=== PATIENT | female | born 1950 | race Caucasian/White ===

== ENCOUNTER → 2018-10-10 08:33 | Outpatient (CLI) | payer MEDICARE, BC, SELFPAY ==
--- NOTE | 2018-10-10 08:44 | XR_ITS ---
XR DEXA axial skeleton HISTORY: ITS.REASON: POST MENOPAUSAL ORDERING PHYSICIAN: Samia Cai APRN PATIENT AGE: 68 years COMPARISON: 05/27/2011 FINDINGS: The BMD measured at the left femoral neck is 0.657 g/cm squared with a T score of -2.7. This is considered osteoporosis according to the World Health Organization criteria. Fracture risk is high. Treatment is advised. L1 L4 density has a T score of -1.3 and has increased by 5.4% The mean hip density has increased by 1.8% IMPRESSION: Osteoporosis with high fracture risk. Treatment is advised. Suggest follow-up exam October 2019
== END ==
PROVIDERS: PCP Family Medicine; Visit Provider Nurse Practitioner Family
DX: M81.0 Age-related osteoporosis without current pathological fracture (principal)
CPT/HCPCS: 77080

== ENCOUNTER 2018-11-05 09:52 | Outpatient (CLI) | payer MEDICARE, BC, SELFPAY ==
[2018-11-05 10:08] VITALS: BP 124/70; PULSE 76; RESP 18; TEMP 36.4; O2SAT 94
[2018-11-05 10:38] VITALS: BP 128/82; PULSE 79; RESP 18; TEMP 36.6; O2SAT 95
== END 2018-11-05 10:38 | disposition home or self-care (01) ==
LOC: INF 09:55
PROVIDERS: PCP Family Medicine; Visit Provider Nurse Practitioner Family
DX: M81.0 Age-related osteoporosis without current pathological fracture (principal)
CPT/HCPCS: 96372; J0897

== ENCOUNTER → 2019-03-12 14:38 | Outpatient (CLI) | payer MEDICARE, BC, SELFPAY ==
--- NOTE | 2019-03-12 14:48 | XR_ITS ---
PROCEDURE: XR RIBS RT MIN 3V W CXR1V CLINICAL INDICATION: RIB PAIN, HX BREAST CANCER Posttraumatic pain, history of breast cancer COMPARISON: [id number] VIEWS from 09/01/2015 FINDINGS: Frontal view of the chest shows slight increased markings in the right lung base probably due to overlying vasculature. No lobar consolidation or collapse. Multiple views of the right ribs show no evidence of acute fracture, lytic change, or blastic change. There is mild lumbar scoliosis convex right. IMPRESSION: No acute findings. The if symptoms persist, consider follow-up exam in 7-[address] with multiplanar reformats Dictated by: Jose Carlos Dempsey MD 03/12/2019 15:12 Electronically signed by Jose Carlos Dempsey MD in [facility] 03/12/2019 15:13
== END ==
PROVIDERS: PCP Family Medicine; Visit Provider Family Medicine
DX: R07.81 Pleurodynia (principal); Z85.3 Personal history of malignant neoplasm of breast
CPT/HCPCS: 71101

== ENCOUNTER → 2019-04-01 11:21 | Outpatient (CLI) | payer MEDICARE, BC, SELFPAY ==
--- NOTE | 2019-04-01 11:28 | XR_ITS ---
PROCEDURE: XR THORACIC SPINE 3V CLINICAL INDICATION: THORACIC PAIN COMPARISON: No exams were available for comparison FINDINGS: Bone density, vertebral body heights and alignment are normal. There is moderate narrowing of the anterior aspect of the disc spaces at several upper and midthoracic levels. Posterior elements appear to be intact and there are no paraspinal soft tissue densities. IMPRESSION: Upper and mid thoracic degenerative disc disease. No acute process. Dictated by: Sonny Ritter 04/01/2019 15:03 Electronically signed by Sonny Ritter in [facility] 04/01/2019 15:03
== END ==
PROVIDERS: PCP Nurse Practitioner Family; Visit Provider Nurse Practitioner Family
DX: M54.6 Pain in thoracic spine (principal)
CPT/HCPCS: 72072

== ENCOUNTER 2019-05-09 09:59 | Outpatient (CLI) | payer MEDICARE, BC, SELFPAY ==
[2019-05-09 10:05] VITALS: BP 110/57; PULSE 83; RESP 20; TEMP 36.9; O2SAT 95
== END 2019-05-09 10:40 | disposition home or self-care (01) ==
LOC: INF 09:59
PROVIDERS: Visit Provider Nurse Practitioner Family
DX: M81.0 Age-related osteoporosis without current pathological fracture (principal)
CPT/HCPCS: 96372; J0897

== ENCOUNTER → 2019-07-26 16:09 | Outpatient (CLI) | payer MEDICARE, BC, SELFPAY ==
--- NOTE | 2019-07-26 | CA_ITS ---
APPROVED REPORT Left Lower Extremity Venous Study for DVT. Production Staff Worker: MARIANA Indications Lower Extremity Pain: Lower Extremity Edema: Left Hyperlipidemia. Risk Factors History of Smoking Patient states her left lower extremity began swelling and hurting 07/22/19. She denies any trauma. She states the pain is so great she is unable to sleep at night. She notes some red streaking on the mid medial calf area of the left LE. Vein Imaging CFV (L): compressive, spontaneous, phasic, augmentation FEM (L): compressive, spontaneous, phasic, augmentation POP (L): compressive, spontaneous, phasic, augmentation PTV (L): Compressible GSV (L): Thrombus SSV (L): Thrombus Peroneals (L):Compressible GAS (L): Compressible Findings No evidence of DVT in LLE. SVT seen in the GSV beginning in the mid thigh and extending to mid calf in the LLE. SVT seen in the SSV in popliteal fossa of the LLE. Conclusion No evidence of DVT in LLE. SVT seen in the GSV beginning in the mid thigh and extending to mid calf in the LLE. SVT seen in the SSV in popliteal fossa of the LLE. Critical Notification Physician Notified Date: 07/26/2019 Time: 16:50 Physician Name: Samia Cai Report Read Back Electronically signed by : Jose Carlos Dempsey MD 07/29/2019 16:23:40
== END ==
PROVIDERS: PCP Family Medicine; Visit Provider Nurse Practitioner Family
DX: M79.89 Other specified soft tissue disorders; M79.605 Pain in left leg
CPT/HCPCS: 93971

== ENCOUNTER → 2019-09-18 10:14 | Outpatient (CLI) | payer MEDICARE, BC, SELFPAY ==
--- NOTE | 2019-09-18 | CA_ITS ---
APPROVED REPORT Left Lower Extremity Venous Study for DVT. Poultry Helper: MARIANA Indications Lower Extremity Pain: Past History SVT : Date : 07/26/19 SVT in distal GSV and SSV 07/26/19 Medications Lovenox Patient states she was placed on blood thinners for 45 days. Vein Imaging CFV (L): compressive, spontaneous, phasic, augmentation FEM (L): compressive, spontaneous, phasic, augmentation POP (L): compressive, spontaneous, phasic, augmentation PTV (L): Compressible GSV (L): Partially Compressible SSV (L): Compressible Peroneals (L):Compressible GAS (L): Compressible Conclusion No evidence of DVT in the veins scanned of the left lower extremity. Resolved SVT of the GSV and SSV seen in LLE. Electronically signed by : Jose Carlos Dempsey MD 09/18/2019 16:17:24
== END ==
PROVIDERS: PCP Family Medicine; Visit Provider Nurse Practitioner Family
DX: I82.812 Embolism and thrombosis of superficial veins of left lower extremity (principal)
CPT/HCPCS: 93971

== ENCOUNTER 2019-11-13 09:55 | Outpatient (CLI) | payer MEDICARE, BC, SELFPAY ==
[2019-11-13 10:10] VITALS: BP 113/75; PULSE 76; RESP 20; TEMP 36.3; O2SAT 96
== END 2019-11-13 10:27 | disposition home or self-care (01) ==
LOC: INF 09:55
PROVIDERS: Visit Provider Nurse Practitioner Family
DX: M81.0 Age-related osteoporosis without current pathological fracture (principal)
CPT/HCPCS: 96372; J0897

== ENCOUNTER → 2020-02-15 11:23 | Outpatient (CLI) | payer MEDICARE, BC, SELFPAY ==
[2020-02-15 12:55] LABS: Coronavirus 19 IgG Antibody Negative (Negative); Coronavirus 19 IgM Antibody Negative (Negative)
== END ==
PROVIDERS: Visit Provider Internal Medicine Gastroenterology
DX: Z01.818 Encounter for other preprocedural examination (principal); Z12.11 Encounter for screening for malignant neoplasm of colon; Z86.010 Personal history of colon polyps
CPT/HCPCS: 36415; 86328

== ENCOUNTER 2020-02-17 11:48 | Day surgery (SDC) | payer MEDICARE, BC, SELFPAY ==
[2020-02-11 14:02] VITALS: BMI 32.0
[2020-02-17 12:17] VITALS: BP 123/72; PULSE 95; RESP 18; TEMP 36.3; O2SAT 95
--- NOTE | 2020-02-17 12:43 | P.PN_ITS ---
[facility] Anesthesia Checklist - Patient Identification Patient Identification: Arm Band - Structural Data Admitted From: Home Planned Operative Procedure/s: colonoscopy Consent for Planned Operative Procedure(s) Verified: Yes Verified Documents: Surgical Consent, History and Physical - NPO Status Verified Time NPO: 00:00 - Additional verifications Anesthesia Reactions: No - Airway Assessment C-Spine Mobility Assessed: Yes (mp2) TMJ Mobility Assessed: Yes Dentition: Good Dentition - Neurological Assessment Level of Consciousness: Awake, Alert - Anesthesia Plan Anesthesia Risk discussed: Yes Anesthesia Plan: Verified ASA Class: III Anesthesia Type: MAC [facility] History I have reviewed the patient's past medical history: Yes Medical History: Reports:: Cancer (breast l), Deep Vein Thrombosis, Hyperlipidemia Denies:: Diabetes Mellitus Type 1, Diabetes Mellitus Type 2, Internal Pacemaker, MRSA, Seizures *Have you ever received a pneumonia vaccine?: No *Have you received a flu vaccine this season?: Yes Other Medical History: Reports: Arthritis, Hormone Therapy Anesthesia experience/problems:: nac Laterality Cases: Left: Lumpectomy, Bilateral: Tonsillectomy Other Surgeries: Yes: Cholecystectomy, Tubal Ligation, Other. No: Pacemaker Amputation: No Fractures: No - *Social History Last grade of school completed: Advanced degree Smoking Status: Current some day smoker Tobacco Type: cigarettes # Packs/Day (cigarettes): 1 Alcohol Intake: never Substance Use Type: denies use *Occupational Status:: retired Housing: house Household Members: none *Travel in the last 8 weeks: None Family Hx:: Cancer, Diabetes, Stroke
[2020-02-17 12:55] VITALS: O2SAT 97
--- NOTE | 2020-02-17 13:23 | P.PCN_ITS ---
[facility] Procedure Note Procedure Note:: Colonoscopy Procedure Report: Colonoscopy with cold snare polypectomy Endoscopist: Kerwin Basilio II, MD Referring physician: Carlton Mcdaniel MD Date of Procedure: February 17, 2020 Equipment: Olympus 180 variable stiffness pediatric colonoscope Sedation: MAC sedation Indication: Mrs. Zamarripa is a 70-year-old female who is here for follow-up screening/surveillance colonoscopy secondary to a personal history of colon polyps. The patient did have a colonoscopy 5 years ago at which time a couple of colon polyps were removed (Dr. Greg Lezama). The patient reports no abdominal pain, weight loss, change in her bowel habits or rectal bleeding. She reports no family history of colon cancer. Procedure: Prior to the procedure, a history and physical exam was performed, and patient's medications and allergies were reviewed. The risks, benefits and alternatives of the sedation and procedure were discussed with the patient. All questions were answered and informed consent was obtained. The patient was brought to the procedure room. Patient identification and proposed procedure were verified by the physician and the nurse. The patient was placed in a left lateral decubitus position and the scope was passed under direct vision. Throughout the procedure, the patient's blood pressure, pulse, and oxygen saturations were monitored continuously. The colonoscopy was accomplished without difficulty. The patient tolerated the procedure well. Findings: On digital rectal examination there was normal rectal tone. There were no external hemorrhoids. The colonoscope was introduced through the anal canal to the rectum and advanced to the cecum. The ileocecal valve and appendiceal orifice were identified. The scope was advanced a short distance into the ileum which appeared grossly normal. The scope was then withdrawn into the colon. There were a total of 8 colon polyps (cecum x2 (3 and 5 mm), ascending x3 (3, 6 and 8 mm), transverse x2 (4 and 5 mm) and descending x1 (3 mm)) which were all removed via cold snare polypectomy. The remaining cecum, ascending and transverse colon and mucosa were grossly normal. There were scattered diverticuli throughout the descending and sigmoid colon (LEFT colon). The rectum itself was normal. Upon retroflexion within the rectum there were grade 1-2 internal hemorrhoids. The preparation was excellent throughout with [place] Preparation Score of 9. The cecal time was 17 minutes. Impression: 1. Colonic polyps x8 2. Left-sided diverticulosis 3. Grade 1-2 internal hemorrhoids Plan: I will follow up the polyp pathology and recommend repeat colonoscopy again in 3 years based upon the polyp histology. I would encourage bulk fiber supplementation on a long-term daily maintenance basis.
[2020-02-17 13:25] VITALS: BP 111/54; PULSE 87; RESP 18; TEMP 36.1; O2SAT 90
[2020-02-17 13:35] VITALS: BP 126/67; PULSE 81; RESP 18; O2SAT 97
[2020-02-17 13:45] VITALS: BP 130/76; PULSE 74; RESP 18; O2SAT 98
[2020-02-17 14:12] VITALS: BP 134/73; PULSE 73; RESP 18; O2SAT 98
== END 2020-02-17 14:25 | disposition home or self-care (01) ==
LOC: OUTP 11:50
PROVIDERS: PCP Family Medicine; Visit Provider Internal Medicine Gastroenterology
PROC: 0DJD8ZZ Inspection of Lower Intestinal Tract, Via Natural or Artificial Opening Endoscopic (ICD-10-PCS; CPT 45378; principal; 2020-02-17 13:00)
DX: Z12.11 Encounter for screening for malignant neoplasm of colon (principal); Z86.010 Personal history of colon polyps; K63.5 Polyp of colon; K57.30 Diverticulosis of large intestine without perforation or abscess without bleeding; K64.0 First degree hemorrhoids; Z85.3 Personal history of malignant neoplasm of breast; E78.5 Hyperlipidemia, unspecified; I82.409 Acute embolism and thrombosis of unspecified deep veins of unspecified lower extremity; Z72.0 Tobacco use; Z88.2 Allergy status to sulfonamides; Z79.899 Other long term (current) drug therapy
CPT/HCPCS: 45385; 88305

== ENCOUNTER → 2020-05-12 12:12 | Outpatient (CLI) | payer MEDICARE, BC, SELFPAY ==
--- NOTE | 2020-05-12 12:32 | XR_ITS ---
PROCEDURE: XR LUMBAR SPINE MIN 4V CLINICAL INDICATION: ACUTE RT SIDED LBP COMPARISON: No exams were available for comparison FINDINGS: Mild lumbar scoliosis convex right. Multilevel degenerative disc disease. No acute fracture or dislocation. Small anterior osteophytes are present. Facet arthritic changes are present at L4-L5 and S1. no lytic or blastic change. There is generalized vascular calcification. IMPRESSION: Degenerative changes, no acute finding Dictated by: Jose Carlos Dempsey MD 05/12/2020 13:22 Jose Carlos Dempsey MD in [facility] 05/12/2020 13:22
== END ==
PROVIDERS: PCP Nurse Practitioner Family; Visit Provider Nurse Practitioner Family
DX: M54.42 Lumbago with sciatica, left side (principal)
CPT/HCPCS: 72110

== ENCOUNTER 2020-06-02 09:53 | Outpatient (CLI) | payer MEDICARE, BC, SELFPAY ==
[2020-06-02 10:18] VITALS: BP 116/69; PULSE 93; RESP 18; TEMP 36.3; O2SAT 95
== END 2020-06-02 10:40 | disposition home or self-care (01) ==
LOC: INF 09:53
PROVIDERS: Visit Provider Nurse Practitioner Family
DX: M81.0 Age-related osteoporosis without current pathological fracture (principal)
CPT/HCPCS: 96372; J0897

== ENCOUNTER → 2020-11-25 08:14 | Outpatient (CLI) | payer MEDICARE, BC, SELFPAY ==
--- NOTE | 2020-11-25 | CA_ITS ---
APPROVED REPORT Loss Prevention Auditor: Kala Ma RVT Laterality: Bilateral Study Quality: Good Indications: DIZZINESS Risk Factors Hypertension: Hyperlipidemia Smoking Doppler Spectral Velocity Analysis ECA (R) 88.30/12.90 cm/s ECA (L) 54.80/13.70 cm/s dICA (R) 88.30/24.00 cm/s dICA (L) 96.80/38.60 cm/s Tayla (R) 53.10/15.40 cm/s Tayla (L) 60.80/20.60 cm/s pICA (R) 52.30/12.90 cm/s pICA (L) 45.40/14.60 cm/s dCCA (R) 40.60/15.00 cm/s dCCA (L) 71.10/24.80 cm/s pCCA (R) 55.60/15.00 cm/s pCCA (L) 59.10/17.10 cm/s Vert (R) 44.60/15.40 cm/s Vert (L) 49.70/13.70 cm/s ICA/CCA 2.17 ICA/CCA 1.36 Findings Study suggests less than 20% stenosis of the right internal cartoid artery. Study suggests less than 20% stenosis of the left internal cartoid artery. Antegrade flow seen bilateral vertebral arteries. Bilateral thyroid nodules seen. Conclusion Study suggests less than 20% stenosis of the right internal cartoid artery. Study suggests less than 20% stenosis of the left internal cartoid artery. Antegrade flow seen bilateral vertebral arteries. Bilateral thyroid nodules seen. Electronically signed by : Jose Carlos Dempsey MD 11/25/2020 17:54:49
--- NOTE | 2020-11-25 08:22 | CT_ITS ---
PROCEDURE: CT HEAD/BRAIN WO CON CLINICAL INDICATION: DIZZINESS COMPARISON: No exams were available for comparison TECHNIQUE: Axial images obtained. All CT scans at the facility use one or more dose reduction, viz: automated exposure control, ma/kV adjustment per patient size (including targeted exams where dose is matched to indication, i.e. head), or iterative reconstruction technique. FINDINGS: No midline shift, mass effect, intracranial hemorrhage, hydrocephalus, or extra-axial fluid collection is evident. The calvarium has an unremarkable appearance. No mastoid effusion. No sinus air-fluid level. IMPRESSION: No acute intracranial finding Dictated by: Jose Carlos Dempsey MD 11/25/2020 17:40 Jose Carlos Dempsey MD in [facility] 11/25/2020 17:40
--- NOTE | 2020-11-25 08:22 | US_ITS ---
PROCEDURE: US ABDOMEN LIMITED CLINICAL INDICATION: ABD PAIN,H/O PANCREATIC CA COMPARISON: No exams were available for comparison FINDINGS: PANCREAS: Pancreatic tail is not well delineated due to overlying bowel gas. CT or MRI without and with contrast with pancreatic protocol may provide further evaluation if clinically desired. The remaining pancreas has an unremarkable appearance. If there is indeed history pancreatic cancer then would suggest CT or MRI of the pancreas for further evaluation. LIVER: No focal liver lesions demonstrated. Homogeneous echogenicity. No intrahepatic biliary ductal dilatation evident. There is appropriate direction of blood flow within a non dilated portal vein RIGHT KIDNEY: Unremarkable. Normal size and echogenicity. No hydronephrosis GALLBLADDER: Prior cholecystectomy. Common bile duct is normal at 3 mm. IMPRESSION: Prior cholecystectomy. Body and head of the pancreas appear unremarkable. The tail is not well visualized. If there is indeed a history of pancreatic cancer then further evaluation with CT or MRI would be suggested. Dictated by: Jose Carlos Dempsey MD 11/25/2020 16:33 Jose Carlos Dempsey MD in [facility] 11/25/2020 16:33
== END ==
PROVIDERS: PCP Family Medicine; Visit Provider Nurse Practitioner Family
DX: R42 Dizziness and giddiness (principal); Z80.0 Family history of malignant neoplasm of digestive organs
CPT/HCPCS: 70450; 76705; 93880

== ENCOUNTER 2020-12-01 09:50 | Outpatient (CLI) | payer MEDICARE, BC, SELFPAY ==
[2020-12-01 10:00] VITALS: BP 101/46; PULSE 89; RESP 20; TEMP 36.9; O2SAT 95
== END 2020-12-01 10:10 | disposition home or self-care (01) ==
LOC: INF 09:52
PROVIDERS: PCP Nurse Practitioner Family; Visit Provider Nurse Practitioner Family
DX: M81.0 Age-related osteoporosis without current pathological fracture (principal)
CPT/HCPCS: 96372; J0897

== ENCOUNTER → 2021-03-12 12:16 | Outpatient (CLI) | payer MEDICARE, BC, SELFPAY ==
--- NOTE | 2021-03-12 12:20 | XR_ITS ---
PROCEDURE: XR KUB CLINICAL INDICATION: FLANK PAIN COMPARISON: No exams were available for comparison FINDINGS: Prior cholecystectomy. There is a moderate amount of retained colonic feces. Numerous small calcific densities are present in the left mid pelvic region. These could be due to ureteral calculi. CT may confirm. IMPRESSION: Numerous calcific densities in the left mid pelvic region which could represent ureteral calculi. CT may confirm Dictated by: Jose Carlos Dempsey MD 03/12/2021 12:54 Jose Carlos Dempsey MD in [facility] 03/12/2021 12:54
== END ==
PROVIDERS: PCP Nurse Practitioner Family; Visit Provider Nurse Practitioner Family
DX: R10.9 Unspecified abdominal pain (principal)
CPT/HCPCS: 74018

== ENCOUNTER → 2021-03-17 14:25 | Outpatient (CLI) | payer MEDICARE, BC, SELFPAY ==
--- NOTE | 2021-03-17 14:28 | CT_ITS ---
PROCEDURE: CT ABDOMEN PELVIS WO CON CLINICAL INDICATION: RENAL CALCULI COMPARISON: No exams were available for comparison TECHNIQUE: Axial images obtained with sagittal and coronal reformats. All CT scans at the facility use one or more dose reduction, viz: automated exposure control, ma/kV adjustment per patient size (including targeted exams where dose is matched to indication, i.e. head), or iterative reconstruction technique. FINDINGS: LOWER THORAX: There is scarring in the right middle lobe. ABDOMEN & PELVIS: The liver, spleen, right adrenal gland, and pancreas have an unremarkable appearance. Mild nodularity noted of the left adrenal gland measuring 1.6 cm consistent with an adenoma. No renal or ureteral calculi. No hydronephrosis. Prior cholecystectomy No intestinal obstruction or free air. No evidence of appendicitis. There is colonic diverticulosis but no evidence of diverticulitis. Coarse calcification noted in the posterior and left aspect of the uterus suggesting fibroid involvement. There is a subcortical area of sclerosis involving the left femoral head and also in the right femoral head consistent with bilateral avascular necrosis which is more extensive on the left. No subchondral collapse or cortical regularity apparent. There is mild lumbar curvature convex right. IMPRESSION: 1. No renal or ureteral calculi. 2. Small left adrenal adenoma. 3. Colonic diverticulosis. No diverticulitis. 4. Bilateral femoral head avascular necrosis Dictated by: Jose Carlos Dempsey MD 03/18/2021 13:48 Jose Carlos Dempsey MD in [facility] 03/18/2021 13:48
== END ==
PROVIDERS: PCP Nurse Practitioner Family; Visit Provider Family Medicine
DX: N20.0 Calculus of kidney (principal)
CPT/HCPCS: 74176

== ENCOUNTER 2021-06-08 10:03 | Outpatient (CLI) | payer MEDICARE, BC, SELFPAY ==
[2021-06-08 10:17] VITALS: BP 109/56; PULSE 91; RESP 18; TEMP 36.2; O2SAT 96
== END 2021-06-08 10:30 | disposition home or self-care (01) ==
LOC: INF 10:05
PROVIDERS: PCP Nurse Practitioner Family; Visit Provider Nurse Practitioner Family
DX: M81.0 Age-related osteoporosis without current pathological fracture (principal)
CPT/HCPCS: 96372; J0897

== ENCOUNTER → 2021-10-05 10:33 | Outpatient (CLI) | payer MEDICARE, BC, SELFPAY ==
--- NOTE | 2021-10-05 10:37 | XR_ITS ---
FINAL REPORT CLINICAL HISTORY: RIGHT KNEE PAIN and swelling..fell 1 month ago FINDINGS: RIGHT KNEE: Three views of the right knee were obtained. There is no acute fracture or dislocation. There are mild degenerative changes. There is no joint effusion. There are several soft tissue calcifications. IMPRESSION: No acute bony abnormality. Reviewed, Interpreted and Dictated by Ezio Carvajal III, MD Transcribed by Carmenza Cardoza Authenticated and [facility]
== END ==
PROVIDERS: PCP Nurse Practitioner Family; Visit Provider Nurse Practitioner Family
DX: M25.561 Pain in right knee (principal)
CPT/HCPCS: 73562

== ENCOUNTER 2021-12-10 12:58 | Outpatient (CLI) | payer MEDICARE, BC, SELFPAY ==
[2021-12-10 13:10] VITALS: BP 130/74; PULSE 117; RESP 18; TEMP 36.2; O2SAT 93
== END 2021-12-10 13:32 | disposition home or self-care (01) ==
LOC: INF 12:59
PROVIDERS: PCP Nurse Practitioner Family; Visit Provider Nurse Practitioner Family
DX: M81.0 Age-related osteoporosis without current pathological fracture (principal)
CPT/HCPCS: 96372; J0897

== ENCOUNTER → 2022-03-07 14:29 | Outpatient (CLI) | payer MEDICARE, BC, SELFPAY ==
--- NOTE | 2022-03-07 | CA_ITS ---
FINAL REPORT TECHNIQUE: Ultrasound images of the deep venous system were obtained from the left groin to the calf veins. CLINICAL HISTORY: HX OF SVT IN LLE 07/26/19, ASA 81 MG FINDINGS: The deep venous system is normally compressible. Normal flow is identified. There is superficial thrombosis of the lesser saphenous and gastrocnemius calf vein. IMPRESSION: No evidence of left lower extremity DVT. Superficial venous thrombosis of the lesser saphenous and gastrocnemius veins. Reviewed, Interpreted and Dictated by August Jimenez MD Transcribed by Leida Moreno Authenticated and [facility]
== END ==
PROVIDERS: PCP Nurse Practitioner Family; Visit Provider Nurse Practitioner Family
DX: M79.662 Pain in left lower leg (principal); Z86.718 Personal history of other venous thrombosis and embolism
CPT/HCPCS: 93971

== ENCOUNTER 2022-06-10 12:33 | Outpatient (CLI) | payer MEDICARE, BC, SELFPAY ==
[2022-06-10 12:42] VITALS: BP 126/76; PULSE 96; RESP 18; TEMP 36.4; O2SAT 98
== END 2022-06-10 12:53 | disposition home or self-care (01) ==
LOC: INF 12:34
PROVIDERS: PCP Nurse Practitioner Family; Visit Provider Nurse Practitioner Family
DX: D75.1 Secondary polycythemia (principal)
CPT/HCPCS: 96372; J0897

== ENCOUNTER 2022-12-14 14:02 | Outpatient (CLI) | payer MEDICARE, BC, SELFPAY ==
[2022-12-14 14:18] VITALS: BP 125/68; PULSE 108; RESP 19; TEMP 36.4; O2SAT 92
== END 2022-12-14 14:18 | disposition home or self-care (01) ==
LOC: INF 14:03
PROVIDERS: PCP Internal Medicine; Visit Provider Nurse Practitioner Family
DX: M81.0 Age-related osteoporosis without current pathological fracture (principal)
CPT/HCPCS: 96372; J0897

== ENCOUNTER 2023-06-13 13:40 | Outpatient (CLI) | payer MEDICARE, BC, SELFPAY ==
[2023-06-13 13:50] VITALS: BP 134/85; PULSE 83; RESP 18; TEMP 36.4; O2SAT 91
[2023-06-13] MEDS: DENOSUMAB 60 MG/ML SYRINGE SQ (13:50)
== END 2023-06-13 14:10 | disposition home or self-care (01) ==
LOC: INF 13:41
PROVIDERS: PCP Family Medicine; Visit Provider Nurse Practitioner
DX: M81.0 Age-related osteoporosis without current pathological fracture (principal)
CPT/HCPCS: 96372; J0897

== ENCOUNTER 2023-08-27 21:54 | Emergency (ER) | payer MEDICARE, BC, SELFPAY ==
--- NOTE | 2023-08-27 22:28 | HMH.EDGENADL ---
Discharge Plan Disposition Patient Disposition: Home, Self-Care Condition: Good Prescriptions Prescriptions: New prednisone 50 mg tablet 50 mg PO DAILY 5 Days Qty: 5 0RF No Action levothyroxine 88 mcg tablet 88 mcg PO DAILY alprazolam 0.5 mg tablet 0.5 mg PO NEEDED PRN (Reason: Anxiety) Dulera 100-5 mcg/actuation HFA aerosol inhaler 1 inh inhalation DAILY nicotine (polacrilex) [Nicorette] 2 mg gum 2 mg buccal Q2H icosapent ethyl 1 gram capsule See Rx Instructions .ROUTE .COMPLEX Qty: 60 0RF Dose Instruction: TAKE ONE CAPSULE BY MOUTH 2 TIMES A DAY Rx Instructions: TAKE ONE CAPSULE BY MOUTH 2 TIMES A DAY atorvastatin 40 MG tablet 40 mg PO HS anastrozole 1 tablet 1 tab PO DAILY aspirin 81 MG tablet,delayed release (DR/EC) 81 mg PO DAILY divalproex 500 MG tablet extended release 24 hr 500 mg PO DAILY olanzapine 15 tablet 15 mg PO DAILY calcium carbonate-vitamin D3 1 EACH tablet 1 each PO DAILY denosumab 60 MG/ML syringe 60 mg SQ MONTHLY Rx Instructions: every 6 months [id number]-igcf-tqw-mvfl-boron 1 EACH tablet,chewable 1 each PO DAILY Referrals Follow up/Referrals: Mane Hutchison MD [Primary Care Provider] - See instructions Roc Liriano DO [Staff Physician] - See instructions (Right shoulder arthralgia) Activity Restrictions/Add. Instructions Additional Instructions/Restrictions: Please call tomorrow make an appointment with either Dr. Liriano or follow-up with your family doctor for referral to physical therapy. Sent a prescription to your pharmacy for a short burst of steroids that should help with inflammation in your shoulder. Please return to emergency department any worsening signs or symptoms including numbness tingling loss of muscle strength etc. Clinical Impressions Clinical Impression: Arthralgia of right shoulder region Discharge ED Provider: Jovan Shore General Adult HPI <BRENDEN Briggs - Last Filed: 08/27/23 23:04> General Chief complaint: PAIN Stated complaint: AO08/08 RT shoulder pain Time Seen by Provider: 08/27/23 22:00 History of Present Illness HPI narrative: Patient presents 1 week after suffering a slip in her shower and nearly falling. She was able to catch herself with her bilateral upper arms and lower herself to the tub basin. However she immediately had right shoulder joint discomfort and has continued despite home remedies including pain medicine and muscle relaxers. Nothing makes it better or worse but there is no position of comfort. Patient denies loss of consciousness headache chest pain shortness of breath fever chills hemoptysis hematochezia melena nausea vomiting diarrhea numbness tingling or paresthesias muscle weakness or flaccidity Related Data Home Medications Medication Instructions Recorded Confirmed anastrozole 1 mg tablet 1 tab PO DAILY CANCER 01/15/19 06/13/23 aspirin 81 mg tablet,delayed 81 mg PO DAILY HEART 01/15/19 06/13/23 release atorvastatin 40 mg tablet 40 mg PO HS Cholesterol 01/15/19 06/13/23 calcium carbonate 600 mg-vitamin 1 each PO DAILY Supplement 01/15/19 06/13/23 D3 20 mcg (800 unit) tablet divalproex 500 mg tablet,extended 500 mg PO DAILY Depression 01/15/19 06/13/23 release 24 hr olanzapine 15 mg tablet 15 mg PO DAILY MOOD 01/15/19 06/13/23 Ca 600 mg-D3 800 unit-magnes 40 1 each PO DAILY Supplement 02/11/20 06/13/23 zg-eimt-pov-ijeoma-boron chewable tablet denosumab 60 mg/mL subcutaneous 60 mg SQ MONTHLY osteoporosis\ 02/11/20 06/13/23 syringe alprazolam 0.5 mg tablet 0.5 mg PO NEEDED PRN Anxiety 09/23/22 06/13/23 levothyroxine 88 mcg tablet 88 mcg PO DAILY thyroid 09/23/22 06/13/23 mometasone-formoterol HFA 100 1 inh inhalation DAILY Breathing 09/23/22 06/13/23 mcg-5 mcg/actuation aerosol Problems inhaler (Dulera) nicotine (polacrilex) 2 mg gum 2 mg buccal Q2H 09/23/22 06/13/23 (Nicorette) Previous Rx's Medication Instructions Recorded icosapent ethyl 1 gram capsule See Rx Instructions .Route 02/14/23 .COMPLEX #60 caps prednisone 50 mg tablet 50 mg PO DAILY 5 days #5 tabs 08/27/23 Allergies Allergy/AdvReac Type Severity Reaction Status Date / Time Sulfa (Sulfonamide Allergy Severe burning Verified 06/13/23 14:46 Antibiotics) shrimp Allergy Unknown Vomiting Verified 06/13/23 14:46 PFSH <BRENDEN Briggs - Last Filed: 08/27/23 23:04> [facility] Disclaimer: The information contained in this section may have been updated after the patient was seen, as this information can be updated by other users. Medical History (Updated 08/27/23 @ 22:58 by BRENDEN Briggs) HLD (hyperlipidemia) Osteoporosis Anxiety and depression Breast cancer Surgical History History of tubal ligation History of lumpectomy of left breast History of cholecystectomy History of colonoscopy Family History Sister Cancer Father Cancer Social History (Updated 06/13/23 @ 14:24 by Leonid Treviño, ALEXANDRA) Smoking Status: Unknown if ever smoked second hand exposure: No (using nicorete) alcohol intake: never substance use type: denies use current occupational status: employed Travel in the last 8 weeks: None household members: none housing: house lives independently: Yes marital status: education level: high school current occupational exposures/hazards: No caffeine: Yes <BRENDEN Briggs - Last Filed: 08/27/23 23:04> ROS Obtained: Yes Systems reviewed as appropriate & no additional complaints except as documented Physical Exam <BRENDEN Briggs - Last Filed: 08/27/23 23:04> General General appearance: alert and in no apparent distress ENT ENT exam: Present normal oropharynx Respiratory Respiratory exam: Present normal lung sounds bilaterally Cardiovascular Cardiovascular exam: Present regular rate and normal rhythm Extremities Exam Extremities exam: Present normal inspection and other (Patient has tenderness to palpation at the posterior aspect of the humeral head but no deformity can be palpated. Patient has preserved motor and sensory and is neurovascularly intact); Absent full ROM (3 unaffected extremities have full range of motion) or tenderness (3 unaffected extremities are nontender to palpation) Back Exam Back exam: Present normal inspection and full ROM; Absent tenderness Neurological Exam Neurological exam: Present alert, oriented X3 and CN II-XII intact Medical Decision Making <BRENDEN Briggs - Last Filed: 08/27/23 23:04> Medical Records Medical records reviewed: Yes I reviewed the patient's medical records. Mike Inquiry Pt receiving controlled substance: No Vital Signs: 08/27/23 22:39 Temperature 98.3 F Temperature Source Oral Pulse Rate [Right Brachial] 88 Respiratory Rate 19 Blood Pressure [Right Arm] 137/65 Blood Pressure Mean [Right Arm] 89 Blood Pressure Source [Right Arm] Automatic Cuff Blood Pressure Position [Right Arm] Sitting 02 Sat by Pulse Oximetry 96 Oxygen Delivery Method Room Air Lab Data Lab results reviewed: Yes I reviewed the patient's lab results. Orders (Tests/Meds): ED MEDICATIONS Discontinued Medications Generic Name Dose Route Start Last Admin Trade Name Remy PRN Reason Stop Dose Admin Dexamethasone 10 mg 08/27/23 22:54 08/27/23 23:14 Dexamethasone 4mg Tablet PO 08/27/23 22:55 10 mg ONCE ONE Administration Ketorolac Tromethamine 60 mg 08/27/23 22:54 08/27/23 23:14 Ketorolac 60mg/2ml Vial IM 08/27/23 22:55 60 mg ONCE ONE Administration ORDERS Category Date Time Status Shoulder XR right miminum 2 views [XR shoulder RT min Exams 08/27/23 22:45 Taken 2V] Stat Medical Decision Narrative: In summary patient is a 73-year-old female who presents to the emergency department for evaluation of right shoulder pain. Patient is hemodynamically stable upon arrival, febrile. Physical exam is remarkable for tenderness to palpation at the posterior aspect of the humeral head however joint appears to be intact with no laxity. Patient has full but discomfort with range of motion testing but is neurovascular intact distally.. Differential diagnosis includes fracture versus soft tissue injury versus ligamentous injury versus labrum injury versus arthritis. Initial workup will be conducted with plain film x-rays. Initial interventions include Toradol Decadron. Initial workup reviewed by myself and her plain film x-ray shows no acute bony abnormality. Given this patient is appropriate for discharge with follow-up with orthopedics after interactive discussion with the patient and patient directed decision making. She also be given a prescription for steroids given that she has been utilizing nonsteroidal pain relief with minimal effect, including Tylenol Flexeril Motrin. <Jovan Shore MD - Last Filed: 08/27/23 23:57> Vital Signs: 08/27/23 22:39 Temperature 98.3 F Temperature Source Oral Pulse Rate [Right Brachial] 88 Respiratory Rate 19 Blood Pressure [Right Arm] 137/65 Blood Pressure Mean [Right Arm] 89 Blood Pressure Source [Right Arm] Automatic Cuff Blood Pressure Position [Right Arm] Sitting 02 Sat by Pulse Oximetry 96 Oxygen Delivery Method Room Air Orders (Tests/Meds): ED MEDICATIONS Discontinued Medications Generic Name Dose Route Start Last Admin Trade Name Remy PRN Reason Stop Dose Admin Dexamethasone 10 mg 08/27/23 22:54 08/27/23 23:14 Dexamethasone 4mg Tablet PO 08/27/23 22:55 10 mg ONCE ONE Administration Ketorolac Tromethamine 60 mg 08/27/23 22:54 08/27/23 23:14 Ketorolac 60mg/2ml Vial IM 08/27/23 22:55 60 mg ONCE ONE Administration ORDERS Category Date Time Status Shoulder XR right miminum 2 views [XR shoulder RT min Exams 08/27/23 22:45 Taken 2V] Stat Medical Decision Narrative: In summary patient is a 73-year-old female who presents to the emergency department for evaluation of right shoulder pain. Patient is hemodynamically stable upon arrival, febrile. Physical exam is remarkable for tenderness to palpation at the posterior aspect of the humeral head however joint appears to be intact with no laxity. Patient has full but discomfort with range of motion testing but is neurovascular intact distally.. Differential diagnosis includes fracture versus soft tissue injury versus ligamentous injury versus labrum injury versus arthritis. Initial workup will be conducted with plain film x-rays. Initial interventions include Toradol Decadron. Initial workup reviewed by myself and her plain film x-ray shows no acute bony abnormality. Given this patient is appropriate for discharge with follow-up with orthopedics or physical therapy after interactive discussion with the patient and patient directed decision making. She also be given a prescription for steroids given that she has been utilizing nonsteroidal pain relief with minimal effect, including Tylenol Flexeril Motrin. Critical Care <BRENDEN Briggs - Last Filed: 08/27/23 23:04> Critical Care Time Critical Care Time: No
[2023-08-27 22:39] VITALS: BP 137/65; PULSE 88; RESP 19; TEMP 36.8; O2SAT 96; BMI 31.3
--- NOTE | 2023-08-27 22:45 | XR_ITS ---
PROCEDURE INFORMATION: Exam: XR Right Shoulder Exam date and time: 08/27/2023 11:22 PM Age: 73 years old Clinical indication: Pain; Shoulder; Right; Additional info: Pain with movement TECHNIQUE: Imaging protocol: Radiologic exam of the right shoulder. Views: 2 or more views. COMPARISON: CR XR RIBS RT MIN 3V W [id number] 03/12/2019 2:49 PM FINDINGS: Bones/joints: The osseous structures are intact, with no signs of acute fracture, dislocation, or malalignment. Age-related degenerative changes are observed. There is no evidence of abnormal bone density or destructive lesions. Soft tissues: The soft tissues appear within normal limits. IMPRESSION: At the time of imaging, the study shows no acute osseous abnormalities but does reveal signs of age-related degenerative changes.
[2023-08-27] MEDS: DEXAMETHASONE 4MG TABLET 10 MG PO (23:14)
[2023-08-27] MEDS: KETOROLAC 60MG/2ML VIAL 60 MG IM (23:14)
[2023-08-28 00:09] VITALS: BP 135/63; PULSE 89; RESP 19; TEMP 36.8; O2SAT 98
== END 2023-08-28 00:11 | disposition home or self-care (01) ==
PROVIDERS: Emergency Provider Emergency Medicine; PCP Family Medicine
DX: M25.511 Pain in right shoulder (principal); W18.2XXA Fall in (into) shower or empty bathtub, initial encounter
CPT/HCPCS: 73030; 96372; 99283

== ENCOUNTER 2023-09-22 19:13 | Emergency (ER) | payer MEDICARE, BC, SELFPAY ==
--- NOTE | 2023-09-22 19:29 | XR_ITS ---
PROCEDURE INFORMATION: Exam: XR Right Hand Exam date and time: 09/22/2023 7:28 PM Age: 73 years old Clinical indication: Injury or trauma; Fall; Blunt trauma (contusions or hematomas); Hand; Right TECHNIQUE: Imaging protocol: Radiologic exam of the right hand. Views: 3 or more views. COMPARISON: No relevant prior studies available. FINDINGS: Bones/joints: Mildly displaced transverse fracture of the proximal metaphysis of the 5th proximal phalanx. No other fracture. No significant arthropathy. Osteopenia. Soft tissues: Normal. IMPRESSION: Mildly displaced transverse fracture of the proximal metaphysis of the 5th proximal phalanx.
--- NOTE | 2023-09-22 19:29 | XR_ITS ---
PROCEDURE INFORMATION: Exam: XR Left Knee Exam date and time: 09/22/2023 7:26 PM Age: 73 years old Clinical indication: Injury or trauma; Fall; Blunt trauma; Knee; Left TECHNIQUE: Imaging protocol: Radiologic exam of the left knee. Views: 3 views. COMPARISON: CR XR FOOT LT MIN 3V 01/15/2019 5:12 PM FINDINGS: Bones/joints: No fracture or dislocation. Minimal tricompartmental degenerative joint disease. Osteopenia. Soft tissues: Normal. IMPRESSION: No acute findings.
[2023-09-22 19:30] VITALS: BP 132/57; PULSE 90; RESP 18; TEMP 36.6; O2SAT 95; BMI 32.0
--- NOTE | 2023-09-22 19:44 | EXP.UTC ---
Discharge Plan Disposition Patient Disposition: Home, Self-Care Condition: Good Prescriptions Prescriptions: No Action levothyroxine 88 mcg tablet 88 mcg PO DAILY alprazolam 0.5 mg tablet 0.5 mg PO NEEDED PRN (Reason: Anxiety) Dulera 100-5 mcg/actuation HFA aerosol inhaler 1 inh inhalation DAILY nicotine (polacrilex) [Nicorette] 2 mg gum 2 mg buccal Q2H icosapent ethyl 1 gram capsule See Rx Instructions .ROUTE .COMPLEX Qty: 60 0RF Dose Instruction: TAKE ONE CAPSULE BY MOUTH 2 TIMES A DAY Rx Instructions: TAKE ONE CAPSULE BY MOUTH 2 TIMES A DAY atorvastatin 40 MG tablet 40 mg PO HS anastrozole 1 tablet 1 tab PO DAILY aspirin 81 MG tablet,delayed release (DR/EC) 81 mg PO DAILY divalproex 500 MG tablet extended release 24 hr 500 mg PO DAILY olanzapine 15 tablet 15 mg PO DAILY calcium carbonate-vitamin D3 1 EACH tablet 1 each PO DAILY denosumab 60 MG/ML syringe 60 mg SQ MONTHLY Rx Instructions: every 6 months [id number]-kot-ahhd-boron 1 EACH tablet,chewable 1 each PO DAILY Referrals Follow up/Referrals: Mane Hutchison MD [Primary Care Provider] - See instructions Roc Liriano DO [Staff Physician] - See instructions Activity Restrictions/Add. Instructions Additional Instructions/Restrictions: Keep splint on this Call ortho Monday for appt Clinical Impressions Clinical Impression: Finger fracture, right Instructions Patient Instructions: DI for Finger Fracture Discharge ED Provider: Christel Winn [facility] HPI General Stated complaint: AO 09/22/23 1715 Injury fingers and face,Left Knee Mode of Arrival: Ambulatory Source of Information: Patient Limitations: No Limitations Time Seen by Provider: 09/22/23 19:55 Description of Symptoms (Recalled from Triage Doc. by RN): Pt fall and injured right finger, left knee, and face. HEENT Symptoms (Recalled from RN notes): No Resp Symptoms (Recalled from RN notes): No Skin Symptoms (Recalled from RN notes): No MS Symptoms (Recalled from RN notes): Yes Functional Status (Recalled from RN notes): n/a History of Present Illness Provider Complaint: Patient fell a few hours [employer]. Was standing on uneven ground, lost her footing. Abrasions to nose and forehead. Pain in 4th and 5th digit of right hand. Abrasions to left knee. Daughter states her pinky was sideways and she pulled it back into place. Onset (ago): hour(s) (2) Location: face, right and upper extremity Relieving factors: none Exacerbating factors: none Associated symptoms: denies other symptoms Treatments prior to arrival: none Related Data Home Medications Medication Instructions Recorded Confirmed anastrozole 1 mg tablet 1 tab PO DAILY CANCER 01/15/19 09/22/23 aspirin 81 mg tablet,delayed 81 mg PO DAILY HEART 01/15/19 09/22/23 release atorvastatin 40 mg tablet 40 mg PO HS Cholesterol 01/15/19 09/22/23 calcium carbonate 600 mg-vitamin 1 each PO DAILY Supplement 01/15/19 09/22/23 D3 20 mcg (800 unit) tablet divalproex 500 mg tablet,extended 500 mg PO DAILY Depression 01/15/19 09/22/23 release 24 hr olanzapine 15 mg tablet 15 mg PO DAILY MOOD 01/15/19 09/22/23 Ca 600 mg-D3 800 unit-magnes 40 1 each PO DAILY Supplement 02/11/20 09/22/23 lg-vrfl-vxe-ijeoma-boron chewable tablet denosumab 60 mg/mL subcutaneous 60 mg SQ MONTHLY osteoporosis\ 02/11/20 09/22/23 syringe alprazolam 0.5 mg tablet 0.5 mg PO NEEDED PRN Anxiety 09/23/22 09/22/23 levothyroxine 88 mcg tablet 88 mcg PO DAILY thyroid 09/23/22 09/22/23 mometasone-formoterol HFA 100 1 inh inhalation DAILY Breathing 09/23/22 09/22/23 mcg-5 mcg/actuation aerosol Problems inhaler (Dulera) nicotine (polacrilex) 2 mg gum 2 mg buccal Q2H 09/23/22 09/22/23 (Nicorette) Previous Rx's Medication Instructions Recorded icosapent ethyl 1 gram capsule See Rx Instructions .Route 02/14/23 .COMPLEX #60 caps Allergies Allergy/AdvReac Type Severity Reaction Status Date / Time Sulfa (Sulfonamide Allergy Severe burning Verified 09/22/23 19:40 Antibiotics) shrimp Allergy Unknown Vomiting Verified 09/22/23 19:40 Worker's Comp Is this a Worker's Comp case?: No [facility] Disclaimer: The information contained in this section may have been updated after the patient was seen, as this information can be updated by other users. Medical History (Updated 09/22/23 @ 20:00 by BRENDEN Calle) HLD (hyperlipidemia) Osteoporosis Anxiety and depression Breast cancer Surgical History History of tubal ligation History of lumpectomy of left breast History of cholecystectomy History of colonoscopy Family History Cancer Sister Father Social History Smoking Status: Unknown if ever smoked second hand exposure: No (using nicorete) alcohol intake: never substance use type: denies use current occupational status: employed Travel in the last 8 weeks: None household members: none housing: house lives independently: Yes marital status: education level: high school current occupational exposures/hazards: No caffeine: Yes ROS Obtained: Yes All systems reviewed & no additional complaints except as documented Musculoskeletal Musculoskeletal: Reports as per HPI Physical Exam General General appearance: alert and in no apparent distress Head Head exam: normocephalic and normal inspection Expanded Head Exam Head exam physical: Present abrasion Head image: 1. abrasion from glasses Eye Eye exam: Present normal appearance, PERRL and EOMI ENT ENT exam: Present normal exam, normal oropharynx, mucous membranes moist, TM's normal bilaterally and normal external ear exam Neck Neck exam: Present normal inspection, full ROM and trachea midline; Absent meningismus or lymphadenopathy Chest Chest inspection: Present normal inspection and symmetric chest wall rise; Absent tenderness Respiratory Respiratory exam: Present normal lung sounds bilaterally; Absent respiratory distress Cardiovascular Cardiovascular exam: Present regular rate and normal rhythm; Absent JVD Abdominal Exam Abdominal exam: Present soft and normal bowel sounds; Absent distention, tenderness or guarding Extremities Exam Extremities exam: Present normal capillary refill; Absent calf tenderness Expanded Upper Extremity Exam Right: Hand exam: Present tenderness, swelling and ecchymosis Hand L/R front image: 1. other (swelling/bruising) Back Exam Back exam: Present normal inspection; Absent tenderness Neurological Exam Neurological exam: Present alert and oriented X3 Psychiatric Psychiatric exam: Present normal affect and normal mood Skin Skin exam: Present warm, dry, intact and normal color Lymphatic Lymphatic Findings: no adenopathy Medical Decision Making Mike Inquiry Pt receiving controlled substance: No Vital Signs: 09/22/23 19:30 Temperature 97.9 F Temperature Source Oral Pulse Rate [Right Radial] 90 Respiratory Rate 18 Blood Pressure [Right Arm] 132/57 L Blood Pressure Mean [Right Arm] 82 Blood Pressure Source [Right Arm] Automatic Cuff Blood Pressure Position [Right Arm] Sitting 02 Sat by Pulse Oximetry 95 Oxygen Delivery Method Room Air Orders (Tests/Meds): ORDERS Category Date Time Status Knee XR left 3 views [XR knee LT 3V] Stat Exams 09/22/23 19:29 Ordered XR hand RT min 3V Stat Exams 09/22/23 19:29 Ordered Radiology Data #1: Image(s): Hand Image Reviewed: Yes I reviewed the patient's radiology results Preliminary Findings: Abnormal fracture 5th digit #2: Image(s): Knee Image Reviewed: Yes I reviewed the patient's radiology results Preliminary Findings: Abnormal pierson's cyst
[2023-09-22 20:11] LABS: Apearance,Urine Clear (Clear); Bilirubin,Urine 1+ (Negative); Blood, Urine Negative (Negative); Color,Urine Dark Yellow (Yellow); Glucose,Urine (UA) Negative (Negative); Ketones,Urine 1+ (Negative); PH,Urine 5.5 (5.0-8.5); Protein,Urine Negative (Negative); UTC Leukocyte Esterase,Urine Negative (Negative); UTC Nitrate,Urine Negative (Negative); Urobilinogen,Urine 0.2 EU/dl (0.2)
[2023-09-22 20:22] VITALS: BP 132/57; PULSE 90; RESP 18; TEMP 36.6; O2SAT 95
== END 2023-09-22 20:22 | disposition home or self-care (01) ==
PROVIDERS: Emergency Provider Physician Assistant; PCP Family Medicine
DX: S62.616A Displaced fracture of proximal phalanx of right little finger, initial encounter for closed fracture (principal); S00.81XA Abrasion of other part of head, initial encounter; S80.212A Abrasion, left knee, initial encounter; B96.89 Other specified bacterial agents as the cause of diseases classified elsewhere; W18.30XA Fall on same level, unspecified, initial encounter
CPT/HCPCS: 73130; 73562; 81003; 87086; 99203; 99212; G0463

== ENCOUNTER 2023-10-02 11:00 | Outpatient (RCR) | payer MEDICARE, BC, SELFPAY | END 2023-10-02 11:55 | disposition home or self-care (01) | LOC: OT 11:00 | PROVIDERS: Visit Provider Orthopaedic Surgery | DX: M25.511 Pain in right shoulder (principal) | CPT/HCPCS: 97010; 97014; 97110; 97140; G0283 ==

== ENCOUNTER 2023-10-11 10:25 | Outpatient (CLI) | payer MEDICARE, BC, SELFPAY ==
--- NOTE | 2023-10-11 10:29 | XR_ITS ---
FINAL REPORT CLINICAL HISTORY: right hand fx COMPARISON: None FINDINGS: RIGHT HAND: 3 views of the right hand were obtained. A splint partially obscures bony detail. There is a fracture of the proximal aspect of the fifth proximal phalanx, with dorsal angulation of the fracture fragments. Visualized joint spaces are normally aligned. Soft tissues are unremarkable. IMPRESSION: Fracture of the proximal aspect of the fifth proximal phalanx, with dorsal angulation of the fracture fragments. Reviewed, Interpreted and Dictated by Ezio Carvajal III, MD Transcribed by Ruby Haines Authenticated and . [facility]
== END 2023-10-11 23:59 | disposition home or self-care (01) ==
LOC: RAD 10:26
PROVIDERS: PCP Family Medicine; Visit Provider Physician Assistant
DX: M79.641 Pain in right hand (principal); S62.616A Displaced fracture of proximal phalanx of right little finger, initial encounter for closed fracture
CPT/HCPCS: 73130

== ENCOUNTER 2023-10-25 10:03 | Outpatient (CLI) | payer MEDICARE, BC, SELFPAY ==
--- NOTE | 2023-10-25 10:08 | XR_ITS ---
FINAL REPORT CLINICAL HISTORY: Rt Hand Pain FINDINGS: AP, lateral and oblique views of the right hand were obtained. There is no prior exam for comparison. There is no acute fracture or dislocation. There is mild multi joint degenerative disease. The soft tissues are normal. IMPRESSION: Mild degenerative changes without acute osseous abnormality of the right hand. Reviewed, Interpreted and Dictated by Maritza Villela MD Transcribed by Tonie Cox Authenticated and [facility]
== END 2023-10-25 23:59 | disposition home or self-care (01) ==
LOC: RAD 10:05
PROVIDERS: PCP Family Medicine; Visit Provider Orthopaedic Surgery
DX: M79.641 Pain in right hand (principal)
CPT/HCPCS: 73130

== ENCOUNTER 2023-11-06 10:19 | Outpatient (CLI) | payer MEDICARE, BC, SELFPAY ==
--- NOTE | 2023-11-06 10:26 | XR_ITS ---
FINAL REPORT CLINICAL HISTORY: right pinky fc COMPARISON: 10/25/2023 FINDINGS: AP, lateral and oblique views of the right hand were obtained. There has been interval healing of a fracture of the base of the fifth proximal phalanx. Mild multijoint degenerative change is present. The soft tissues are normal. IMPRESSION: Interval healing of a fracture involving the base of the fifth proximal phalanx. Mild multijoint degenerative changes present. Reviewed, Interpreted and Dictated by Maritza Villela MD Transcribed by Ruby Haines Authenticated and [facility]
== END 2023-11-06 23:59 | disposition home or self-care (01) ==
LOC: RAD 10:20
PROVIDERS: PCP Family Medicine; Visit Provider Physician Assistant
DX: M79.644 Pain in right finger(s) (principal); S62.616A Displaced fracture of proximal phalanx of right little finger, initial encounter for closed fracture
CPT/HCPCS: 73130

== ENCOUNTER 2023-12-05 14:08 | Outpatient (CLI) | payer MEDICARE, BC, SELFPAY ==
--- NOTE | 2023-12-05 14:14 | XR_ITS ---
FINAL REPORT CLINICAL HISTORY: Rt hand pain COMPARISON: 11/06/2023 FINDINGS: RIGHT HAND Three views demonstrate healing fracture deformity of the base of the 5th proximal phalanx. Callus formation is noted. There is no evidence of intra-articular extension. The visualized joint spaces are normally aligned. The soft tissues are unremarkable. IMPRESSION: Healing fracture deformity 5th proximal phalanx. Reviewed, Interpreted and Dictated by Dwain Spence MD Transcribed by Tonie Cox Authenticated and [facility]
== END 2023-12-05 23:59 | disposition home or self-care (01) ==
LOC: RAD 14:10
PROVIDERS: PCP Family Medicine; Visit Provider Orthopaedic Surgery
DX: M79.641 Pain in right hand (principal); S62.609A Fracture of unspecified phalanx of unspecified finger, initial encounter for closed fracture
CPT/HCPCS: 73130

== ENCOUNTER 2023-12-13 15:00 | Outpatient (RCR) | payer MEDICARE, BC, SELFPAY | END 2023-12-13 15:05 | disposition home or self-care (01) | LOC: OT 15:00 | PROVIDERS: Visit Provider Physician Assistant Surgical | DX: M79.644 Pain in right finger(s) (principal); S62.616A Displaced fracture of proximal phalanx of right little finger, initial encounter for closed fracture | CPT/HCPCS: 97035; 97110; 97140; 97165; 97763 ==

== ENCOUNTER 2023-12-14 12:56 | Outpatient (CLI) | payer MEDICARE, BC, SELFPAY ==
[2023-12-14 13:26] VITALS: BP 117/65; PULSE 82; RESP 18; TEMP 36.2; O2SAT 91
[2023-12-14] MEDS: DENOSUMAB 60 MG/ML SYRINGE SQ (13:26)
== END 2023-12-14 13:36 | disposition home or self-care (01) ==
LOC: INF 12:57
PROVIDERS: PCP Family Medicine; Visit Provider Nurse Practitioner
DX: M81.0 Age-related osteoporosis without current pathological fracture (principal)
CPT/HCPCS: 96372; J0897

== ENCOUNTER 2024-06-12 13:01 | Outpatient (CLI) | payer MEDICARE, BC, SELFPAY ==
[2024-06-12 13:10] VITALS: BP 136/80; PULSE 103; RESP 18; TEMP 36.8; O2SAT 91
[2024-06-12] MEDS: DENOSUMAB 60 MG/ML SYRINGE SUBCUT (13:10)
== END 2024-06-12 13:23 | disposition home or self-care (01) ==
LOC: INF 13:02
PROVIDERS: PCP Nurse Practitioner Family; Visit Provider Nurse Practitioner
DX: M81.0 Age-related osteoporosis without current pathological fracture (principal)
CPT/HCPCS: 96372; J0897

== ENCOUNTER 2024-09-28 19:21 | Outpatient (CLI) | payer MEDICARE, BC, SELFPAY ==
--- OUTSIDE RECORDS SUMMARY | 2024-09-30 12:47 | XMS_ITS | Data Portability ---
Author Organization [facility] Address [address] [facility] [address] [place] [address] Care Team Providers Care Gas Distribution And Emergency Clerk Name Role ARLENE Concepcion Medical Oncologist MABEL HOFFMAN Primary Care Provider [phone] LIZZ BILLINGSLEY Referring Provider [phone] Assessment Encounter Date Assessment Date Assessment LastModified by Organization Details LastModified Time 11/22/2017 11/22/2017 This is a 67-year-old female, three years out from the above cancer. At this point, this area within the suture line, I think, is probably development of just some fatty necrosis along this line, but however, given the fact that the patient feels that things are more swollen, I think we would recommend to go ahead and get mammogram and ultrasound today. If all this is good, then we will just see her in February when she is due for her complete mammogram and just kind of reevaluate this area with physical exam. She is agreeable to the plan. 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 We will see her back in just about three months and redo mammogram on both sides screening and move forward from there. [email or web address] Not available 11/24/2017 02:58:58 03/09/2018 03/09/2018 This is a 68-year-old female with above history of ER positive, HER-2/maria luz positive breast cancer. At this point now on hormonal therapy, no evidence of recurrence of disease. We will simply see her back now in a year with repeat labs, exam and mammogram. [email or web address] Not available 03/14/2018 08:26:49 09/06/2023 09/06/2023 Assessment: Right shoulder impingement secondary to improper scapular mechanics after an acute fall Plan: We discussed the anatomy of the shoulder and physiology of the scapula and upper trapezius. I assured her the problem is not anatomical, rather functional. We discussed the importance of proper scapular mechanics to minimize fatigue and compensation. I advised against long lever arm movements to minimize sx. I recommended PT for scapular motion and stability. F/U as needed. [email or web address] Not available 09/06/2023 11:09:49 Plan of Treatment Reminders Order Date Submit Date Provider Last Modified By Organization Details Last Modified Time Details Appointments None recorded. Lab culture, urine 2022 023 [facility], [address] [place] [address], [id number], 3 11:32:50 urinalysis panel, auto [address] [facility], [address], [address], [address], 3 12:39:15 urinalysis panel, auto [address] [facility], [address], [address], [place], [address], 3 21:03:21 Referral None recorded. Procedures None recorded. Surgeries None recorded. Imaging None recorded. Medication Orders None recorded. Patient TargetsNo targets recorded. Patient InstructionsNo instructions recorded. Reason for Referral None Reported. Results Created Date Observation Date Name Description Value Unit Range Abnormal Flag Note LastModifiedBy Organization Detail LastModifiedTime 11/23/19 18 11/22/2017 CBC w/ auto diff white blood cells 5.9 K/uL 3.8-10 .8 normal Not Available [facility] [address] [place] [address] [place], [address], 11/22/2017 10:45:57 11/23/19 18 11/22/2017 CBC w/ auto diff red blood cells 4.71 M/uL 3.80-5 .20 normal Not Available [facility] [address] [place] [address], [address], 11/22/2017 10:45:57 11/23/19 18 11/22/2017 CBC w/ auto diff hemoglobin 14.8 g/dL 12.0-1 6.0 normal Not Available [facility] [address] [place] [address], [address], 11/22/2017 10:45:57 11/23/19 18 11/22/2017 CBC w/ auto diff hematocrit 43.3 % 35.0-4 7.0 normal Not Available [facility] [address] [place] [address], [address], 11/22/2017 10:45:57 11/23/19 18 11/22/2017 CBC w/ auto diff MCV 92 fL 80-100 normal Not Available [facility] [address] [place] [address], [address], 11/22/2017 10:45:57 11/23/19 18 11/22/2017 CBC w/ auto diff MCH 32 pg 26-35 normal Not Available [facility] [address] [place] [address], [address], 11/22/2017 10:45:57 11/23/19 18 11/22/2017 CBC w/ auto diff MCHC 34 g/dL 32-36 normal Not Available [facility] [address] [place] [address], [address], 11/22/2017 10:45:57 11/23/19 18 11/22/2017 CBC w/ auto diff RDW 13.4 % 11.0-1 5.0 normal Not Available [facility] [address] [place] [address], [address], 11/22/2017 10:45:57 11/23/19 18 11/22/2017 CBC w/ auto diff MPV 7.2 fL 6.2-10 .5 normal Not Available [facility] [address] [place] [address], [address], 11/22/2017 10:45:57 11/23/19 18 11/22/2017 CBC w/ auto diff platelet count 283 K/uL 130-40 0 normal Not Available [facility] [address] [place] [address], [address], 11/22/2017 10:45:57 11/23/19 18 11/22/2017 CBC w/ auto diff neutrophil,a bsolute 3.3 K/uL 1.6-8. 4 normal Not Available [facility] [address] [place] [address], [address], 11/22/2017 10:45:57 11/23/19 18 11/22/2017 CBC w/ auto diff lymphocyte,a bsolute 1.7 K/uL 0.4-5. 1 normal Not Available [facility] [address] [place] [address], [address], 11/22/2017 10:45:57 11/23/19 18 11/22/2017 CBC w/ auto diff monocyte,abs olute 0.8 K/uL 0.0-1. 2 normal Not Available [facility] [address] [place] [address], [address], 11/22/2017 10:45:57 11/23/19 18 11/22/2017 CBC w/ auto diff eosinophil,a bsolute 0.1 K/uL 0.0-0. 8 normal Not Available [facility] [address] [place] [address], [address], 11/22/2017 10:45:57 11/23/19 18 11/22/2017 CBC w/ auto diff basophil,abs olute 0.0 K/uL 0.0-0. 3 normal Not Available [facility] [address] [place] [address], [address], 11/22/2017 10:45:57 11/23/19 18 11/22/2017 CBC w/ auto diff % neutrophils 56.2 % 42.0-7 8.0 normal Not Available [facility] [address] [place] [address], [address], 11/22/2017 10:45:57 11/23/19 18 11/22/2017 CBC w/ auto diff % lymphocytes 28.3 % 11.0-4 7.0 normal Not Available [facility] [address] [place] [address], [address], 11/22/2017 10:45:57 11/23/19 18 11/22/2017 CBC w/ auto diff % monocytes 13.0 % 0.0-11 .0 high Not Available [facility] [address] [place] [address], [address], 11/22/2017 10:45:57 11/23/19 18 11/22/2017 CBC w/ auto diff % eosinophils 1.9 % 0.0-7. 0 normal Not Available [facility] [address] [place] [address], [address], 11/22/2017 10:45:57 11/23/19 18 11/22/2017 CBC w/ auto diff % basophils 0.6 % 0.0-3. 0 normal Not Available [facility] [address] [place] [address], [address], 11/22/2017 10:45:57 11/23/19 18 11/22/2017 CBC w/ auto diff nucleated red cells 0.1 % 0.0-0. 9 normal Not Available [facility] [address] [place] [address], [address], 11/22/2017 10:45:57 11/23/19 18 11/22/2017 CBC w/ auto diff nucleated RBCs, absolute 0.00 K/uL not estab. normal Not Available [facility] [address] [place] [address], [address], 11/22/2017 10:45:57 11/23/19 18 11/22/2017 CMP, serum or plasm a glucose 101 mg/dL 74-100 high Not Available [facility] [address] [place] [address], [address], 11/22/2017 11:21:16 11/23/19 18 11/22/2017 CMP, serum or plasm a blood urea nitrogen 14 mg/dL 6-20 normal Not Available [facility] [address] [place] [address], [address], 11/22/2017 11:21:16 11/23/19 18 11/22/2017 CMP, serum or plasm a creatinine 0.84 mg/dL 0.50-0 .95 normal Not Available [facility] [address] [place] [address], [address], 11/22/2017 11:21:16 11/23/19 18 11/22/2017 CMP, serum or plasm a BUN/creatini ne ratio 17 (calc ) 10-20 normal Not Available [facility] [address] [place] [address], [address], 11/22/2017 11:21:16 11/23/19 18 11/22/2017 CMP, serum or plasm a sodium 144 mmol/ L 136-14 5 normal Not Available [facility] [address] [place] [address], [address], 11/22/2017 11:21:16 11/23/19 18 11/22/2017 CMP, serum or plasm a potassium 4.1 mmol/ L 3.4-5. 0 normal Not Available [facility] [address] [place] [address], [address], 11/22/2017 11:21:16 11/23/19 18 11/22/2017 CMP, serum or plasm a chloride 104 mmol/ L 98-107 normal Not Available [facility] [address] [place] [address], [address], 11/22/2017 11:21:16 11/23/19 18 11/22/2017 CMP, serum or plasm a carbon dioxide 27 mmol/ L 20-32 normal Not Available [facility] [address] [place] [address], [address], 11/22/2017 11:21:16 11/23/19 18 11/22/2017 CMP, serum or plasm a anion gap 13 (calc ) 7-25 normal Not Available [facility] [address] [place] [address], [address], 11/22/2017 11:21:16 11/23/19 18 11/22/2017 CMP, serum or plasm a calcium 9.6 mg/dL 8.6-10 .2 normal Not Available [facility] [address] [place] [address], [address], 11/22/2017 11:21:16 11/23/19 18 11/22/2017 CMP, serum or plasm a total protein 6.6 g/dL 6.4-8. 3 normal Not Available [facility] [address] [place] [address], [address], 11/22/2017 11:21:16 11/23/19 18 11/22/2017 CMP, serum or plasm a albumin 4.2 g/dL 3.5-5. 2 normal Not Available [facility] [address] [place] [address], [address], 11/22/2017 11:21:16 11/23/19 18 11/22/2017 CMP, serum or plasm a globulin 2.4 g/dL_ (calc ) 1.5-4. 5 normal Not Available [facility] [address] [place] [address], [address], 11/22/2017 11:21:16 11/23/19 18 11/22/2017 CMP, serum or plasm a albumin/glob ulin ratio 1.8 (calc ) 1.1-2. 5 normal Not Available [facility] [address] [place] [address], [address], 11/22/2017 11:21:16 11/23/19 18 11/22/2017 CMP, serum or plasm a bilirubin, total 0.2 mg/dL 0.1-1. 2 normal Not Available [facility] [address] [place] [address], [address], 11/22/2017 11:21:16 11/23/19 18 11/22/2017 CMP, serum or plasm a alkaline phosphatase 73 U/L 35-105 normal Not Available [facility] [address] [place] [address], [address], 11/22/2017 11:21:16 11/23/19 18 11/22/2017 CMP, serum or plasm a AST 15 U/L 0-32 normal Not Available [facility] [address] [place] [address], [address], 11/22/2017 11:21:16 11/23/19 18 11/22/2017 CMP, serum or plasm a ALT 15 U/L 0-33 normal Not Available [facility] [address] [place] [address], [address], 11/22/2017 11:21:16 11/23/19 18 11/22/2017 CMP, serum or plasm a GFR 84 >= 60 normal Not Available [facility] [address] [place], [address], 11/22/2017 11:21:16 11/23/19 18 11/22/2017 CMP, serum or plasm a GFR non- 73 >= 60 normal NOT E Calcu latio n for GFR is based on the Natio nal Kidne y Found ation CKD-E PI equat ion and allow s for repor ting GFR value s great er than 60 mL/mi n/1.7 3 m2. This calcu latio n has not been valid ated for patie nts less than 18 yrs., pregn ant women and Hispa nics. Chron ic kidne y disea se is defin ed as kidne y damag e or GFR less than 60 mL/mi n/1.7 3 m2 for 3 month s or longe r. . Not Available [facility] [address] [place], [address], 11/22/2017 11:21:16 03/09/20 18 03/09/2018 CBC w/ auto diff white blood cells 5.4 K/uL 3.8-10 .8 normal Not Available [facility] [address] [place] [address], [address], 03/09/2018 10:55:19 03/09/20 18 03/09/2018 CBC w/ auto diff red blood cells 4.64 M/uL 3.80-5 .20 normal Not Available [facility] [address] [place] [address], [address], 03/09/2018 10:55:19 03/09/20 18 03/09/2018 CBC w/ auto diff hemoglobin 14.2 g/dL 12.0-1 6.0 normal Not Available [facility] [address] [place], [address], 03/09/2018 10:55:19 03/09/20 18 03/09/2018 CBC w/ auto diff hematocrit 42.7 % 35.0-4 7.0 normal Not Available [facility] [address] [place] [address], [address], 03/09/2018 10:55:19 03/09/20 18 03/09/2018 CBC w/ auto diff MCV 92 fL 80-100 normal Not Available [facility] [address] [place], [address], 03/09/2018 10:55:19 03/09/20 18 03/09/2018 CBC w/ auto diff MCH 31 pg 26-35 normal Not Available [facility] [address] [place] [address], [address], 03/09/2018 10:55:19 03/09/20 18 03/09/2018 CBC w/ auto diff MCHC 33 g/dL 32-36 normal Not Available [facility] [address] [place] [address], [address], 03/09/2018 10:55:19 03/09/20 18 03/09/2018 CBC w/ auto diff RDW 13.1 % 11.0-1 5.0 normal Not Available [facility] [address] [place] [address], [address], 03/09/2018 10:55:19 03/09/20 18 03/09/2018 CBC w/ auto diff MPV 7.1 fL 6.2-10 .5 normal Not Available [facility] [address] [place] [address], [address], 03/09/2018 10:55:19 03/09/20 18 03/09/2018 CBC w/ auto diff platelet count 270 K/uL 130-40 0 normal Not Available [facility] [address] [place] [address], [address], 03/09/2018 10:55:19 03/09/20 18 03/09/2018 CBC w/ auto diff neutrophil,a bsolute 3.3 K/uL 1.6-8. 4 normal Not Available [facility] [address] [place] [address], [address], 03/09/2018 10:55:19 03/09/20 18 03/09/2018 CBC w/ auto diff lymphocyte,a bsolute 1.4 K/uL 0.4-5. 1 normal Not Available [facility] [address] [place] [address], [address], 03/09/2018 10:55:19 03/09/20 18 03/09/2018 CBC w/ auto diff monocyte,abs olute 0.6 K/uL 0.0-1. 2 normal Not Available [facility] [address] [place] [address], [address], 03/09/2018 10:55:19 03/09/20 18 03/09/2018 CBC w/ auto diff eosinophil,a bsolute 0.1 K/uL 0.0-0. 8 normal Not Available [facility] [address] [place] [address], [address], 03/09/2018 10:55:19 03/09/20 18 03/09/2018 CBC w/ auto diff basophil,abs olute 0.0 K/uL 0.0-0. 3 normal Not Available [facility] [address] [place] [address], [address], 03/09/2018 10:55:19 03/09/20 18 03/09/2018 CBC w/ auto diff % neutrophils 60.6 % 42.0-7 8.0 normal Not Available [facility] [address] [place] [address], [address], 03/09/2018 10:55:19 03/09/20 18 03/09/2018 CBC w/ auto diff % lymphocytes 26.7 % 11.0-4 7.0 normal Not Available [facility] [address] [place] [address], [address], 03/09/2018 10:55:19 03/09/20 18 03/09/2018 CBC w/ auto diff % monocytes 10.2 % 0.0-11 .0 normal Not Available [facility] [address] [place] [address], [address], 03/09/2018 10:55:19 03/09/20 18 03/09/2018 CBC w/ auto diff % eosinophils 1.9 % 0.0-7. 0 normal Not Available [facility] [address] [place] [address], [address], 03/09/2018 10:55:19 03/09/20 18 03/09/2018 CBC w/ auto diff % basophils 0.6 % 0.0-3. 0 normal Not Available [facility] [address] [place] [address], [address], 03/09/2018 10:55:19 03/09/20 18 03/09/2018 CBC w/ auto diff nucleated red cells 0.0 % 0.0-0. 9 normal Not Available [facility] [address] [place] [address], [address], 03/09/2018 10:55:19 03/09/20 18 03/09/2018 CBC w/ auto diff nucleated RBCs, absolute 0.00 K/uL not estab. normal Not Available [facility] [address] [place] [address], [address], 03/09/2018 10:55:19 03/09/20 18 03/09/2018 CMP, serum or plasm a glucose 108 mg/dL 74-100 high Not Available [facility] [address] [place] [address], [address], 03/09/2018 11:13:53 03/09/20 18 03/09/2018 CMP, serum or plasm a blood urea nitrogen 13 mg/dL 6-20 normal Not Available [facility] [address] [place] [address], [address], 03/09/2018 11:13:53 03/09/20 18 03/09/2018 CMP, serum or plasm a creatinine 0.72 mg/dL 0.50-0 .95 normal Not Available [facility] [address] [place] [address], [address], 03/09/2018 11:13:53 03/09/20 18 03/09/2018 CMP, serum or plasm a BUN/creatini ne ratio 18 (calc ) 10-20 normal Not Available [facility] [address] [place] [address], [address], 03/09/2018 11:13:53 03/09/20 18 03/09/2018 CMP, serum or plasm a sodium 143 mmol/ L 136-14 5 normal Not Available [facility] [address] [place] [address], [address], 03/09/2018 11:13:53 03/09/20 18 03/09/2018 CMP, serum or plasm a potassium 4.4 mmol/ L 3.4-5. 0 normal Not Available [facility] [address] [place] [address], [address], 03/09/2018 11:13:53 03/09/20 18 03/09/2018 CMP, serum or plasm a chloride 105 mmol/ L 98-107 normal Not Available [facility] [address] [place] [address], [address], 03/09/2018 11:13:53 03/09/20 18 03/09/2018 CMP, serum or plasm a carbon dioxide 28 mmol/ L 20-32 normal Not Available [facility] [address] [place] [address], [address], 03/09/2018 11:13:53 03/09/20 18 03/09/2018 CMP, serum or plasm a anion gap 10 (calc ) 7-25 normal Not Available [facility] [address] [place] [address], [address], 03/09/2018 11:13:53 03/09/20 18 03/09/2018 CMP, serum or plasm a calcium 9.6 mg/dL 8.6-10 .2 normal Not Available [facility] [address] [place] [address], [address], 03/09/2018 11:13:53 03/09/20 18 03/09/2018 CMP, serum or plasm a total protein 6.7 g/dL 6.4-8. 3 normal Not Available [facility] [address] [place] [address], [address], 03/09/2018 11:13:53 03/09/20 18 03/09/2018 CMP, serum or plasm a albumin 4.5 g/dL 3.5-5. 2 normal Not Available [facility] [address] [place] [address], [address], 03/09/2018 11:13:53 03/09/20 18 03/09/2018 CMP, serum or plasm a globulin 2.2 g/dL_ (calc ) 1.5-4. 5 normal Not Available [facility] [address] [place] [address], [address], 03/09/2018 11:13:53 03/09/20 18 03/09/2018 CMP, serum or plasm a albumin/glob ulin ratio 2.0 (calc ) 1.1-2. 5 normal Not Available [facility] [address] [place] [address], [address], 03/09/2018 11:13:53 03/09/20 18 03/09/2018 CMP, serum or plasm a bilirubin, total 0.3 mg/dL 0.1-1. 2 normal Not Available [facility] [address] [place] [address], [address], 03/09/2018 11:13:53 03/09/20 18 03/09/2018 CMP, serum or plasm a alkaline phosphatase 70 U/L 35-105 normal Not Available [facility] [address] [place] [address], [address], 03/09/2018 11:13:53 03/09/20 18 03/09/2018 CMP, serum or plasm a AST 20 U/L 0-32 normal Not Available [facility] [address] [place] [address], [address], 03/09/2018 11:13:53 03/09/20 18 03/09/2018 CMP, serum or plasm a ALT 29 U/L 0-33 normal Not Available [facility] [address] [place] [address], [address], 03/09/2018 11:13:53 03/09/20 18 03/09/2018 CMP, serum or plasm a GFR 101 >= 60 normal Not Available [facility] [address] [place] [address], [address], 03/09/2018 11:13:53 03/09/20 18 03/09/2018 CMP, serum or plasm a GFR non- 87 >= 60 normal NOT E NEW calcu latio n for GFR is based on the Natio nal Kidne y Found ation CKD-E PI equat ion and allow s for repor ting GFR value s great er than 60 mL/mi n/1.7 3 m2. This calcu latio n has not been valid ated for patie nts less than 18 yrs., pregn ant women and Hispa nics. Chron ic kidne y disea se is defin ed as kidne y damag e or GFR less than 60 mL/mi n/1.7 3 m2 for 3 month s or longe r. Not Available [facility] [address] [place] [address], [address], 03/09/2018 11:13:53 03/15/20 19 03/15/2019 CMP, serum or plasm a glucose 121 mg/dL 74-100 high Not Available [facility] [address] [place] [address], [address], 03/15/2019 11:09:34 03/15/20 19 03/15/2019 CMP, serum or plasm a blood urea nitrogen 10 mg/dL 6-20 normal Not Available [facility] [address] [place] [address], [address], 03/15/2019 11:09:34 03/15/20 19 03/15/2019 CMP, serum or plasm a creatinine 0.67 mg/dL 0.50-0 .95 normal Not Available [facility] [address] [place] [address], [address], 03/15/2019 11:09:34 03/15/20 19 03/15/2019 CMP, serum or plasm a BUN/creatini ne ratio 15 (calc ) 10-20 normal Not Available [facility] [address] [place] [address], [address], 03/15/2019 11:09:34 03/15/20 19 03/15/2019 CMP, serum or plasm a sodium 143 mmol/ L 136-14 5 normal Not Available [facility] [address] [place] [address], [address], 03/15/2019 11:09:34 03/15/20 19 03/15/2019 CMP, serum or plasm a potassium 4.3 mmol/ L 3.4-5. 0 normal Not Available [facility] [address] [place] [address], [address], 03/15/2019 11:09:34 03/15/20 19 03/15/2019 CMP, serum or plasm a chloride 104 mmol/ L 98-107 normal Not Available [facility] [address] [place] [address], [address], 03/15/2019 11:09:34 03/15/20 19 03/15/2019 CMP, serum or plasm a carbon dioxide 24 mmol/ L 20-32 normal Not Available [facility] [address] [place] [address], [address], 03/15/2019 11:09:34 03/15/20 19 03/15/2019 CMP, serum or plasm a anion gap 15 (calc ) 7-25 normal Not Available [facility] [address] [place] [address], [address], 03/15/2019 11:09:34 03/15/20 19 03/15/2019 CMP, serum or plasm a calcium 9.4 mg/dL 8.6-10 .2 normal Not Available [facility] [address] [place] [address], [address], 03/15/2019 11:09:34 03/15/20 19 03/15/2019 CMP, serum or plasm a total protein 6.9 g/dL 6.4-8. 3 normal Not Available [facility] [address] [place] [address], [address], 03/15/2019 11:09:34 03/15/20 19 03/15/2019 CMP, serum or plasm a albumin 4.4 g/dL 3.5-5. 2 normal Not Available [facility] [address] [place], [address], 03/15/2019 11:09:34 03/15/20 19 03/15/2019 CMP, serum or plasm a globulin 2.5 g/dL_ (calc ) 1.5-4. 5 normal Not Available [facility] [address] [place] [address], [address], 03/15/2019 11:09:34 03/15/20 19 03/15/2019 CMP, serum or plasm a albumin/glob ulin ratio 1.8 (calc ) 1.1-2. 5 normal Not Available [facility] [address] [place] [address], [address], 03/15/2019 11:09:34 03/15/20 19 03/15/2019 CMP, serum or plasm a bilirubin, total <0.2 mg/dL 0.1-1. 2 normal Not Available [facility] [address] [place] [address], [address], 03/15/2019 11:09:34 03/15/20 19 03/15/2019 CMP, serum or plasm a alkaline phosphatase 60 U/L 35-105 normal Not Available [facility] [facility] [address] [place], [address], 03/15/2019 11:09:34 03/15/20 19 03/15/2019 CMP, serum or plasm a AST 15 U/L 0-32 normal Not Available [facility] [address] [place] [address], [address], 03/15/2019 11:09:34 03/15/20 19 03/15/2019 CMP, serum or plasm a ALT 16 U/L 0-33 normal Not Available [facility] [address] [place] [address], [address], 03/15/2019 11:09:34 03/15/20 19 03/15/2019 CMP, serum or plasm a GFR 105 >= 60 normal Not Available [facility] [address] [place], [address], 03/15/2019 11:09:34 03/15/20 19 03/15/2019 CMP, serum or plasm a GFR non- 91 >= 60 normal NOT E NEW calcu latio n for GFR is based on the Natio nal Kidne y Found ation CKD-E PI equat ion and allow s for repor ting GFR value s great er than 60 mL/mi n/1.7 3 m2. This calcu latio n has not been valid ated for patie nts less than 18 yrs., pregn ant women and Hispa nics. Chron ic kidne y disea se is defin ed as kidne y damag e or GFR less than 60 mL/mi n/1.7 3 m2 for 3 month s or longe r. Not Available [facility] [address] [place] [address], [address], 03/15/2019 11:09:34 03/15/20 19 03/15/2019 CBC w/ auto diff white blood cells 5.5 K/uL 3.8-10 .8 normal Not Available [facility] [address] [place] [address], [address], 03/15/2019 10:42:32 03/15/20 19 03/15/2019 CBC w/ auto diff red blood cells 4.51 M/uL 3.80-5 .20 normal Not Available [facility] [address] [place] [address], [address], 03/15/2019 10:42:32 03/15/20 19 03/15/2019 CBC w/ auto diff hemoglobin 13.9 g/dL 12.0-1 6.0 normal Not Available [facility] [address] [place], [address], 03/15/2019 10:42:32 03/15/20 19 03/15/2019 CBC w/ auto diff hematocrit 40.6 % 35.0-4 7.0 normal Not Available [facility] [address] [place] [address], [address], 03/15/2019 10:42:32 03/15/20 19 03/15/2019 CBC w/ auto diff MCV 90 fL 80-100 normal Not Available [facility] [address] [place] [address], [address], 03/15/2019 10:42:32 03/15/20 19 03/15/2019 CBC w/ auto diff MCH 31 pg 26-35 normal Not Available [facility] [address] [place] [address], [address], 03/15/2019 10:42:32 03/15/20 19 03/15/2019 CBC w/ auto diff MCHC 34 g/dL 32-36 normal Not Available [facility] [address] [place] [address], [address], 03/15/2019 10:42:32 03/15/20 19 03/15/2019 CBC w/ auto diff RDW 13.9 % 11.0-1 5.0 normal Not Available [facility] [address] [place] [address], [address], 03/15/2019 10:42:32 03/15/20 19 03/15/2019 CBC w/ auto diff MPV 6.8 fL 6.2-10 .5 normal Not Available [facility] [address] [place] [address], [address], 03/15/2019 10:42:32 03/15/20 19 03/15/2019 CBC w/ auto diff platelet count 268 K/uL 130-40 0 normal Not Available [facility] [address] [place] [address], [address], 03/15/2019 10:42:32 03/15/20 19 03/15/2019 CBC w/ auto diff neutrophil,a bsolute 3.5 K/uL 1.6-8. 4 normal Not Available [facility] [address] [place], [address], 03/15/2019 10:42:32 03/15/20 19 03/15/2019 CBC w/ auto diff lymphocyte,a bsolute 1.3 K/uL 0.4-5. 1 normal Not Available [facility] [address] [place] [address], [address], 03/15/2019 10:42:32 03/15/20 19 03/15/2019 CBC w/ auto diff monocyte,abs olute 0.6 K/uL 0.0-1. 2 normal Not Available [facility] [address] [place] [address], [address], 03/15/2019 10:42:32 03/15/20 19 03/15/2019 CBC w/ auto diff eosinophil,a bsolute 0.1 K/uL 0.0-0. 8 normal Not Available [facility] [address] [place] [address], [address], 03/15/2019 10:42:32 03/15/20 19 03/15/2019 CBC w/ auto diff basophil,abs olute 0.0 K/uL 0.0-0. 3 normal Not Available [facility] [address] [place] [address], [address], 03/15/2019 10:42:32 03/15/20 19 03/15/2019 CBC w/ auto diff % neutrophils 64.5 % 42.0-7 8.0 normal Not Available [facility] [address] [place] [address], [address], 03/15/2019 10:42:32 03/15/20 19 03/15/2019 CBC w/ auto diff % lymphocytes 22.8 % 11.0-4 7.0 normal Not Available [facility] [address] [place] [address], [address], 03/15/2019 10:42:32 03/15/20 19 03/15/2019 CBC w/ auto diff % monocytes 10.6 % 0.0-11 .0 normal Not Available [facility] [address] [place] [address], [address], 03/15/2019 10:42:32 03/15/20 19 03/15/2019 CBC w/ auto diff % eosinophils 1.5 % 0.0-7. 0 normal Not Available [facility] [address] [place] [address], [address], 03/15/2019 10:42:32 03/15/20 19 03/15/2019 CBC w/ auto diff % basophils 0.6 % 0.0-3. 0 normal Not Available [facility] [address] [place] [address], [address], 03/15/2019 10:42:32 03/15/20 19 03/15/2019 CBC w/ auto diff nucleated red cells 0.0 % 0.0-0. 9 normal Not Available [facility] [address] [place] [address], [address], 03/15/2019 10:42:32 03/15/20 19 03/15/2019 CBC w/ auto diff nucleated RBCs, absolute 0.00 K/uL not estab. normal Not Available [facility] [address] [place] [address], [address], 03/15/2019 10:42:32 03/20/20 20 03/20/2020 CMP, serum or plasm a glucose 121 mg/dL 74-100 high Not Available [facility] [address] [place] [address], [address], 03/20/2020 10:51:46 03/20/20 20 03/20/2020 CMP, serum or plasm a blood urea nitrogen 11 mg/dL 6-20 normal Not Available [facility] [address] [place] [address], [address], 03/20/2020 10:51:46 03/20/20 20 03/20/2020 CMP, serum or plasm a creatinine 0.80 mg/dL 0.50-0 .95 normal Not Available [facility] [address] [place] [address], [address], 03/20/2020 10:51:46 03/20/20 20 03/20/2020 CMP, serum or plasm a BUN/creatini ne ratio 14 (calc ) 10-20 normal Not Available [facility] [address] [place] [address], [address], 03/20/2020 10:51:46 03/20/20 20 03/20/2020 CMP, serum or plasm a sodium 143 mmol/ L 136-14 5 normal Not Available [facility] [address] [place] [address], [address], 03/20/2020 10:51:46 03/20/20 20 03/20/2020 CMP, serum or plasm a potassium 4.0 mmol/ L 3.4-5. 0 normal Not Available [facility] [address] [place] [address], [address], 03/20/2020 10:51:46 03/20/20 20 03/20/2020 CMP, serum or plasm a chloride 104 mmol/ L 98-107 normal Not Available [facility] [address] [place] [address], [address], 03/20/2020 10:51:46 03/20/20 20 03/20/2020 CMP, serum or plasm a carbon dioxide 29 mmol/ L 20-32 normal Not Available [facility] [address] [place] [address], [address], 03/20/2020 10:51:46 03/20/20 20 03/20/2020 CMP, serum or plasm a anion gap 10 (calc ) 7-25 normal Not Available [facility] [address] [place] [address], [address], 03/20/2020 10:51:46 03/20/20 20 03/20/2020 CMP, serum or plasm a calcium 9.3 mg/dL 8.6-10 .2 normal Not Available [facility] [address] [place], [address], 03/20/2020 10:51:46 03/20/20 20 03/20/2020 CMP, serum or plasm a total protein 6.9 g/dL 6.4-8. 3 normal Not Available [facility] [address] [place] [address], [address], 03/20/2020 10:51:46 03/20/20 20 03/20/2020 CMP, serum or plasm a albumin 4.2 g/dL 3.5-5. 2 normal Not Available [facility] [address] [place] [address], [address], 03/20/2020 10:51:46 03/20/20 20 03/20/2020 CMP, serum or plasm a globulin 2.7 g/dL_ (calc ) 1.5-4. 5 normal Not Available [facility] [address] [place] [address], [address], 03/20/2020 10:51:46 03/20/20 20 03/20/2020 CMP, serum or plasm a albumin/glob ulin ratio 1.6 (calc ) 1.1-2. 5 normal Not Available [facility] [address] [place] [address], [address], 03/20/2020 10:51:46 03/20/20 20 03/20/2020 CMP, serum or plasm a bilirubin, total 0.2 mg/dL 0.1-1. 2 normal Not Available [facility] [address] [place] [address], [address], 03/20/2020 10:51:46 03/20/20 20 03/20/2020 CMP, serum or plasm a alkaline phosphatase 83 U/L 35-105 normal Not Available [facility] [address] [place] [address], [address], 03/20/2020 10:51:46 03/20/20 20 03/20/2020 CMP, serum or plasm a AST 13 U/L 0-32 normal Not Available [facility] [address] [place] [address], [address], 03/20/2020 10:51:46 03/20/20 20 03/20/2020 CMP, serum or plasm a ALT 17 U/L 0-33 normal Not Available [facility] [address] [place] [address], [address], 03/20/2020 10:51:46 03/20/20 20 03/20/2020 CMP, serum or plasm a GFR 88 >= 60 normal Not Available [facility] [address] [place] [address], [address], 03/20/2020 10:51:46 03/20/20 20 03/20/2020 CMP, serum or plasm a GFR non- 76 >= 60 normal NOT E NEW calcu latio n for GFR is based on the Natio nal Kidne y Found ation CKD-E PI equat ion and allow s for repor ting GFR value s great er than 60 mL/mi n/1.7 3 m2. This calcu latio n has not been valid ated for patie nts less than 18 yrs., pregn ant women and Hispa nics. Chron ic kidne y disea se is defin ed as kidne y damag e or GFR less than 60 mL/mi n/1.7 3 m2 for 3 month s or longe r. Not Available [facility] [address] [place] [address], [address], 03/20/2020 10:51:46 03/20/20 20 03/20/2020 CBC w/ auto diff white blood cells 5.9 K/uL 3.8-10 .8 normal Not Available [facility] [address] [place] [address], [address], 03/20/2020 10:31:30 03/20/20 20 03/20/2020 CBC w/ auto diff red blood cells 4.90 M/uL 3.80-5 .20 normal Not Available [facility] [address] [place], [address], 03/20/2020 10:31:30 03/20/20 20 03/20/2020 CBC w/ auto diff hemoglobin 14.6 g/dL 12.0-1 6.0 normal Not Available [facility] [address] [place] [address], [address], 03/20/2020 10:31:30 03/20/20 20 03/20/2020 CBC w/ auto diff hematocrit 44.1 % 35.0-4 7.0 normal Not Available [facility] [address] [place] [address], [address], 03/20/2020 10:31:30 03/20/20 20 03/20/2020 CBC w/ auto diff MCV 90 fL 80-100 normal Not Available [facility] [address] [place] [address], [address], 03/20/2020 10:31:30 03/20/20 20 03/20/2020 CBC w/ auto diff MCH 30 pg 26-35 normal Not Available [facility] [address] [place] [address], [address], 03/20/2020 10:31:30 03/20/20 20 03/20/2020 CBC w/ auto diff MCHC 33 g/dL 32-36 normal Not Available [facility] [address] [place] [address], [address], 03/20/2020 10:31:30 03/20/20 20 03/20/2020 CBC w/ auto diff RDW 14.6 % 11.0-1 5.0 normal Not Available [facility] [address] [place] [address], [address], 03/20/2020 10:31:30 03/20/20 20 03/20/2020 CBC w/ auto diff MPV 7.5 fL 6.2-10 .5 normal Not Available [facility] [address] [place] [address], [address], 03/20/2020 10:31:30 03/20/20 20 03/20/2020 CBC w/ auto diff platelet count 320 K/uL 130-40 0 normal Not Available [facility] [address] [place] [address], [address], 03/20/2020 10:31:30 03/20/20 20 03/20/2020 CBC w/ auto diff neutrophil,a bsolute 3.3 K/uL 1.6-8. 4 normal Not Available [facility] [address] [place] [address], [address], 03/20/2020 10:31:30 03/20/20 20 03/20/2020 CBC w/ auto diff lymphocyte,a bsolute 1.7 K/uL 0.4-5. 1 normal Not Available [facility] [address] [place] [address], [address], 03/20/2020 10:31:30 03/20/20 20 03/20/2020 CBC w/ auto diff monocyte,abs olute 0.7 K/uL 0.0-1. 2 normal Not Available [facility] [address] [place] [address], [address], 03/20/2020 10:31:30 03/20/20 20 03/20/2020 CBC w/ auto diff eosinophil,a bsolute 0.1 K/uL 0.0-0. 8 normal Not Available [facility] [address] [place] [address], [address], 03/20/2020 10:31:30 03/20/20 20 03/20/2020 CBC w/ auto diff basophil,abs olute 0.0 K/uL 0.0-0. 3 normal Not Available [facility] [address] [place] [address], [address], 03/20/2020 10:31:30 03/20/20 20 03/20/2020 CBC w/ auto diff % neutrophils 56.5 % 42.0-7 8.0 normal Not Available [facility] [address] [place] [address], [address], 03/20/2020 10:31:30 03/20/20 20 03/20/2020 CBC w/ auto diff % lymphocytes 29.2 % 11.0-4 7.0 normal Not Available [facility] [address] [place] [address], [address], 03/20/2020 10:31:30 03/20/20 20 03/20/2020 CBC w/ auto diff % monocytes 11.4 % 0.0-11 .0 high Not Available [facility] [address] [place] [address], [address], 03/20/2020 10:31:30 03/20/20 20 03/20/2020 CBC w/ auto diff % eosinophils 2.4 % 0.0-7. 0 normal Not Available [facility] [address] [place] [address], [address], 03/20/2020 10:31:30 03/20/20 20 03/20/2020 CBC w/ auto diff % basophils 0.5 % 0.0-3. 0 normal Not Available [facility] [address] [place] [address], [address], 03/20/2020 10:31:30 03/20/20 20 03/20/2020 CBC w/ auto diff nucleated red cells 0.0 % 0.0-0. 9 normal Not Available [facility] [address] [place] [address], [address], 03/20/2020 10:31:30 03/20/20 20 03/20/2020 CBC w/ auto diff nucleated RBCs, absolute 0.00 K/uL not estab. normal Not Available [facility] [address] [place] [address], [address], 03/20/2020 10:31:30 05/05/19 22 05/05/2021 COMP. METAB OLIC PANEL glucose 98 mg/dL 74-100 normal Not Available [facility] [address] [place] [address], [address], 05/05/2021 11:23:14 05/05/19 22 05/05/2021 COMP. METAB OLIC PANEL blood urea nitrogen 15 mg/dL 6-20 normal Not Available [facility] [address] [place] [address], [address], 05/05/2021 11:23:14 05/05/19 22 05/05/2021 COMP. METAB OLIC PANEL creatinine 0.86 mg/dL 0.50-0 .95 normal Not Available [facility] [address] [place] [address], [address], 05/05/2021 11:23:14 05/05/19 22 05/05/2021 COMP. METAB OLIC PANEL BUN/creatini ne ratio 17 (calc ) 10-20 normal Not Available [facility] [address] [place] [address], [address], 05/05/2021 11:23:14 05/05/19 22 05/05/2021 COMP. METAB OLIC PANEL sodium 146 mmol/ L 136-14 5 high Not Available [facility] [address] [place] [address], [address], 05/05/2021 11:23:14 05/05/19 22 05/05/2021 COMP. METAB OLIC PANEL potassium 4.1 mmol/ L 3.4-5. 0 normal Not Available [facility] [address] [place] [address], [address], 05/05/2021 11:23:14 05/05/19 22 05/05/2021 COMP. METAB OLIC PANEL chloride 106 mmol/ L 98-107 normal Not Available [facility] [address] [place] [address], [address], 05/05/2021 11:23:14 05/05/19 22 05/05/2021 COMP. METAB OLIC PANEL carbon dioxide 29 mmol/ L 22-31 normal Not Available [facility] [address] [place] [address], [address], 05/05/2021 11:23:14 05/05/19 22 05/05/2021 COMP. METAB OLIC PANEL anion gap 11 (calc ) 7-25 normal Not Available [facility] [address] [place] [address], [address], 05/05/2021 11:23:14 05/05/19 22 05/05/2021 COMP. METAB OLIC PANEL calcium 9.6 mg/dL 8.6-10 .2 normal Not Available [facility] [address] [place] [address], [address], 05/05/2021 11:23:14 05/05/19 22 05/05/2021 COMP. METAB OLIC PANEL total protein 6.1 g/dL 6.4-8. 3 low Not Available [facility] [address] [place] [address], [address], 05/05/2021 11:23:14 05/05/19 22 05/05/2021 COMP. METAB OLIC PANEL albumin 4.3 g/dL 3.5-5. 2 normal Not Available [facility] [address] [place] [address], [address], 05/05/2021 11:23:14 05/05/19 22 05/05/2021 COMP. METAB OLIC PANEL globulin 1.8 g/dL_ (calc ) 1.5-4. 5 normal Not Available [facility] [address] [place] [address], [address], 05/05/2021 11:23:14 05/05/19 22 05/05/2021 COMP. METAB OLIC PANEL albumin/glob ulin ratio 2.4 (calc ) 1.1-2. 5 normal Not Available [facility] [address] [place] [address], [address], 05/05/2021 11:23:14 05/05/19 22 05/05/2021 COMP. METAB OLIC PANEL bilirubin, total 0.2 mg/dL 0.1-1. 2 normal Not Available [facility] [address] [place] [address], [address], 05/05/2021 11:23:14 05/05/19 22 05/05/2021 COMP. METAB OLIC PANEL alkaline phosphatase 80 U/L 30-121 normal Not Available [facility] [address] [place] [address], [address], 05/05/2021 11:23:14 05/05/19 22 05/05/2021 COMP. METAB OLIC PANEL AST 13 U/L 0-32 normal Not Available [facility] [address] [place] [address], [address], 05/05/2021 11:23:14 05/05/19 22 05/05/2021 COMP. METAB OLIC PANEL ALT 12 U/L 0-33 normal Not Available [facility] [address] [place] [address], [address], 05/05/2021 11:23:14 05/05/19 22 05/05/2021 COMP. METAB OLIC PANEL GFR 80 >= 60 normal Not Available [facility] [address] [place] [address], [address], 05/05/2021 11:23:14 05/05/19 22 05/05/2021 COMP. METAB OLIC PANEL GFR non- 69 >= 60 normal NOT E Chron ic kidne y disea se is defin ed as kidne y damag e for more than 3 month s or a GFR less than 60 mL/mi n/1.7 3 m2 for great er than 3 month s. This calcu latio n has not been valid ated in pregn ant women . For pedia tric patie nts refer to Pamela chino Kidne y Found ation [email or web address] :[email or web address] [email or web address] rg/pr ofess ional s/KDO QI/gf r_cal culat orPed Not Available [facility] [address] [place] [address], [address], 05/05/2021 11:23:14 05/05/19 22 05/05/2021 COMPL ETE BLOOD COUNT white blood cells 6.1 K/uL 3.8-10 .8 normal Not Available [facility] [address] [place] [address], [address], 05/05/2021 10:32:29 05/05/19 22 05/05/2021 COMPL ETE BLOOD COUNT red blood cells 4.75 M/uL 3.80-5 .20 normal Not Available [facility] [address] [place] [address], [address], 05/05/2021 10:32:29 05/05/19 22 05/05/2021 COMPL ETE BLOOD COUNT hemoglobin 13.9 g/dL 12.0-1 6.0 normal Not Available [facility] [address] [place] [address], [address], 05/05/2021 10:32:29 05/05/19 22 05/05/2021 COMPL ETE BLOOD COUNT hematocrit 42.5 % 35.0-4 7.0 normal Not Available [facility] [address] [place] [address], [address], 05/05/2021 10:32:29 05/05/19 22 05/05/2021 COMPL ETE BLOOD COUNT MCV 90 fL 80-100 normal Not Available [facility] [address] [place] [address], [address], 05/05/2021 10:32:29 05/05/19 22 05/05/2021 COMPL ETE BLOOD COUNT MCH 29 pg 26-35 normal Not Available [facility] [address] [place] [address], [address], 05/05/2021 10:32:29 05/05/19 22 05/05/2021 COMPL ETE BLOOD COUNT MCHC 33 g/dL 32-36 normal Not Available [facility] [address] [place] [address], [address], 05/05/2021 10:32:29 05/05/19 22 05/05/2021 COMPL ETE BLOOD COUNT RDW 14.5 % 11.0-1 5.0 normal Not Available [facility] [address] [place] [address], [address], 05/05/2021 10:32:29 05/05/19 22 05/05/2021 COMPL ETE BLOOD COUNT MPV 7.2 fL 6.2-10 .5 normal Not Available [facility] [address] [place] [address], [address], 05/05/2021 10:32:29 05/05/19 22 05/05/2021 COMPL ETE BLOOD COUNT platelet count 268 K/uL 130-40 0 normal Not Available [facility] [address] [place] [address], [address], 05/05/2021 10:32:29 05/05/19 22 05/05/2021 COMPL ETE BLOOD COUNT neutrophil,a bsolute 3.6 K/uL 1.6-8. 4 normal Not Available [facility] [address] [place] [address], [address], 05/05/2021 10:32:29 05/05/19 22 05/05/2021 COMPL ETE BLOOD COUNT lymphocyte,a bsolute 1.7 K/uL 0.4-5. 1 normal Not Available [facility] [address] [place] [address], [address], 05/05/2021 10:32:29 05/05/19 22 05/05/2021 COMPL ETE BLOOD COUNT monocyte,abs olute 0.7 K/uL 0.0-1. 2 normal Not Available [facility] [address] [place] [address], [address], 05/05/2021 10:32:29 05/05/19 22 05/05/2021 COMPL ETE BLOOD COUNT eosinophil,a bsolute 0.1 K/uL 0.0-0. 8 normal Not Available [facility] [address] [place] [address], [address], 05/05/2021 10:32:29 05/05/19 22 05/05/2021 COMPL ETE BLOOD COUNT basophil,abs olute 0.0 K/uL 0.0-0. 3 normal Not Available [facility] [address] [place] [address], [address], 05/05/2021 10:32:29 05/05/19 22 05/05/2021 COMPL ETE BLOOD COUNT % neutrophils 58.8 % 42.0-7 8.0 normal Not Available [facility] [address] [place] [address], [address], 05/05/2021 10:32:29 05/05/19 22 05/05/2021 COMPL ETE BLOOD COUNT % lymphocytes 27.9 % 11.0-4 7.0 normal Not Available [facility] [address] [place] [address], [address], 05/05/2021 10:32:29 05/05/19 22 05/05/2021 COMPL ETE BLOOD COUNT % monocytes 10.8 % 0.0-11 .0 normal Not Available [facility] [address] [place] [address], [address], 05/05/2021 10:32:29 05/05/19 22 05/05/2021 COMPL ETE BLOOD COUNT % eosinophils 1.9 % 0.0-7. 0 normal Not Available [facility] [address] [place] [address], [address], 05/05/2021 10:32:29 05/05/19 22 05/05/2021 COMPL ETE BLOOD COUNT % basophils 0.6 % 0.0-3. 0 normal Not Available [facility] [address] [place] [address], [address], 05/05/2021 10:32:29 05/05/19 22 05/05/2021 COMPL ETE BLOOD COUNT nucleated red cells 0.0 % 0.0-0. 9 normal Not Available [facility] [address] [place] [address], [address], 05/05/2021 10:32:29 05/05/19 22 05/05/2021 COMPL ETE BLOOD COUNT nucleated RBCs, absolute 0.00 K/uL not estab. normal Not Available [facility] [address] [place] [address], [address], 05/05/2021 10:32:29 06/09/19 23 06/08/2022 COMP. METAB OLIC PANEL glucose 127 mg/dL 74-100 high Not Available [facility] [address] [place] [address], [address], 06/08/2022 11:49:27 06/09/19 23 06/08/2022 COMP. METAB OLIC PANEL blood urea nitrogen 11 mg/dL 6-20 normal Not Available [facility] [address] [place] [address], [address], 06/08/2022 11:49:27 06/09/19 23 06/08/2022 COMP. METAB OLIC PANEL creatinine 0.80 mg/dL 0.50-0 .95 normal Not Available [facility] [address] [place] [address], [address], 06/08/2022 11:49:27 06/09/19 23 06/08/2022 COMP. METAB OLIC PANEL BUN/creatini ne ratio 14 (calc ) 10-20 normal Not Available [facility] [address] [place] [address], [address], 06/08/2022 11:49:27 06/09/19 23 06/08/2022 COMP. METAB OLIC PANEL sodium 142 mmol/ L 136-14 5 normal Not Available [facility] [address] [place] [address], [address], 06/08/2022 11:49:27 06/09/19 23 06/08/2022 COMP. METAB OLIC PANEL potassium 4.1 mmol/ L 3.4-5. 0 normal Not Available [facility] [address] [place] [address], [address], 06/08/2022 11:49:27 06/09/19 23 06/08/2022 COMP. METAB OLIC PANEL chloride 104 mmol/ L 98-107 normal Not Available [facility] [address] [place] [address], [address], 06/08/2022 11:49:27 06/09/19 23 06/08/2022 COMP. METAB OLIC PANEL carbon dioxide 27 mmol/ L 22-31 normal Not Available [facility] [address] [place] [address], [address], 06/08/2022 11:49:27 06/09/19 23 06/08/2022 COMP. METAB OLIC PANEL anion gap 11 (calc ) 7-25 normal Not Available [facility] [address] [place] [address], [address], 06/08/2022 11:49:27 06/09/19 23 06/08/2022 COMP. METAB OLIC PANEL calcium 9.8 mg/dL 8.6-10 .2 normal Not Available [facility] [address] [place] [address], [address], 06/08/2022 11:49:27 06/09/19 23 06/08/2022 COMP. METAB OLIC PANEL total protein 7.2 g/dL 6.4-8. 3 normal Not Available [facility] [address] [place] [address], [address], 06/08/2022 11:49:27 06/09/19 23 06/08/2022 COMP. METAB OLIC PANEL albumin 4.1 g/dL 3.5-5. 2 normal Not Available [facility] [address] [place] [address], [address], 06/08/2022 11:49:27 06/09/19 23 06/08/2022 COMP. METAB OLIC PANEL globulin 3.1 g/dL_ (calc ) 1.5-4. 5 normal Not Available [facility] [address] [place] [address], [address], 06/08/2022 11:49:27 06/09/19 23 06/08/2022 COMP. METAB OLIC PANEL albumin/glob ulin ratio 1.3 (calc ) 1.1-2. 5 normal Not Available [facility] [address] [place] [address], [address], 06/08/2022 11:49:27 06/09/19 23 06/08/2022 COMP. METAB OLIC PANEL bilirubin, total 0.3 mg/dL 0.1-1. 2 normal Not Available [facility] [address] [place] [address], [address], 06/08/2022 11:49:27 06/09/19 23 06/08/2022 COMP. METAB OLIC PANEL alkaline phosphatase 78 U/L 30-121 normal Not Available [facility] [address] [place] [address], [address], 06/08/2022 11:49:27 06/09/19 23 06/08/2022 COMP. METAB OLIC PANEL AST 15 U/L 0-32 normal Not Available [facility] [address] [place] [address], [address], 06/08/2022 11:49:27 06/09/19 23 06/08/2022 COMP. METAB OLIC PANEL ALT 14 U/L 0-33 normal Not Available [facility] [address] [place] [address], [address], 06/08/2022 11:49:27 06/09/19 23 06/08/2022 COMP. METAB OLIC PANEL GFR 79 >= 60 normal NOT E New calcu latio n for GFR (CKD- EPI 2020) is formu lated witho ut race adjus tment facto rs at the recom menda tion of the Pamela roche and [facility] Lisa ty of Nephr ology . This calcu latio n has not been valid ated in pregn ant women . For pedia tric patie nts refer to https ://ju carroll.o rg/pr mikkiess ional s/KDO QI/gf r_cal culat orPed Not Available [facility] [address] [place] [address], [address], 06/08/2022 11:49:27 06/09/19 23 06/08/2022 COMPL ETE BLOOD COUNT white blood cells 7.1 K/uL 3.8-10 .8 normal Not Available [facility] [address] [place] [address], [address], 06/08/2022 11:21:19 06/09/19 23 06/08/2022 COMPL ETE BLOOD COUNT red blood cells 4.49 M/uL 3.80-5 .20 normal Not Available [facility] [address] [place] [address], [address], 06/08/2022 11:21:19 06/09/19 23 06/08/2022 COMPL ETE BLOOD COUNT hemoglobin 13.5 g/dL 12.0-1 6.0 normal Not Available [facility] [address] [place] [address], [address], 06/08/2022 11:21:19 06/09/19 23 06/08/2022 COMPL ETE BLOOD COUNT hematocrit 40.2 % 35.0-4 7.0 normal Not Available [facility] [address] [place] [address], [address], 06/08/2022 11:21:19 06/09/19 23 06/08/2022 COMPL ETE BLOOD COUNT MCV 90 fL 80-100 normal Not Available [facility] [address] [place] [address], [address], 06/08/2022 11:21:19 06/09/19 23 06/08/2022 COMPL ETE BLOOD COUNT MCH 30 pg 26-35 normal Not Available [facility] [address] [place] [address], [address], 06/08/2022 11:21:19 06/09/19 23 06/08/2022 COMPL ETE BLOOD COUNT MCHC 34 g/dL 32-36 normal Not Available [facility] [address] [place] [address], [address], 06/08/2022 11:21:19 06/09/19 23 06/08/2022 COMPL ETE BLOOD COUNT RDW 14.8 % 11.0-1 5.0 normal Not Available [facility] [address] [place] [address], [address], 06/08/2022 11:21:19 06/09/19 23 06/08/2022 COMPL ETE BLOOD COUNT MPV 6.8 fL 6.2-10 .5 normal Not Available [facility] [address] [place] [address], [address], 06/08/2022 11:21:19 06/09/19 23 06/08/2022 COMPL ETE BLOOD COUNT platelet count 311 K/uL 130-40 0 normal Not Available [facility] [address] [place] [address], [address], 06/08/2022 11:21:19 06/09/19 23 06/08/2022 COMPL ETE BLOOD COUNT neutrophil,a bsolute 5.0 K/uL 1.6-8. 4 normal Not Available [facility] [address] [place] [address], [address], 06/08/2022 11:21:19 06/09/19 23 06/08/2022 COMPL ETE BLOOD COUNT lymphocyte,a bsolute 1.4 K/uL 0.4-5. 1 normal Not Available [facility] [address] [place] [address], [address], 06/08/2022 11:21:19 06/09/19 23 06/08/2022 COMPL ETE BLOOD COUNT monocyte,abs olute 0.5 K/uL 0.0-1. 2 normal Not Available [facility] [address] [place] [address], [address], 06/08/2022 11:21:19 06/09/19 23 06/08/2022 COMPL ETE BLOOD COUNT eosinophil,a bsolute 0.1 K/uL 0.0-0. 8 normal Not Available [facility] [address] [place] [address], [address], 06/08/2022 11:21:19 06/09/19 23 06/08/2022 COMPL ETE BLOOD COUNT basophil,abs olute 0.0 K/uL 0.0-0. 3 normal Not Available [facility] [address] [place] [address], [address], 06/08/2022 11:21:19 06/09/19 23 06/08/2022 COMPL ETE BLOOD COUNT % neutrophils 71.5 % 42.0-7 8.0 normal Not Available [facility] [address] [place] [address], [address], 06/08/2022 11:21:19 06/09/19 23 06/08/2022 COMPL ETE BLOOD COUNT % lymphocytes 19.3 % 11.0-4 7.0 normal Not Available [facility] [address] [place] [address], [address], 06/08/2022 11:21:19 06/09/19 23 06/08/2022 COMPL ETE BLOOD COUNT % monocytes 7.5 % 0.0-11 .0 normal Not Available [facility] [address] [place] [address], [address], 06/08/2022 11:21:19 06/09/19 23 06/08/2022 COMPL ETE BLOOD COUNT % eosinophils 1.1 % 0.0-7. 0 normal Not Available [facility] [address] [place] [address], [address], 06/08/2022 11:21:19 06/09/19 23 06/08/2022 COMPL ETE BLOOD COUNT % basophils 0.6 % 0.0-3. 0 normal Not Available [facility] [address] [place] [address], [address], 06/08/2022 11:21:19 06/09/19 23 06/08/2022 COMPL ETE BLOOD COUNT nucleated red cells 0.1 % 0.0-0. 9 normal Not Available [facility] [address] [place] [address], [address], 06/08/2022 11:21:19 06/09/19 23 06/08/2022 COMPL ETE BLOOD COUNT nucleated RBCs, absolute 0.01 K/uL not estab. normal Not Available [facility] [address] [place] [address], [address], 06/08/2022 11:21:19 07/30/19 23 07/29/2022 urina lysis panel , auto Unknown Analyte Clean Catch Not Available [facility] [address], [place], [address], 07/29/2022 14:19:00 07/30/19 23 07/29/2022 urina lysis panel , auto Unknown Analyte Yellow Not Available [facility] [address] [address], [place], [address], 07/29/2022 14:19:00 07/30/19 23 07/29/2022 urina lysis panel , auto Unknown Analyte Clear Not Available [facility] [address], [place], [address], 07/29/2022 14:19:00 07/30/19 23 07/29/2022 urina lysis panel , auto Unknown Analyte 1.020 Not Available [facility] [address] [place] [address] Rd [address], [place], [address], 07/29/2022 14:19:00 07/30/19 23 07/29/2022 urina lysis panel , auto Unknown Analyte 1.003- 1.035 Not Available [facility] [address], [place], [address], 07/29/2022 14:19:00 07/30/19 23 07/29/2022 urina lysis panel , auto Unknown Analyte 5.0 Not Available [facility] [address], [place], [address], 07/29/2022 14:19:00 07/30/19 23 07/29/2022 urina lysis panel , auto Unknown Analyte 5.0-8. 0 Not Available [facility] [address], [place], [address], 07/29/2022 14:19:00 07/30/19 23 07/29/2022 urina lysis panel , auto Unknown Analyte 25 Wayne/ul Trace Not Available [facility] [address], [place], [address], 07/29/2022 14:19:00 07/30/19 23 07/29/2022 urina lysis panel , auto Unknown Analyte Negati ve Not Available [facility] [address], [place], [address], 07/29/2022 14:19:00 07/30/19 23 07/29/2022 urina lysis panel , auto Unknown Analyte Negati ve Not Available [facility] [address], [place], [address], 07/29/2022 14:19:00 07/30/19 23 07/29/2022 urina lysis panel , auto Unknown Analyte Negati ve Not Available [facility] [address], [place], [address], 07/29/2022 14:19:00 07/30/19 23 07/29/2022 urina lysis panel , auto Unknown Analyte Trace Not Available [facility] [address], [place], [address], 07/29/2022 14:19:00 07/30/19 23 07/29/2022 urina lysis panel , auto Unknown Analyte Negati ve Not Available [facility] [address], [place], [address], 07/29/2022 14:19:00 07/30/19 23 07/29/2022 urina lysis panel , auto Unknown Analyte Normal Not Available [facility] [address], [place], [address], 07/29/2022 14:19:00 07/30/19 23 07/29/2022 urina lysis panel , auto Unknown Analyte Normal Not Available [facility] [address], [place], [address], 07/29/2022 14:19:00 07/30/19 23 07/29/2022 urina lysis panel , auto Unknown Analyte 15 mg/dl (Sm) Not Available [facility] [address], [place], [address], 07/29/2022 14:19:00 07/30/19 23 07/29/2022 urina lysis panel , auto Unknown Analyte Negati ve Not Available [facility] [address], [place], [address], 07/29/2022 14:19:00 07/30/19 23 07/29/2022 urina lysis panel , auto Unknown Analyte Normal Not Available [facility] [address], [place], [address], 07/29/2022 14:19:00 07/30/19 23 07/29/2022 urina lysis panel , auto Unknown Analyte Normal 1 mg/dl Not Available [facility] [address], [place], [address], 07/29/2022 14:19:00 07/30/19 23 07/29/2022 urina lysis panel , auto Unknown Analyte Negati ve Not Available [facility] [address], [place], [address], 07/29/2022 14:19:00 07/30/19 23 07/29/2022 urina lysis panel , auto Unknown Analyte Negati ve Not Available [facility] [address], [place], [address], 07/29/2022 14:19:00 07/30/19 23 07/29/2022 urina lysis panel , auto Unknown Analyte Negati ve Not Available [facility] [address] [facility] [address], [place], [address], 07/29/2022 14:19:00 07/30/19 23 07/29/2022 urina lysis panel , auto Unknown Analyte Negati ve Not Available [facility] [address] [facility] [address], [place], [address], 07/29/2022 14:19:00 11/08/19 23 11/10/2022 URINE CULTU RE urine culture abnormal COLON Y COUNT : 10,00 0 - 100,0 00 CFU/M L Three or more isola abigail; mixed skin kyle . ISOLA TE #1 COLON Y COUNT : 1,000 CFU/M L Proba ble Gram Negat maria elena Bacil rj; In Progr ess. See Amity te Resul t(s) Below Esche allyssa a coli Not Available [facility] [address] [place] [address], [address], 11/10/2022 11:33:00 11/08/19 23 11/07/2022 BACTE RIAL SUSCE PTIBI LITY PANEL BY ED results Organ ism: Esche allyssa a coli Not Available [facility] [address] [place] [address], [address], 11/10/2022 11:33:00 11/08/19 23 11/10/2022 BACTE RIAL SUSCE PTIBI LITY PANEL BY ED amox/K clav'ate(C) <=8/4 ug/mL susceptib le Not Available [facility] [address] [place] [address], [address], 11/10/2022 11:33:00 11/08/19 23 11/10/2022 BACTE RIAL SUSCE PTIBI LITY PANEL BY ED ampicillin <=8 ug/mL susceptib le Not Available [facility] [address] [place] [address], [address], 11/10/2022 11:33:00 11/08/19 23 11/10/2022 BACTE RIAL SUSCE PTIBI LITY PANEL BY ED cefazolin <=2 ug/mL susceptib le Not Available [facility] [address] [place] [address], [address], 11/10/2022 11:33:00 11/08/19 23 11/10/2022 BACTE RIAL SUSCE PTIBI LITY PANEL BY ED ceftazidime <=1 ug/mL susceptib le Not Available [facility] [address] [place] [address], [address], 11/10/2022 11:33:00 11/08/19 23 11/10/2022 BACTE RIAL SUSCE PTIBI LITY PANEL BY ED ceftriaxone <=1 ug/mL susceptib le Not Available [facility] [address] [place] [address], [address], 11/10/2022 11:33:00 11/08/19 23 11/10/2022 BACTE RIAL SUSCE PTIBI LITY PANEL BY ED cefuroxime 8 ug/mL susceptib le Not Available [facility] [address] [place] [address], [address], 11/10/2022 11:33:00 11/08/19 23 11/10/2022 BACTE RIAL SUSCE PTIBI LITY PANEL BY ED ciprofloxaci n <=0.25 ug/mL susceptib le Not Available [facility] [address] [place] [address], [address], 11/10/2022 11:33:00 11/08/19 23 11/10/2022 BACTE RIAL SUSCE PTIBI LITY PANEL BY ED gentamicin <=4 ug/mL susceptib le Not Available [facility] [address] [place] [address], [address], 11/10/2022 11:33:00 11/08/19 23 11/10/2022 BACTE RIAL SUSCE PTIBI LITY PANEL BY ED imipenem <=1 ug/mL susceptib le Not Available [facility] [address] [place] [address], [address], 11/10/2022 11:33:00 11/08/19 23 11/10/2022 BACTE RIAL SUSCE PTIBI LITY PANEL BY ED levofloxacin <=0.5 ug/mL susceptib le Not Available [address], [address], 11/10/2022 11:33:00 11/08/19 23 11/10/2022 BACTE RIAL SUSCE PTIBI LITY PANEL BY ED nitrofuranto in <=32 ug/mL susceptib le Not Available [facility] [address] [place] [address], [address], 11/10/2022 11:33:00 11/08/19 23 11/10/2022 BACTE RIAL SUSCE PTIBI LITY PANEL BY ED piperacillin /bindu <=16 ug/mL susceptib le Not Available [facility] [address] [place] [address], [address], 11/10/2022 11:33:00 11/08/19 23 11/10/2022 BACTE RIAL SUSCE PTIBI LITY PANEL BY ED tetracycline >8 ug/mL resistant Not Available [address], [address], 11/10/2022 11:33:00 11/08/19 23 11/10/2022 BACTE RIAL SUSCE PTIBI LITY PANEL BY ED tobramycin <=2 ug/mL susceptib le Not Available [address], [address], 11/10/2022 11:33:00 11/08/19 23 11/10/2022 BACTE RIAL SUSCE PTIBI LITY PANEL BY ED trimeth/sulf a <=2/38 ug/mL susceptib le Not Available [facility] [address] [facility], [place], [address], 11/10/2022 11:33:00 11/08/19 23 11/07/2022 urina lysis panel , auto Unknown Analyte Clean Catch Not Available [facility] [address], [place], [address], 11/07/2022 12:04:00 11/08/19 23 11/07/2022 urina lysis panel , auto Unknown Analyte Yellow Not Available [facility] [address], [place], [address], 11/07/2022 12:04:00 11/08/19 23 11/07/2022 urina lysis panel , auto Unknown Analyte Slight ly Hazy Not Available [facility] [address], [place], [address], 11/07/2022 12:04:00 11/08/19 23 11/07/2022 urina lysis panel , auto Unknown Analyte 1.010 Not Available [facility] [address], [place], [address], 11/07/2022 12:04:00 11/08/19 23 11/07/2022 urina lysis panel , auto Unknown Analyte 1.003- 1.035 Not Available [facility] [address], [place], [address], 11/07/2022 12:04:00 11/08/19 23 11/07/2022 urina lysis panel , auto Unknown Analyte 6.0 Not Available [facility] [address], [place], [address], 11/07/2022 12:04:00 11/08/19 23 11/07/2022 urina lysis panel , auto Unknown Analyte 5.0-8. 0 Not Available [facility] [address], [place], [address], 11/07/2022 12:04:00 11/08/19 23 11/07/2022 urina lysis panel , auto Unknown Analyte 75 Wayne/ul (+) Not Available [facility] [address], [place], [address], 11/07/2022 12:04:00 11/08/19 23 11/07/2022 urina lysis panel , auto Unknown Analyte Negati ve Not Available [facility] [address], [place], [address], 11/07/2022 12:04:00 11/08/19 23 11/07/2022 urina lysis panel , auto Unknown Analyte Negati ve Not Available [facility] [address], [place], [address], 11/07/2022 12:04:00 11/08/19 23 11/07/2022 urina lysis panel , auto Unknown Analyte Negati ve Not Available [facility] [address], [place], [address], 11/07/2022 12:04:00 11/08/19 23 11/07/2022 urina lysis panel , auto Unknown Analyte Negati ve Not Available [facility] [address], [place], [address], 11/07/2022 12:04:00 11/08/19 23 11/07/2022 urina lysis panel , auto Unknown Analyte Negati ve Not Available [facility] [address], [place], [address], 11/07/2022 12:04:00 11/08/19 23 11/07/2022 urina lysis panel , auto Unknown Analyte Normal Not Available [facility] [address], [place], [address], 11/07/2022 12:04:00 11/08/19 23 11/07/2022 urina lysis panel , auto Unknown Analyte Normal Not Available [facility] [address], [place], [address], 11/07/2022 12:04:00 11/08/19 23 11/07/2022 urina lysis panel , auto Unknown Analyte 15 mg/dl (Sm) Not Available [facility] [address], [place], [address], 11/07/2022 12:04:00 11/08/1911/07/2022 urina lysis panel , auto Unknown Analyte Negati ve Not Available [facility] [address], [place], [address], 11/07/2022 12:04:00 11/08/19 23 11/07/2022 urina lysis panel , auto Unknown Analyte Normal Not Available [facility] [address], [place], [address], 11/07/2022 12:04:00 11/08/19 23 11/07/2022 urina lysis panel , auto Unknown Analyte Normal 1 mg/dl Not Available [facility] [address], [place], [address], 11/07/2022 12:04:00 11/08/1911/07/2022 urina lysis panel , auto Unknown Analyte Negati ve Not Available [facility] [address], [place], [address], 11/07/2022 12:04:00 11/08/19 23 11/07/2022 urina lysis panel , auto Unknown Analyte Negati ve Not Available [facility] [address], [place], [address], 11/07/2022 12:04:00 11/08/1911/07/2022 urina lysis panel , auto Unknown Analyte Negati ve Not Available [facility] [address], [place], [address], 11/07/2022 12:04:00 11/08/1911/07/2022 urina lysis panel , auto Unknown Analyte Negati ve Not Available [facility] [address], [place], [address], 11/07/2022 12:04:00 06/14/19 24 06/14/2023 COMP. METAB OLIC PANEL glucose 119 mg/dL 74-100 high Not Available [facility] [address] [place] [address], [address], 06/14/2023 10:15:25 06/14/19 24 06/14/2023 COMP. METAB OLIC PANEL blood urea nitrogen 13 mg/dL 6-20 normal Not Available [facility] [address] [place] [address], [address], 06/14/2023 10:15:25 06/14/19 24 06/14/2023 COMP. METAB OLIC PANEL creatinine 0.82 mg/dL 0.50-0 .95 normal Not Available [facility] [address] [place] [address], [address], 06/14/2023 10:15:25 06/14/19 24 06/14/2023 COMP. METAB OLIC PANEL BUN/creatini ne ratio 16 (calc ) 10-20 normal Not Available [facility] [address] [place] [address], [address], 06/14/2023 10:15:25 06/14/19 24 06/14/2023 COMP. METAB OLIC PANEL sodium 146 mmol/ L 136-14 5 high Not Available [facility] [address] [place] [address], [address], 06/14/2023 10:15:25 06/14/19 24 06/14/2023 COMP. METAB OLIC PANEL potassium 3.9 mmol/ L 3.4-5. 0 normal Not Available [facility] [address] [place] [address], [address], 06/14/2023 10:15:25 06/14/19 24 06/14/2023 COMP. METAB OLIC PANEL chloride 108 mmol/ L 98-107 high Not Available [facility] [address] [place] [address], [address], 06/14/2023 10:15:25 06/14/19 24 06/14/2023 COMP. METAB OLIC PANEL carbon dioxide 27 mmol/ L 22-31 normal Not Available [facility] [address] [place], [place] [address], [phone], 06/14/2023 10:15:25 06/14/19 24 06/14/2023 COMP. METAB OLIC PANEL anion gap 11 (calc ) 7-25 normal Not Available [facility] [address] [place] [address], [phone], 06/14/2023 10:15:25 06/14/19 24 06/14/2023 COMP. METAB OLIC PANEL calcium 8.9 mg/dL 8.6-10 .2 normal Not Available [facility] [address] [place] [address], [phone], 06/14/2023 10:15:25 06/14/19 24 06/14/2023 COMP. METAB OLIC PANEL total protein 6.4 g/dL 6.4-8. 3 normal Not Available [facility] [address] [place] [address], [phone], 06/14/2023 10:15:25 06/14/19 24 06/14/2023 COMP. METAB OLIC PANEL albumin 3.8 g/dL 3.5-5. 2 normal Not Available [facility] [address] [place] [address], [phone], 06/14/2023 10:15:25 06/14/19 24 06/14/2023 COMP. METAB OLIC PANEL globulin 2.6 1.5-4. 5 normal Not Available [facility] [address] [place] [address], [address], 06/14/2023 10:15:25 06/14/19 24 06/14/2023 COMP. METAB OLIC PANEL albumin/glob ulin ratio 1.5 (calc ) 1.1-2. 5 normal Not Available [facility] [address] [place] [address], [phone], 06/14/2023 10:15:25 06/14/19 24 06/14/2023 COMP. METAB OLIC PANEL bilirubin, total 0.2 mg/dL 0.1-1. 2 normal Not Available [facility] [address] [place] [address], [phone], 06/14/2023 10:15:25 06/14/19 24 06/14/2023 COMP. METAB OLIC PANEL alkaline phosphatase 77 U/L 30-121 normal Not Available [facility] [address] [place], [address], 06/14/2023 10:15:25 06/14/19 24 06/14/2023 COMP. METAB OLIC PANEL AST 14 U/L 0-32 normal Not Available [facility] [address] [place] [address], [phone], 06/14/2023 10:15:25 06/14/19 24 06/14/2023 COMP. METAB OLIC PANEL ALT 15 U/L 0-33 normal Not Available [facility] [address] [place] [address], [phone], 06/14/2023 10:15:25 06/14/19 24 06/14/2023 COMP. METAB OLIC PANEL GFR 76 >= 60 normal NOT E New calcu latio n for GFR (CKD- EPI 2020) is formu lated witho ut race adjus tment facto rs at the recom menda tion of the [facility] [employer] [facility] [employer] [facility] and Ameri can Felicitase ty of Nephr ology . This calcu latio n has not been valid ated in pregn ant women . For miles reyes nts refer to https ://ju carroll.abdullahi hughes/[email or web address] lares s/AYAKAO QI/gf r_cal culat orPed Not Available [facility] [address] [place], [address], 06/14/2023 10:15:25 06/14/19 24 06/14/2023 COMPL ETE BLOOD COUNT white blood cells 7.8 10*3/ uL 3.8-10 .8 normal Not Available [facility] [address] [place] [address], [phone], 06/14/2023 09:41:31 06/14/19 24 06/14/2023 COMPL ETE BLOOD COUNT red blood cells 4.69 10*6/ uL 3.80-5 .20 normal Not Available [facility] [address] [place] [address], [address], 06/14/2023 09:41:31 06/14/19 24 06/14/2023 COMPL ETE BLOOD COUNT hemoglobin 13.7 g/dL 12.0-1 6.0 normal Not Available [facility] [address] [place] [address], [address], 06/14/2023 09:41:31 06/14/19 24 06/14/2023 COMPL ETE BLOOD COUNT hematocrit 41.9 % 35.0-4 7.0 normal Not Available [facility] [address] [place] [address], [address], 06/14/2023 09:41:31 06/14/19 24 06/14/2023 COMPL ETE BLOOD COUNT MCV 90 fL 80-100 normal Not Available [facility] [address] [place] [address], [address], 06/14/2023 09:41:31 06/14/19 24 06/14/2023 COMPL ETE BLOOD COUNT MCH 29 pg 26-35 normal Not Available [facility] [address] [place] [address], [address], 06/14/2023 09:41:31 06/14/19 24 06/14/2023 COMPL ETE BLOOD COUNT MCHC 33 g/dL 32-36 normal Not Available [facility] [address] [place] [address], [address], 06/14/2023 09:41:31 06/14/19 24 06/14/2023 COMPL ETE BLOOD COUNT RDW 13.8 % 11.0-1 5.0 normal Not Available [facility] [address] [place] [address], [address], 06/14/2023 09:41:31 06/14/19 24 06/14/2023 COMPL ETE BLOOD COUNT MPV 7.4 fL 6.2-10 .5 normal Not Available [facility] [address] [place] [address], [address], 06/14/2023 09:41:31 06/14/19 24 06/14/2023 COMPL ETE BLOOD COUNT platelet count 266 10*3/ uL 150-40 0 normal Not Available [facility] [address] [place] [address], [address], 06/14/2023 09:41:31 06/14/19 24 06/14/2023 COMPL ETE BLOOD COUNT neutrophil,a bsolute 5.4 10*3/ uL 1.6-8. 4 normal Not Available [facility] [address] [place] [address], [address], 06/14/2023 09:41:31 06/14/19 24 06/14/2023 COMPL ETE BLOOD COUNT lymphocyte,a bsolute 1.5 10*3/ uL 0.4-5. 1 normal Not Available [facility] [address] [place] [address], [address], 06/14/2023 09:41:31 06/14/19 24 06/14/2023 COMPL ETE BLOOD COUNT monocyte,abs olute 0.7 10*3/ uL 0.0-1. 2 normal Not Available [facility] [address] [place] [address], [address], 06/14/2023 09:41:31 06/14/19 24 06/14/2023 COMPL ETE BLOOD COUNT eosinophil,a bsolute 0.1 10*3/ uL 0.0-0. 8 normal Not Available [facility] [address] [place] [address], [address], 06/14/2023 09:41:31 06/14/19 24 06/14/2023 COMPL ETE BLOOD COUNT basophil,abs olute 0.1 10*3/ uL 0.0-0. 3 normal Not Available [facility] [address] [place] [address], [address], 06/14/2023 09:41:31 06/14/19 24 06/14/2023 COMPL ETE BLOOD COUNT % neutrophils 69.2 % 42.0-7 8.0 normal Not Available [facility] [address] [place] [address], [address], 06/14/2023 09:41:31 06/14/19 24 06/14/2023 COMPL ETE BLOOD COUNT % lymphocytes 19.8 % 11.0-4 7.0 normal Not Available [facility] [address] [place] [address], [address], 06/14/2023 09:41:31 06/14/19 24 06/14/2023 COMPL ETE BLOOD COUNT % monocytes 9.4 % 0.0-11 .0 normal Not Available [facility] [address] [place] [address], [address], 06/14/2023 09:41:31 06/14/19 24 06/14/2023 COMPL ETE BLOOD COUNT % eosinophils 0.9 % 0.0-7. 0 normal Not Available [facility] [address] [place] [address], [address], 06/14/2023 09:41:31 06/14/19 24 06/14/2023 COMPL ETE BLOOD COUNT % basophils 0.7 % 0.0-3. 0 normal Not Available [facility] [address] [place] [address], [address], 06/14/2023 09:41:31 06/14/19 24 06/14/2023 COMPL ETE BLOOD COUNT nucleated red cells 0.1 % 0.0-0. 9 normal Not Available [facility] [address] [place] [address], [address], 06/14/2023 09:41:31 06/14/19 24 06/14/2023 COMPL ETE BLOOD COUNT nucleated RBCs, absolute 0.01 10*3/ uL not estab. normal Not Available [facility] [address] [place] [address], [address], 06/14/2023 09:41:31 11/23/19 18 11/22/2017 MAMMO , diagn ostic , tomos ynthe sis, unila teral , w/ CAD [facility] [address] [place] [address] Emperatriz thong Name: MANA benito : 1949 Emperatriz benito 8 Orderi ng Provid er: TANISHA HENDRICKS EXAM DATE: 2017 EXAM: MG LT DIAG LEANA MAMMOG SUZETTE INDICA TION: This is a 67-yea r-old woman with a histor y of left breast cancer treate d with breast conser ving therap y. She is referr ed for diagno stic evalua tion for lump palpat ed in the left breast . PROCED URE: Multis lice imagin g of the left breast was perfor med includ ing standa rd views using Hologi c Seleni a Dimens ions tomosy nthesi s equipm ent (3D mammog olga) . 2D images were create d from the 3D datase t using C-View softwa re. Images were evalua michaelle with the assist ance of Comput er Aided Detect ion (CAD) softwa re. Specia l views were also perfor med includ ing mediol ateral and spot compre ssion views. COMPAR DEQUAN: This is compar ed with prior mammog deepti dated er 2016, Novem er 2015 and er 2014. FINDIN GS: There are scatte red fibrog landul ar elemen ts in the left breast . A BB marker was placed on the skin overly ing the palpab le area in the lower outer quadra nt. The marker direct ly corres ponds with a 3 cm area of calcif ied fat necros is. This includ es a 16 mm dystro phic calcif icatio n and adjace nt 10 mm area of rim calcif ied fat necros is. These are locate d within the partia l mastec solitario scar. The calcif icatio ns demons trate slow matura tion over the last couple of years. There is no associ ated mass or suspic ious distri bution of calcif icatio ns. There is no gross eviden ce of axilla ry lympha denopa thy. There is no new mass elsewh ere in the breast . IMPRES JOSSIE: BI-RAD S catego ry 2, Benign . The palpab le area in the latera l left breast corres ponds with calcif sony fat necros is associ ated with a lumpec solitario scar. This is consis tent with a normal sequel ae of prior surger y. There is no eviden ce of recurr ent malign dorina. Yearly screen ing mammog olga is recomm ended. Findin gs and recomm endati ons were discus sed with the emperatriz benito. Interp reted By: Diony francis MD Electr onical ly Signed By: Diony francis MD on 018 1:[id number] [facility] [address], [place], [address], 11/24/2017 09:06:40 03/09/20 18 03/09/2018 MAMMO , scree russell, tomos ynthe sis, bilat eral, w/ CAD [facility] [address] [place] [address] [place] [address] Emperatriz t Name: MANA BATES Emperatriz benito : 1949 Age: 68 years Patigavin t 8 Orderi ng Provid er: TANISHA Alfred CAMP EXAM DATE: 2017 EXAM: MG SCREEN ING LEANA MAMMOG SUZETTE INDICA TION: Screen ing. Histor y of breast cancer treate d with breast conser ving therap y. PROCED URE: Multis lice imagin g of both breast s was perfor med in standa rd projec tions using Hologi c Seleni a Dimens ions tomosy nthesi s equipm ent (3D mammog olga) . 2D images were create d from the 3D datase t using C-View softwa re. The study was read with the assist ance of Comput er Aided Detect ion (CAD) softwa re. COMPAR DEQUAN: This was compar ed with previo us mammog deepti dated 2016, 2015, 2014 FINDIN GS: There are scatte red fibrog landul ar elemen ts in the breast s. There is no mass or new cluste r of calcif icatio ns. There is stable scarri ng in the left breast with associ ated fat necros is and dystro phic calcif icatio ns. There is no suspic ious change . IMPRES JOSSIE: BI-RAD S catego ry 2, Benign . There is no eviden ce of malign dorina. Screen ing mammog deepti are recomm ended in one year. Result s were given to the emperatriz t. Interp reted By: Diony francis MD Electr onical ly Signed By: Diony francis MD on 2017 10:22 AM [facility] [address], [address], 03/09/2018 11:10:12 03/15/20 19 03/15/2019 MAMMO , scree russell, tomos ynthe sis, bilat eral, w/ CAD [facility] [address] [place] [address] Patien t Name: MANA Awan t : 1949 Age: 69 years Patigavin t 8 Orderi ng Provid er: TANISHA HENDRICKS EXAM DATE: 2018 EXAM: MG SCREEN ING LEANA MAMMOG SUZETTE INDICA TION: Screen ing. Histor y of breast cancer treate d with breast conser ving therap y. PROCED URE: Multis lice imagin g of both breast s was perfor med in standa rd projec tions using Hologi c Seleni a Dimens ions tomosy nthesi s equipm ent (3D mammog olga) . 2D images were create d from the 3D datase t using C-View softwa re. The study was read with the assist ance of Comput er Aided Detect ion (CAD) softwa re. COMPAR DEQUAN: This was compar ed with previo us mammog deepti dated , , FINDIN GS: There are scatte red fibrog landul ar elemen ts in the breast s. There is no mass or new cluste r of calcif icatio ns. There is stable scarri ng in the left breast . There is no suspic ious change . IMPRES JOSSIE: BI-RAD S catego ry 2, Benign . There is no eviden ce of malign dorina. Screen ing mammog deepti are recomm ended in one year. Result s were given to the patigavin t. Interp reted By: Diony francis MD Electr onical ly Signed By: Diony francis MD on 019 10:11 AM [facility] [address], [address], 08/21/2019 02:38:19 03/20/20 20 03/20/2020 MAMMO , scree russell, tomos ynthe sis, bilat eral, w/ [place] [address] Patigavin benito Name: MANA benito : 1949 Age: 70 years Patigavin benito 8 Orderi ng Provid er: TANISHA HENDRICKS EXAM DATE: 2019 EXAM: MG SCREEN ING LEANA MAMMOG SUZETTE INDICA TION: Screen ing. Histor y of breast cancer treate d with breast conser ving therap y. PROCED URE: Multis lice imagin g of both breast s was perfor med in standa rd projec tions using Hologi c Seleni a Dimens ions tomosy nthesi s equipm ent (3D mammog olga) . 2D images were create d from the 3D datase t using C-View softwa re. The study was read with the assist ance of Comput er Aided Detect ion (CAD) softwa re. COMPAR DEQUAN: This was compar ed with previo us mammog deepti dated 019, 2017, 2016 FINDIN GS: There are scatte red fibrog landul ar elemen ts in the breast s. There is no mass or cluste r of calcif icatio ns. There is stable scarri ng in the left breast . There is no suspic ious change . IMPRES JOSSIE: BI-RAD S catego ry 2, Benign . There is no eviden ce of malign dorina. Screen ing mammog deepti are recomm ended in one year. Result s were mailed or given to the emperatriz benito. Interp reted By: Diony francis MD Electr onical ly Signed By: Diony francis MD on 2019 10:26 AM INTERFACE [facility] [address], [address], 03/20/2020 10:31:20 05/05/19 22 05/05/2021 MAMMO , scree russell, tomos ynthe sis, bilat eral, w/ CAD [facility] [address] [place] [address] [facility] : 1949 Age: 71 years Patigavin benito 8 Orderi ng Provid er: TANISHA HENDRICKS EXAM DATE: 2021 EXAM: MG SCREEN ING LEANA MAMMOG SUZETTE INDICA TION: Screen ing. Histor y of breast cancer treate d with breast conser ving therap y. PROCED URE: Multis lice imagin g of both breast s was perfor med in standa rd projec tions using Hologi c Seleni a Dimens ions tomosy nthesi s equipm ent (3D mammog olga) . 2D images were create d from the 3D datase t using C-View softwa re. The study was read with the assist ance of Comput er Aided Detect ion (CAD) softwa re. COMPAR DEQUAN: This was compar ed with previo us mammog deepti dated 2019, 2018, 2017 FINDIN GS: There are scatte red fibrog landul ar elemen ts in the breast s. There is no suspic ious mass or cluste r of calcif icatio ns. No pamela ectura l distor tion. Scatte red benign coarse calcif icatio ns are again noted bilate rally. IMPRES JOSSIE: BI-RAD S catego ry 2, Benign . There is no eviden ce of malign dorina. Screen ing mammog deepti are recomm ended in one year. Result s were mailed or given to the emperatriz benito. Interp reted By: Daylin Russell MD Electr onical ly Signed By: Daylin Russell MD on 022 9:44 AM INTERFACE [facility] [address] [place] [address], [address], 05/05/2021 09:49:50 06/09/19 23 06/08/2022 MAMMO , scree russell, tomos ynthe sis, bilat eral, w/ CAD [facility] [address] [place] [address] Emperatriz benito Name: MANA benito : 1949 Age: 72 years Emperatriz benito 8 Orderi ng Provid er: TANISHA HENDRICKS EXAM DATE: 2022 EXAM: MG SCREEN ING LEANA MAMMOG SUZETTE INDICA TION: Screen ing. Histor y of breast cancer treate d with breast conser ving therap y. PROCED URE: Multis lice imagin g of both breast s was perfor med in standa rd projec tions using Hologi c Seleni a Dimens ions tomosy nthesi s equipm ent (3D mammog olga) . 2D images were create d from the 3D datase t using C-View softwa re. The study was read with the assist ance of Comput er Aided Detect ion (CAD) softwa re. COMPAR DEQUAN: This was compar ed with previo us mammog deepti dated 2, , 9 FINDIN GS: There are scatte red fibrog landul ar elemen ts in the breast s. There is no suspic ious mass or cluste r of calcif icatio ns. No pamela ectura l distor tion. There is stable scarri ng in the left breast . There is no suspic ious change . Dystro phic calcif icatio ns are noted associ ated with the left breast scarri ng. IMPRES JOSSIE: BI-RAD S catego ry 2, Benign . There is no eviden ce of malign dorina. Screen ing mammog deepti are recomm ended in one year. Result s were mailed or given to the patigavin t. Interp reted By: Daylin Russell MD Electr onical ly Signed By: Daylin Russell MD on 06/09/19 10:44 AM INTERFACE [facility] [address] [place] [address], [address], 06/08/2022 10:49:31 08/10/19 23 08/09/2022 CT, abdom en + pelvi s, w/o contr ast [address] [place] [address] Patien t Name: MANA benito : 1949 Patigavin t 8 Orderi ng Provid er: MAYLIN SAHU EXAM DATE: 2022 EXAM: CT ABD/PE LVIS WITHOU T CONTRA ST CLINIC AL INFORM ATION: Right flank pain. UTI. TECHNI QUE: Multip le axial CT images of the abdome n and pelvis were obtain ed withou t inject ion of IV contra st. Bowel was marked with water. COMPAR DEQUAN: None FINDIN GS ON CT ABDOME N: LOWER THORAX : Lung bases are clear. No obviou s cardia c abnorm ality. UPPER ABDOMI NAL ORGANS : Spleen shows multip le calcif ied granul omata. Gallbl adder is surgic ally absent . Liver, pancre as, adrena ls and both kidney s are normal . BOWEL AND MESENT DOC: Stomac h, small bowel and colon are normal . No mesent amy lympha denopa thy or perito zahira free fluid. RETROP ERITON EUM:Li mited evalua tion due to absenc e of IV contra st. Aorta shows athero sclero tic calcif icatio ns with normal aortic calibe r. IVC and branch es are normal . No retrop eriton eal lympha denopa thy. BODY WALL AND MUSCUL OSKELE JALYN STRUCT URES: Degene rative change s of the lumbar spine are noted. Anteri or abdomi nal wall is normal . FINDIN GS ON CT PELVIS : PELVIC CAVITY : Sigmoi d divert iculos is is noted withou t eviden ce of divert iculit is. Urinar y bladde r is normal . Uterus and ovarie s are atroph ic. No pelvic or inguin al lympha denopa thy, mass or fluid. MUSCUL OSKELE JALYN STRUCT URES: Normal . COMBIN ED IMPRES JOSSIE: No CT eviden ce of urinar y tract stone. No eviden ce of urinar y tract obstru ction. Interp reted By: Denia Mendoza MD Electr onical ly Signed By: Denia Mendoza MD on 08/10/19 5:11 PM [email or web address] [facility] [address], [place], [address], 09/06/2022 10:53:36 06/14/19 24 06/14/2023 MAMMO , scree russell, tomos ynthe sis, bilat eral, w/ CAD [facility] [address] [place] [address] Patigavin t Name: MANA benito : 1949 Age: 73 years Patien t 8 Orderi ng Provid er: TANISHA Alfred CAMP EXAM DATE: 2023 EXAM: MG SCREEN ING LEANA MAMMOG SUZETTE INDICA TION: Screen ing. Histor y of breast cancer treate d with breast conser ving therap y. PROCED URE: Multis lice imagin g of both breast s was perfor med in standa rd projec tions using Hologi c Seleni a Dimens ions tomosy nthesi s equipm ent (3D mammog olga) . 2D images were create d from the 3D datase t using C-View softwa re. The study was read with the assist ance of Comput er Aided Detect ion (CAD) softwa re. COMPAR DEQUAN: This was compar ed with previo us mammog deepti dated 06/08/22 , 2, FINDIN GS: There are scatte red fibrog landul ar elemen ts in the breast s. There is no suspic ious mass or cluste r of calcif icatio ns. No pamela ectura l distor tion. There is stable scarri ng in the left breast . There is no suspic ious change . Dystro phic calcif icatio n relate d to fat necros is associ ated with the left breast scarri ng. IMPRES JOSSIE: BI-RAD S catego ry 2, Benign . There is no eviden ce of malign dorina. Screen ing mammog deepti are recomm ended in one year. Result s were mailed or given to the emperatriz thong. Interp reted By: Daylin Russell MD Electr onical ly Signed By: Daylin Russell MD on 06/14/19 24 9:54 AM INTERFACE [facility] [address] [facility], [place], [address], 06/14/2023 09:59:33 09/06/19 24 09/06/2023 XR, shoul selam, 2 or more view [facility] [address] [place] [address] Joannegavin benito Name: MANA benito : 1949 Emperatriz benito 8 Orderi ng Provid er: TANISHA HOLDEN AM EXAM DATE: 2023 EXAM: XR RT SHOULD ER COMPLE TE RADIOG RAPHIC VIEWS: 3 COMPAR DEQUAN: None. HISTOR Y: Right should er pain. FINDIN GS: The bones of the should er are normal in alignm ent. There is no eviden ce of fractu re. There is mild degene rative change s at the acromi oclavi cular joint and along the glenoh umeral joint. The acromi oclavi cular and coraco clavic ular spacin g is normal . The visual ized right ribs and right lung appear s normal . IMPRES JOSSIE: 1. There are mild degene rative change s in the right should er. Interp reted By: Ly carvalho MD Electr onical ly Signed By: Ly carvalho MD on 024 11:12 AM [email or web address] [facility] [place] [address] , [place], [address], 10/19/2023 13:51:50 06/25/19 25 06/19/2024 MAMMO , scree russell, tomos ynthe sis, bilat eral, w/ CAD [address] [address] [phone] Emperatriz benito Name: MANA benito : 1949 Age: 74 years Patigavin t 8 Orderi ng Provid er: TANISHA HENDRICKS EXAM DATE: 2024 EXAM: MG SCREEN ING LEANA MAMMOG SUZETTE INDICA TION: Routin e screen ing. Previo us left breast conser vation therap y for breast cancer . Family histor y of breast cancer involv ing a sister and matern al aunt and patern al aunt. PROCED URE: Multis lice imagin g of both breast s was perfor med in standa rd projec tions using Hologi c Seleni a Dimens ions tomosy nthesi s equipm ent (3D mammog olga) . 2D images were create d from the 3D datase t using C-View softwa re. The study was read with the assist ance of Comput er Aided Detect ion (CAD) softwa re. COMPAR DEQUAN: This was compar ed with previo us mammog deepti dated 06/14/19 24, 06/09/19 23, 022 DENSIT Y: There are scatte red areas of fibrog landul ar densit y. FINDIN GS:No new mass, suspic ious calcif icatio n or area of pamela ectura l distor tion. There is stable postsu rgical scarri ng and associ ated dystro phic calcif icatio n in the upper outer left breast . IMPRES JOSSIE: Benign exam. BI-RAD S Catego ry 2, Benign findin g, routin e follow -up. The patien t has been entere d into an Dig[employer] er system . Interp reted By: Romana lopez MD Electr onical ly Signed By: Romana lopez MD on 025 7:05 AM INTERFACE [facility] [address], [address], 06/24/2024 07:10:40 Result Notes Documentation Provider Name and Address Organization Details Recorded Time Mammo, Diagnostic, Tomosynthesis, Unilateral, W/ Cad : [address] [address] Patient Name: MANA BATES Patient : 1950 Patient Ordering Provider: ARLENE HENDRICKS EXAM DATE: 11/22/2017 EXAM: MG LT DIAG LEANA MAMMOGRAM INDICATION: This is a 67-year-old woman with a history of left breast cancer treated with breast conserving therapy. She is referred for diagnostic evaluation for lump palpated in the left breast. PROCEDURE: Multislice imaging of the left breast was performed including standard views using [employer] tomosynthesis equipment (3D mammography). 2D images were created from the 3D dataset using C-View software. Images were evaluated with the assistance of Computer Aided Detection (CAD) software. Special views were also performed including mediolateral and spot compression views. COMPARISON: This is compared with prior mammograms dated March 07, 2017, March 01, 2016 and February 10, 2015. FINDINGS: There are scattered fibroglandular elements in the left breast. A BB marker was placed on the skin overlying the palpable area in the lower outer quadrant. The marker directly corresponds with a 3 cm area of calcified fat necrosis. This includes a 16 mm dystrophic calcification and adjacent 10 mm area of rim calcified fat necrosis. These are located within the partial mastectomy scar. The calcifications demonstrate slow maturation over the last couple of years. There is no associated mass or suspicious distribution of calcifications. There is no gross evidence of axillary lymphadenopathy. There is no new mass elsewhere in the breast. IMPRESSION: BI-RADS category 2, Benign. The palpable area in the lateral left breast corresponds with calcifying fat necrosis associated with a lumpectomy scar. This is consistent with a normal sequelae of prior surgery. There is no evidence of recurrent malignancy. Yearly screening mammography is recommended. Findings and recommendations were discussed with the patient. Interpreted By: Diony Drake MD [facility] 11/24/2017 09:06:40 Mammo, Screening, Tomosynthesis, Bilateral, W/ Cad : [address] [address] Patient Name: MANA BATES Patient : 1950 Age: 68 years Patient Ordering Provider: ARLENE HENDRICKS EXAM DATE: 03/09/2018 EXAM: MG SCREENING LEANA MAMMOGRAM INDICATION: Screening. History of breast cancer treated with breast conserving therapy. PROCEDURE: Multislice imaging of both breasts was performed in standard projections using [employer] tomosynthesis equipment (3D mammography). 2D images were created from the 3D dataset using C-View software. The study was read with the assistance of Computer Aided Detection (CAD) software. COMPARISON: This was compared with previous mammograms dated 03/07/2017, 03/01/2016, 02/10/2015 FINDINGS: There are scattered fibroglandular elements in the breasts. There is no mass or new cluster of calcifications. There is stable scarring in the left breast with associated fat necrosis and dystrophic calcifications. There is no suspicious change. IMPRESSION: BI-RADS category 2, Benign. There is no evidence of malignancy. Screening mammograms are recommended in one year. Results were given to the patient. Interpreted By: Diony Drake MD NE HENDRICKS MD [address] [place] [address], [phone], [facility] 03/09/2018 11:10:12 Mammo, Screening, Tomosynthesis, Bilateral, W/ Cad : [address] [address] Patient Name: MANA BATES Patient : 1950 Age: 69 years Patient Ordering Provider: ARLENE Aubrie SIDNEY EXAM DATE: 03/15/2019 EXAM: MG SCREENING LEANA MAMMOGRAM INDICATION: Screening. History of breast cancer treated with breast conserving therapy. PROCEDURE: Multislice imaging of both breasts was performed in standard projections using [employer] tomosynthesis equipment (3D mammography). 2D images were created from the 3D dataset using C-View software. The study was read with the assistance of Computer Aided Detection (CAD) software. COMPARISON: This was compared with previous mammograms dated 03/09/18, 03/07/17, 03/01/16 FINDINGS: There are scattered fibroglandular elements in the breasts. There is no mass or new cluster of calcifications. There is stable scarring in the left breast. There is no suspicious change. IMPRESSION: BI-RADS category 2, Benign. There is no evidence of malignancy. Screening mammograms are recommended in one year. Results were given to the patient. Interpreted By: Diony Drake MD Not Available [facility] 08/21/2019 02:38:24 Mammo, Screening, Tomosynthesis, Bilateral, W/ Cad : [place] [address] Patient Name: MANA BATES Patient : 1950 Age: 70 years Patient Ordering Provider: ARLENE Alfred SIDNEY EXAM DATE: 03/20/2020 EXAM: MG SCREENING LEANA MAMMOGRAM INDICATION: Screening. History of breast cancer treated with breast conserving therapy. PROCEDURE: Multislice imaging of both breasts was performed in standard projections using [employer] tomosynthesis equipment (3D mammography). 2D images were created from the 3D dataset using C-View software. The study was read with the assistance of Computer Aided Detection (CAD) software. COMPARISON: This was compared with previous mammograms dated 03/15/2019, 03/09/2018, 03/07/2017 FINDINGS: There are scattered fibroglandular elements in the breasts. There is no mass or cluster of calcifications. There is stable scarring in the left breast. There is no suspicious change. IMPRESSION: BI-RADS category 2, Benign. There is no evidence of malignancy. Screening mammograms are recommended in one year. Results were mailed or given to the patient. Interpreted By: Diony Drake MD Not Available [facility] 03/20/2020 10:31:20 Mammo, Screening, Tomosynthesis, Bilateral, W/ Cad : [place] [address] Patient Name: MANA BATES Patient : 1950 Age: 71 years Patient Ordering Provider: ARLENE HENDRICKS EXAM DATE: 05/05/2021 EXAM: MG SCREENING LEANA MAMMOGRAM INDICATION: Screening. History of breast cancer treated with breast conserving therapy. PROCEDURE: Multislice imaging of both breasts was performed in standard projections using [employer] tomosynthesis equipment (3D mammography). 2D images were created from the 3D dataset using C-View software. The study was read with the assistance of Computer Aided Detection (CAD) software. COMPARISON: This was compared with previous mammograms dated 03/20/2020, 03/15/2019, 03/09/2018 FINDINGS: There are scattered fibroglandular elements in the breasts. There is no suspicious mass or cluster of calcifications. No architectural distortion. Scattered benign coarse calcifications are again noted bilaterally. IMPRESSION: BI-RADS category 2, Benign. There is no evidence of malignancy. Screening mammograms are recommended in one year. Results were mailed or given to the patient. Interpreted By: Daylin Russell MD Not Available [facility] 05/05/2021 09:49:50 Mammo, Screening, Tomosynthesis, Bilateral, W/ Cad : [place] [address] Patient Name: MANA BATES Patient : 1950 Age: 72 years Patient Ordering Provider: ARLENE HENDRICKS EXAM DATE: 06/08/2022 EXAM: MG SCREENING LEANA MAMMOGRAM INDICATION: Screening. History of breast cancer treated with breast conserving therapy. PROCEDURE: Multislice imaging of both breasts was performed in standard projections using [employer] Dim[employer] tomosynthesis equipment (3D mammography). 2D images were created from the 3D dataset using C-View software. The study was read with the assistance of Computer Aided Detection (CAD) software. COMPARISON: This was compared with previous mammograms dated 05/05/21, 03/20/20, 03/15/19 FINDINGS: There are scattered fibroglandular elements in the breasts. There is no suspicious mass or cluster of calcifications. No architectural distortion. There is stable scarring in the left breast. There is no suspicious change. Dystrophic calcifications are noted associated with the left breast scarring. IMPRESSION: BI-RADS category 2, Benign. There is no evidence of malignancy. Screening mammograms are recommended in one year. Results were mailed or given to the patient. Interpreted By: Daylin Russell MD Not Available [facility] 06/08/2022 10:49:31 Ct, Abdomen + Pelvis, W/o Contrast : [place] [address] Patient Name: MANA BATES Patient : 1950 Patient Ordering Provider: ANGIE SAHU EXAM DATE: 08/09/2022 EXAM: CT ABD/PELVIS WITHOUT CONTRAST CLINICAL INFORMATION: Right flank pain. UTI. TECHNIQUE: Multiple axial CT images of the abdomen and pelvis were obtained without injection of IV contrast. Bowel was marked with water. COMPARISON: None FINDINGS ON CT ABDOMEN: LOWER THORAX: Lung bases are clear. No obvious cardiac abnormality. UPPER ABDOMINAL ORGANS: Spleen shows multiple calcified granulomata. Gallbladder is surgically absent. Liver, pancreas, adrenals and both kidneys are normal. BOWEL AND MESENTERY: Stomach, small bowel and colon are normal. No mesenteric lymphadenopathy or peritoneal free fluid. RETROPERITONEUM:Limited evaluation due to absence of IV contrast. Aorta shows atherosclerotic calcifications with normal aortic caliber. IVC and branches are normal. No retroperitoneal lymphadenopathy. BODY WALL AND MUSCULOSKELETAL STRUCTURES: Degenerative changes of the lumbar spine are noted. Anterior abdominal wall is normal. FINDINGS ON CT PELVIS: PELVIC CAVITY: Sigmoid diverticulosis is noted without evidence of diverticulitis. Urinary bladder is normal. Uterus and ovaries are atrophic. No pelvic or inguinal lymphadenopathy, mass or fluid. MUSCULOSKELETAL STRUCTURES: Normal. COMBINED IMPRESSION: No CT evidence of urinary tract stone. No evidence of urinary tract obstruction. Interpreted By: Viktor Mendoza MD Giselle Thao [facility] 09/06/2022 10:53:36 Mammo, Screening, Tomosynthesis, Bilateral, W/ Cad : [facility] [address] [place] [address] Patient Name: MANA BATES Patient : 1950 Age: 73 years Patient Ordering Provider: ARLENE HENDRICKS EXAM DATE: 06/14/2023 EXAM: MG SCREENING LEANA MAMMOGRAM INDICATION: Screening. History of breast cancer treated with breast conserving therapy. PROCEDURE: Multislice imaging of both breasts was performed in standard projections using [employer] tomosynthesis equipment (3D mammography). 2D images were created from the 3D dataset using C-View software. The study was read with the assistance of Computer Aided Detection (CAD) software. COMPARISON: This was compared with previous mammograms dated 06/08/22, 05/05/21, 03/20/20 FINDINGS: There are scattered fibroglandular elements in the breasts. There is no suspicious mass or cluster of calcifications. No architectural distortion. There is stable scarring in the left breast. There is no suspicious change. Dystrophic calcification related to fat necrosis associated with the left breast scarring. IMPRESSION: BI-RADS category 2, Benign. There is no evidence of malignancy. Screening mammograms are recommended in one year. Results were mailed or given to the patient. Interpreted By: Daylin Russell MD Not Available [facility] 06/14/2023 09:59:33 Xr, Shoulder, 2 Or More View : [facility] [place] [address] [place] [address] Patient Name: MANA BATES Patient : 1950 Patient Ordering Provider: ARLENE BAILEY EXAM DATE: 09/06/2023 EXAM: XR RT SHOULDER COMPLETE RADIOGRAPHIC VIEWS: 3 COMPARISON: None. HISTORY: Right shoulder pain. FINDINGS: The bones of the shoulder are normal in alignment. There is no evidence of fracture. There is mild degenerative changes at the acromioclavicular joint and along the glenohumeral joint. The acromioclavicular and coracoclavicular spacing is normal. The visualized right ribs and right lung appears normal. IMPRESSION: 1. There are mild degenerative changes in the right shoulder. Interpreted By: Angie Mon MD [facility] 10/19/2023 13:51:50 Mammo, Screening, Tomosynthesis, Bilateral, W/ Cad : [facility] [address] [place] [address] Patient Name: MANA BATES Patient : 1950 Age: 74 years Patient Ordering Provider: ARLENE HENDRICKS EXAM DATE: 06/19/2024 EXAM: MG SCREENING LEANA MAMMOGRAM INDICATION: Routine screening. Previous left breast conservation therapy for breast cancer. Family history of breast cancer involving a sister and maternal aunt and paternal aunt. PROCEDURE: Multislice imaging of both breasts was performed in standard projections using [employer] tomosynthesis equipment (3D mammography). 2D images were created from the 3D dataset using C-View software. The study was read with the assistance of Computer Aided Detection (CAD) software. COMPARISON: This was compared with previous mammograms dated 06/14/2023, 06/08/2022, 05/05/2021 DENSITY: There are scattered areas of fibroglandular density. FINDINGS:No new mass, suspicious calcification or area of architectural distortion. There is stable postsurgical scarring and associated dystrophic calcification in the upper outer left breast. IMPRESSION: Benign exam. BI-RADS Category 2, Benign finding, routine follow-up. The patient has been entered into an automated reminder system. 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 95487637 Active 2014 From Automated Load;Provi selam: August Rothman Jr;Stat us: Active Not Available [facility] 6 05:47:40 Overlappi ng malignant neoplasm of female breast 280989357 Active 2015 From Automated Load;Provi selam: Hilary Holt; atus: Active Not Available [facility] 6 05:47:40 Chronic obstructi ve pulmonary disease 20589947 Active 2015 From Automated Load;Provi selam: Aj Gutierres;Stat us: Active Not Available [facility] 6 05:47:40 Problem Notes None recorded. Procedures Surgical History Date Name Laterality Status Provider Name and Address Organization Details Recorded Time 6 Remove Port-A-Cath w/port/pump completed DAYLIN ROHTMAN JR, MD [address] [place] [address], [phone], [facility] 03/31/2016 12:57:53 6 Hem/Onc Treatment Encounter completed Francesca Quick [facility] 03/31/2016 10:30:35 5 Breast Surgery completed Jaceygavin Hayes [facility] 03/31/2016 12:07:20 General [facility] 03/07/2017 13:59:39 Imaging Results None recorded. Procedure Notes None recorded. Medical Equipment None Reported. Allergies Allergen ID Allergen Name Allergen Category Reaction Reaction Severity Criticality Documentation Date Start Date Code Code System Note Provider Name and Address Organization Details Recorded Time 23698 Shellfish (substanc e) food,medi cation vomiting Not available Not available 03/03/20162014 31117 9003 SNOMED React ion: NAUSE A AND VOMIT INg updat ed 02-27 17 [facility] 7 13:56:47 Medications Name Sig Start Date Stop Date Status Note LastModified by Organization Details LastModified Time anastrozo le 1 mg tablet TAKE ONE TABLET BY MOUTH EVERY DAY 2018 active Not Available Not Available Not Avai lable Xanax 0.5 mg tablet Daily prn active Frequenc y: daily;Al t Frequenc y: prn;Medi cation Descript ion: alprazol am; Dosage:1 ; Route:or al; refills: 0 Not Available Not Available Not Available Zithromax Z-Brandt 250 mg tablet TAKE 2 TABLETS (500 MG) BY ORAL ROUTE ONCE DAILY FOR 1 DAY THEN 1 TABLET (250 MG) BY ORAL ROUTE ONCE DAILY FOR 4 DAYS 2017 active Not Available Not Available Not Avai lable Lipitor 40 mg tablet Every night at bedtime active Frequenc y: qhs;Medi cation Descript ion: atorvast atin; Dosage:1 ; Route:or al; refills: 0; Quantity :30 tablet Not Available Not Available Not Available Cipro 500 mg tablet Take 1 tablet every 12 hours by oral route. 2022 active Not Available Not Available Not Avai lable aspirin 81 mg tablet Daily active Duration : 30 days;Saad quency: daily;Me dication Descript ion: aspirin; Dosage:1 ; refills: 0; Quantity :30 Not Available Not Available Not Available Zyprexa 15 mg tablet Daily 03/07 completed Frequenc y: daily;Me dication Descript ion: olanzapi ne; Dosage:1 ; Route:or al; refills: 0 Not Available Not Available Not Available Blodgett 5 mg-325 mg tablet every 4-6 hours as needed 11/10 completed Not Available Not Available Not Available Depakote 500 mg tablet,de layed release Daily active Frequenc y: daily;Me dication Descript ion: divalpro ex sodium; Dosage:1 ; refills: 0 Not Available Not Available Not Available olanzapin e 10mg 1 po qd active Not Available Not Available No t Available Caltrate- 600 Two times a day active Frequenc y: bid;Medi cation Descript ion: calcium carbonat e; Dosage:1 ; Route:or al; refills: 0 Not Available Not Available Not Available Vitals Date Recorded Body height Body mass index (BMI) Body weight Provider Name and Address Organization Details Last Updated DateTime 07/29/2022 157.48 cm 30.7 kg/m2 03840.52 g [facility] 07/29/2022 14:17:38 Date Recorded Body height Body mass index (BMI) Body weight Provider Name and Address Organization Details Last Updated DateTime 09/06/2023 157.48 cm 31.3 kg/m2 20443.3 g Kimmy Rosas [facility] 09/06/2023 10:28:17 Date Recorded Body height Body mass index (BMI) Body weight Provider Name and Address Organization Details Last Updated DateTime 11/07/2022 157.48 cm 31.3 kg/m2 08686.3 g William Romero [facility] 11/07/2022 12:03:45 Date Recorded Body height Body mass index (BMI) Body weight Body temperature Heart rate Systolic blood pressure Diastolic blood pressure Provider Name and Address Organization Details Last Updated DateTime 8 158.75 cm 27.4 kg/m2 25588.7 6 g 97.9 [degF] 72 /min 117 mm[Hg] 73 mm[Hg] Ebony Vila [facility] 8 12:10:16 Date Recorded Body height Body mass index (BMI) Body weight Body temperature Heart rate Systolic blood pressure Diastolic blood pressure Provider Name and Address Organization Details Last Updated DateTime 8 158.75 cm 28.7 kg/m2 66307.9 8 g 97.4 [degF] 83 /min 106 mm[Hg] 52 mm[Hg] Heaven Rizzo [facility] 8 11:39:08 Social History Question Answer Notes LastModified by Organizat ion Details LastModified Time Tobacco Smoking Status Current Every Day [facility] 03/07/2017 13:58:57 What Was The Date Of Your Most Recent Tobacco Screening? 03/09/2018 Information not available 05/28/2019 Has Tobacco Cessation Counseling Been Provided? Yes [email or web address] Information not available 11/10/2016 On What Date Was Tobacco Cessation Counseling Provided? 03/09/2018 [email or web address] Information not available 03/09/2018 How Many Years Have You Smoked Tobacco? 40 [email or web address] Information not available 03/31/2016 Sex: Unknown Functional Status None recorded. Mental Status None recorded. Family History Nothing Reported Notes:diabetes sisters x 2 / mom/dad stroke - mom Medical History Condition Response Radiation Therapy Y Other Chemotherapy Y Breast Cancer Y Gynecological HistoryNo gynecological history recorded. 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 Her PowerPort was removed today. She can follow-up as needed for wound check. 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 940677663 C50.058 [id number] ARLENE HENDRICKS MD HEM[facility]C [facility] [address],[place] [address] 05/24/2017 10:47:29 05/24/2017 12:06:07 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 924146491 C50.819 Upper resp iratory infection 56611096 J06.9 [id number] ARLENE HENDRICKS MD HEM[facility] [address] [place] [address] 11/22/2017 10:18:42 11/22/2017 12:49:15 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 842335833 C50.793 [id number] ARLENE HENDRICKS MD HEM[facility]C [facility] [address],[facility] [address] [place] [address] 03/09/2018 11:27:20 03/09/2018 12:07:24 Primary malignant neoplasm of female breast 18771379 C50.819 Overlappin g malignant neoplasm of female breast 124747178 C50.527 [id number] ARLENE HENDRICKS MD HEM/ONC [facility] [address] 1 03/15/2019 10:47:42 03/15/2019 12:14:56 [id number] ARLENE HENDRICKS MD HEM/ONC [facility] [address] 1 03/20/2020 10:32:08 03/20/2020 11:18:55 [id number] ARLENE HENDRICKS MD HEM/ONC [facility] [address] 1 05/05/2021 10:38:27 05/05/2021 11:48:11 [id number] ARLENE HENDRICKS MD HEM/ONC [facility] [address] 06/08/2022 11:33:05 06/08/2022 12:38:37 [id number] MD TAMIKO RODRIGUEZ [facility] [address] [place] [address] 07/29/2022 13:26:54 07/29/2022 14:53:39 Recurrent urinary tract infection 355232219 N39.0 Plan as above Right flank pain 7203583 09 R10.9 Plan as above [id number] MD TAMIKO RODRIGUEZ [facility] [address] 0 11/07/2022 11:35:17 11/07/2022 12:40:44 Chronic infective cystitis 887741430 N30.20 Follow-up 6 months. Plan as above Acute urin karlene tract infection 963740350 N39.0 [id number] ARLENE BAILEY MD [facility]TH[facility]EDI [facility] [address] [address] 09/06/2023 10:27:07 09/06/2023 11:13:04 Impingement syndrome of right shoulder region 8724007022 62019 M75.41 Scapulalgia 13968658 M25 .511 Health Concerns Section Related Observation LastModified by Organization Detai ls LastModified Time None Recorded Concern Status LastModified by Organization Details LastModified Time None Recorded Advance Directives Directive None Recorded Payers Insurance Date Sequence Insurance Name Policy Number Policy Escudero Covered Member ID Escudero Member ID Guarantor Name 12/14/2017 2 [place] [facility] [employer] EMPL[employer]EE PROGRAM Mana E Bates 06/19/2024 3 [place] [id number] Mana E Bates 03/04/2020 1 [place] [id number] Mana E Bates [id number] Mana E Bates 06/25/2024 2 [place] [facility] [place] [employer] EMPLOYEE PROGRAM Mana E Bates [id number] Mana E Bates 06/19/2024 1 [place] Mana E Bates [id number] Mana E Bates Notes Date Note Type Note Provider Name and Address Organization Details Recorded Time 11/22/2017 text/html This is a 67-yea r-old female more than three years out from diagnosis of a T1c N0 M0, ER positive, LA positive, HER-2/maria luz positive breast cancer. She underwent partial mastectomy, TCH chemotherapy, radiation and then four years worth of Herceptin. She completed all that without any major event. All Herceptin was completed in February of 2016. She was then placed on Arimidex, which she has tolerated quite well. She returns today doing fairly well, but says the area in the left breast feels like it has changed, however, feels more swollen and especially along the suture line that she has had previously. ARLENE HENDRICKS MD [address] [place] [address], [phone], [facility] 11/28/2017 12:19:22 03/09/2018 text/html This is a 68-yea r-old female with now three and a half years out from diagnosis of T1c N0 M0 ER positive, HER-2/maria luz positive breast cancer. She underwent partial mastectomy, TSH chemotherapy and a full year's worth of Herceptin without any major issues. All Herceptin was completed in February 2016. After systemic therapy, she was placed on Arimidex, which she has tolerated quite well. We recently had some concerns about some swelling really kind of proven to be sort of fatty necrotic area postsurgical, but otherwise she has done well. She returns today with a followup screening mammogram that is BIRADS-2, but unchanged from previous. Her laboratory studies done today, CBC and CMP are largely unremarkable and she is doing well. ARLENE HENDRICKS MD [address] [place] [address] [place], [phone], [facility] 03/14/2018 14:27:41 07/29/2022 text/html Patient is here today with her daughter regarding recurrent urinary infections. This has been present since April. She has been on 3-4 rounds of antibiotics. She also has some right-sided flank pain at times. Her last antibiotic was about a month ago. She typically has nocturia x2. Her urine specimen today is unremarkable. She still has some right-sided flank discomfort and I suggest we arrange for CT scan without contrast. We will make further recommendations based on those findings. ANGIE SAHU MD [address] [place] [address] [place], [phone], [facility] 07/31/2022 21:03:52 11/07/2022 text/html Walk patient is here to follow-up previous chronic cystitis. I last saw her for initial visit in July. Her CT scan was unremarkable. Her flank pain resolved. She states for the last few days she has had some mild irritative symptoms. She is concerned that she may have developed another urinary infection. She has slight amount of leukocytes but otherwise negative. We will culture her urine and treat if significant. She is here today with her daughter William wise, [facility] 11/07/2022 13:44:03 09/06/2023 text/html HAND DOMINANCE: RightWHAT: Right Shoulder.WHEN: August 16, 2023HOW: patient fell down in the showerSYMPTOMS: Pain is constant throbbing in nature.The patient does not have numbness or tinglingThey have popping and clicking that increases her painThey are not able to sleep comfortably with this injury.PAIN: 7 /10X-RAY: LCMRI:PT: noINJECTION: no Patient was seen at the hospital on August 26 at [facility]. Most of her pain is present in her trap muscles. Her pain is exacerbated with any movement of her right arm. Patient states that she was on prednisone for 5 days. ARLENE BAILEY MD [address] [place] [address], [phone], [facility] 09/06/2023 12:17:25 OBGyn Episode No OBEpisode recorded.
--- OUTSIDE RECORDS SUMMARY | 2024-09-30 12:47 | XMS_ITS | Encounter Summary ---
Author Organization Healthcare Address [address] [place] [address] Care Team Providers Care Stripe Matcher Name Role Phone TrellSamia Vickie GRIDER Primary Care Provider [phone] Janusz Robertson MD Primary Care Provider [phone] Philipp Pacheco MD Unavailable [phone] Jarrett Hutchison MD Primary Care Provider [phone] Encounter Details Date Type Department Care Team (Late st Contact Info) Description 05/05/2021 Orders Only [facility] [address] [place] [address] Philipp Pacheco MD [address] [address] Social History Tobacco Use Types Packs/Day Years Used Date Smoking Tobacco: Former Alcohol Use Standard Drinks/Week Comments No 0 (1 standard drink = 0.6 oz pur e alcohol) Comments Unknown Sex and Gender Information Value Date Recorded Sex Assigned at Not on file Legal Sex Female 7:35 PM EDT Gender Identity Not on file Sexual Orientation Not on file documented as of this encounter Plan of Treatment Not on file documented as of this encounter Procedures Procedure Name Priority Date/Time Associated Diagnosis Comments CBC WITH AUTO DIFFERENTIAL Routine 05/05/2021 10:09 AM EST documented in this encounter Results * CBC and Differential (05/05/2021 10:09 AM EST) External WBC 6.1 3.8 - 10.8 K/uL [facility] External Red Blood Cell (RBC) 4.75 3.80 - 5.20 M/uL [facility] External Hemoglobin 13.9 12.0 - 16.0 G/DL [facility] External Hematocrit 42.5 35.0 - 47.0 % [facility] External MCV 90 80 - 100 fL [facility] External MCH 29 26 - 35 PG [facility] External MCHC 33 32 - 36 G/DL [facility] External RDW 14.5 11.0 - 15.0 % [facility] External Mean Platelet Volume 7.2 6.2 - 10.5 fL [facility] External Platelets 268 130 - 400 K/uL [facility] External Neutrophil# 3.6 1.6 - 8.4 K/uL [facility] External Lymphocyte# 1.7 0.4 - 5.1 K/uL [facility] External Absolute Monocyte (Abs Lee) 0.7 0.0 - 1.2 K/uL [facility] External Eosinophils# 0.1 0.0 - 0.8 K/uL [facility] External Baso# 0.0 0.0 - 0.3 K/uL [facility] External Neutrophils % 58.8 42.0 - 78.0 % [facility] External Lymphocyte % 27.9 11.0 - 47.0 % [facility] External Monocyte % 10.8 0.0 - 11.0 % [facility] External Eosinophil% 1.9 0.0 - 7.0 % [facility] External Basophil % 0.6 0.0 - 3.0 % [facility] External Nucleated RBC%-Auto 0.0 0.0 - 0.9 % [facility] External Nucleated RBC Absolute 0.00 Not Estab. K/uL [facility] 05/05/2021 10:0 9 AM EST 05/05/2021 10:21 AM EST Philipp Pacheco MD LAB BLOOD ORDERABLES Final Res ult [facility] [address] [place] [address], documented in this encounter Visit Diagnoses Not on filedocumented in this encounter Care Teams Stripe Matcher Relationship Specialty Start Date End Date Samia Cai APRN [address] [place] [id number] PCP - General 08/21/20 06/11/23 Janusz Robertson MD [address] [place] [address] PCP - General 06/12/23 06/13/23 Jarrett Hutchison MD [address] [place] [id number] PCP - General Family Medicine 06/14/23 Philipp Pacheco MD [address] [place] [id number] Medical Oncologist Hematology and Oncology 06/14/23 documented as of this encounter
--- OUTSIDE RECORDS SUMMARY | 2024-09-30 12:47 | XMS_ITS | Data Portability ---
Author Organization [facility] Address [address] [place] [address] Care Team Providers Care Welder [employer] Name Role Phone MABEL ROBERTSON Primary Care Provider ARLENE HENDRICKS Hematology/Oncology Assessment Encounter Date Assessment Date Assessment LastModified by Organization Details LastModified Time 03/15/2019 03/15/2019 This is a 69-year-old female, now four and half years out from diagnosis of an ER positive, HER2/maria luz positive breast cancer. We will continue her on Arimidex, see her back in about another year with repeat labs, mammogram and exam at that time. overall duration of the Arimidex because she is HER2/maria luz positive, we will probably push for full seven years based on some newer data. [email or web address] Not available 03/21/2019 08:00:28 03/20/2020 03/20/2020 This is a 70-year-old female, with now 5-1/2 years out from diagnosis of an ER positive, HER-2 positive breast cancer, status post partial mastectomy, H adjuvant systemic chemotherapy, radiation, and then a complete year's worth of Herceptin completed in February 2016. She has been on Arimidex. Her goal was a full 7 years worth of therapy. Due to the fact that she is HER-2/maria luz positive, we will continue monitor her. I will see her back in about another year. No evidence of any recurrent disease. We will do mammograms and labs when she returns. [email or web address] Not available 03/21/2020 05:12:18 05/05/2021 05/05/2021 This is a 71-year-old female with a left-sided breast cancer quadrant unspecified, status post partial mastectomy along with radiation. She had adjuvant TCH chemotherapy and completed all Herceptin in February 2016. She has been on Arimidex now for more than 5-1/2 years. We will see her back in about another year and repeat labs, exam, and mammogram at that time. Additionally, we will get this information that her basic labs, CBC and CMP back to her primary physician, Roderick Robertson. She does take Depakote and has these measures. These levels are measured and so this will hopefully be beneficial to her as well. 2. Bone density issue. She does take calcium and vitamin D as well and certainly will be mindful of her bone density as we move forward. [email or web address] Not available 05/06/2021 09:19:29 06/08/2022 06/08/2022 This is a 72-year-old female with a T1c, N0, M0, ER positive, HER-2 positive breast cancer status post partial mastectomy, adjuvant TCH. A complete year's worth of Herceptin completed in February 2016. Since about August 2015, she has been on Arimidex. Our goal is about 7 years worth of therapy. She will continue this for about another 6 months or so, makeup, and we will see her back in another year which should complete all therapy. I think December is when she really started on the medications, so she will finish in December. See me back in a year and after that she will not require any further oncology follow-up. [email or web address] Not available 06/10/2022 00:02:48 Plan of Treatment Reminders Order Date Submit Date Provider Last Modified By Organization Details Last Modified Time Details Appointments None record ed. Lab None record ed. Referral None record ed. Procedures None record ed. Surgeries None record ed. Imaging None record ed. Medication Orders None record ed. Patient TargetsNo targets recorded. Patient InstructionsNo instructions recorded. Reason for Referral None Reported. Results Created Date Observation Date Name Description Value Unit Range Abnormal Flag Note LastModifiedBy Organization Detail LastModifiedTime 03/15/20 19 03/15/2019 CBC w/ auto diff white blood cells 5.5 K/uL 3.8-10 .8 normal Not Available [facility] [address] [facility], [place], [address], 03/15/2019 10:42:32 03/15/20 19 03/15/2019 CBC w/ auto diff red blood cells 4.51 M/uL 3.80-5 .20 normal Not Available [facility] [address] [place], [address], 03/15/2019 10:42:32 03/15/20 19 03/15/2019 CBC w/ auto diff hemoglobin 13.9 g/dL 12.0-1 6.0 normal Not Available [facility] [address] [place] [address], [phone], 03/15/2019 10:42:32 03/15/20 19 03/15/2019 CBC w/ auto diff hematocrit 40.6 % 35.0-4 7.0 normal Not Available [facility] [address] [place] [address], [address], 03/15/2019 10:42:32 03/15/20 19 03/15/2019 CBC w/ auto diff MCV 90 fL 80-100 normal Not Available [facility] [address] [place] [address], [address], 03/15/2019 10:42:32 03/15/20 19 03/15/2019 CBC w/ auto diff MCH 31 pg 26-35 normal Not Available [facility] [address] [place] [address], [phone], 03/15/2019 10:42:32 03/15/20 19 03/15/2019 CBC w/ auto diff MCHC 34 g/dL 32-36 normal Not Available [facility] [address] [place] [address], [address], 03/15/2019 10:42:32 03/15/20 19 03/15/2019 CBC w/ auto diff RDW 13.9 % 11.0-1 5.0 normal Not Available [facility] [address] [place] [address], [address], 03/15/2019 10:42:32 03/15/20 03/15/2019 CBC w/ auto diff MPV 6.8 fL 6.2-10 .5 normal Not Available [facility] [address] [place] [address], [address], 03/15/2019 10:42:32 03/15/20 19 03/15/2019 CBC w/ auto diff platelet count 268 K/uL 130-40 0 normal Not Available [facility] [address] [place] [address], [address], 03/15/2019 10:42:32 03/15/20 19 03/15/2019 CBC w/ auto diff neutrophil,a bsolute 3.5 K/uL 1.6-8. 4 normal Not Available [facility] [address] [place] [address], [address], 03/15/2019 10:42:32 03/15/20 19 03/15/2019 CBC w/ auto diff lymphocyte,a bsolute 1.3 K/uL 0.4-5. 1 normal Not Available [facility] [address] [place] [address], [id number], 03/15/2019 10:42:32 03/15/20 19 03/15/2019 CBC w/ auto diff monocyte,abs olute 0.6 K/uL 0.0-1. 2 normal Not Available [facility] [address] [place] [address], [address], 03/15/2019 10:42:32 03/15/20 19 03/15/2019 CBC w/ auto diff eosinophil,a bsolute 0.1 K/uL 0.0-0. 8 normal Not Available [facility] [address] [place] [address], [address], 03/15/2019 10:42:32 03/15/20 19 03/15/2019 CBC w/ auto diff basophil,abs olute 0.0 K/uL 0.0-0. 3 normal Not Available [facility] [address] [place] [address], [address], 03/15/2019 10:42:32 03/15/20 19 03/15/2019 CBC w/ auto diff % neutrophils 64.5 % 42.0-7 8.0 normal Not Available [facility] [address] [place] [address], [address], 03/15/2019 10:42:32 03/15/20 19 03/15/2019 CBC w/ auto diff % lymphocytes 22.8 % 11.0-4 7.0 normal Not Available [facility] [address] [place] [address], [address], 03/15/2019 10:42:32 03/15/20 19 03/15/2019 CBC w/ auto diff % monocytes 10.6 % 0.0-11 .0 normal Not Available [facility] [address] [place] [address], [address], 03/15/2019 10:42:32 03/15/20 19 03/15/2019 CBC w/ auto diff % eosinophils 1.5 % 0.0-7. 0 normal Not Available [facility] [address] [place] [address], [address], 03/15/2019 10:42:32 03/15/20 19 03/15/2019 CBC w/ auto diff % basophils 0.6 % 0.0-3. 0 normal Not Available [facility] [address] [place] [address], [address], 03/15/2019 10:42:32 03/15/20 19 03/15/2019 CBC w/ auto diff nucleated red cells 0.0 % 0.0-0. 9 normal Not Available [facility] [address] [place] [address], [address], 03/15/2019 10:42:32 03/15/20 19 03/15/2019 CBC w/ auto diff nucleated RBCs, absolute 0.00 K/uL not estab. normal Not Available [facility] [address] [place] [address], [address], 03/15/2019 10:42:32 03/15/20 19 03/15/2019 CMP, serum or plasm a glucose 121 mg/dL 74-100 high Not Available [facility] [address] [place] [address], [address], 03/15/2019 11:09:35 03/15/20 19 03/15/2019 CMP, serum or plasm a blood urea nitrogen 10 mg/dL 6-20 normal Not Available [facility] [address] [place] [address], [address], 03/15/2019 11:09:35 03/15/20 19 03/15/2019 CMP, serum or plasm a creatinine 0.67 mg/dL 0.50-0 .95 normal Not Available [facility] [address] [place] [address], [address], 03/15/2019 11:09:35 03/15/20 19 03/15/2019 CMP, serum or plasm a BUN/creatini ne ratio 15 (calc ) 10-20 normal Not Available [facility] [address] [place] [address], [address], 03/15/2019 11:09:35 03/15/20 19 03/15/2019 CMP, serum or plasm a sodium 143 mmol/ L 136-14 5 normal Not Available [facility] [address] [place] [address], [address], 03/15/2019 11:09:35 03/15/20 19 03/15/2019 CMP, serum or plasm a potassium 4.3 mmol/ L 3.4-5. 0 normal Not Available [facility] [address] [place] [address], [address], 03/15/2019 11:09:35 03/15/20 19 03/15/2019 CMP, serum or plasm a chloride 104 mmol/ L 98-107 normal Not Available [facility] [address] [place] [address], [address], 03/15/2019 11:09:35 03/15/20 19 03/15/2019 CMP, serum or plasm a carbon dioxide 24 mmol/ L 20-32 normal Not Available [facility] [address] [place] [address], [address], 03/15/2019 11:09:35 03/15/20 19 03/15/2019 CMP, serum or plasm a anion gap 15 (calc ) 7-25 normal Not Available [facility] [address] [place] [address], [address], 03/15/2019 11:09:35 03/15/20 19 03/15/2019 CMP, serum or plasm a calcium 9.4 mg/dL 8.6-10 .2 normal Not Available [facility] [address] [place] [address], [address], 03/15/2019 11:09:35 03/15/20 19 03/15/2019 CMP, serum or plasm a total protein 6.9 g/dL 6.4-8. 3 normal Not Available [facility] [address] [place] [address], [address], 03/15/2019 11:09:35 03/15/20 19 03/15/2019 CMP, serum or plasm a albumin 4.4 g/dL 3.5-5. 2 normal Not Available [facility] [address] [place] [address], [address], 03/15/2019 11:09:35 03/15/20 19 03/15/2019 CMP, serum or plasm a globulin 2.5 g/dL_ (calc ) 1.5-4. 5 normal Not Available [facility] [address] [place] [address], [address], 03/15/2019 11:09:35 03/15/20 19 03/15/2019 CMP, serum or plasm a albumin/glob ulin ratio 1.8 (calc ) 1.1-2. 5 normal Not Available [facility] [address] [place] [address], [address], 03/15/2019 11:09:35 03/15/20 19 03/15/2019 CMP, serum or plasm a bilirubin, total <0.2 mg/dL 0.1-1. 2 normal Not Available [facility] [address] [place], [address], 03/15/2019 11:09:35 03/15/20 19 03/15/2019 CMP, serum or plasm a alkaline phosphatase 60 U/L 35-105 normal Not Available [facility] [address] [place], [address], 03/15/2019 11:09:35 03/15/20 19 03/15/2019 CMP, serum or plasm a AST 15 U/L 0-32 normal Not Available [facility] [address] [place] [address], [address], 03/15/2019 11:09:35 03/15/20 19 03/15/2019 CMP, serum or plasm a ALT 16 U/L 0-33 normal Not Available [facility] [address] [place], [address], 03/15/2019 11:09:35 03/15/20 19 03/15/2019 CMP, serum or plasm a GFR 105 >= 60 normal Not Available [facility] [address] [place], [address], 03/15/2019 11:09:35 03/15/20 19 03/15/2019 CMP, serum or plasm [...] month s or longe r. Not Available [facility] [address] [place] [address], [address], 03/15/2019 11:09:35 03/20/20 20 03/20/2020 CBC w/ auto diff white blood cells 5.9 K/uL 3.8-10 .8 normal Not Available [facility] [address] [place] [address], [address], 03/20/2020 10:31:30 03/20/20 20 03/20/2020 CBC w/ auto diff red blood cells 4.90 M/uL 3.80-5 .20 normal Not Available [facility] [address] [place] [address], [address], 03/20/2020 10:31:30 03/20/20 20 03/20/2020 CBC w/ auto diff hemoglobin 14.6 g/dL 12.0-1 6.0 normal Not Available [facility] [address] [place] [address], [address], 03/20/2020 10:31:30 03/20/20 20 03/20/2020 CBC w/ auto diff hematocrit 44.1 % 35.0-4 7.0 normal Not Available [facility] [address] [place] [address], [address], 03/20/2020 10:31:30 03/20/20 20 03/20/2020 CBC w/ auto diff MCV 90 fL 80-100 normal Not Available [facility] [address] [place] [address], [address], 03/20/2020 10:31:30 03/20/20 20 03/20/2020 CBC w/ auto diff MCH 30 pg 26-35 normal Not Available [facility] [address] [place] [address], [address], 03/20/2020 10:31:30 03/20/20 20 03/20/2020 CBC w/ auto diff MCHC 33 g/dL 32-36 normal Not Available [facility] [address] [place], [address], 03/20/2020 10:31:30 03/20/20 20 03/20/2020 CBC w/ auto diff RDW 14.6 % 11.0-1 5.0 normal Not Available [facility] [address] [place] [address], [address], 03/20/2020 10:31:30 03/20/20 20 03/20/2020 CBC w/ auto diff MPV 7.5 fL 6.2-10 .5 normal Not Available [facility] [address] [place] [address], [address], 03/20/2020 10:31:30 03/20/20 20 03/20/2020 CBC w/ auto diff platelet count 320 K/uL 130-40 0 normal Not Available [facility] [address] [place] [address], [address], 03/20/2020 10:31:30 03/20/20 20 03/20/2020 CBC w/ auto diff neutrophil,a bsolute 3.3 K/uL 1.6-8. 4 normal Not Available [facility] [address] [place] [address], [address], 03/20/2020 10:31:30 03/20/20 20 03/20/2020 CBC w/ auto diff lymphocyte,a bsolute 1.7 K/uL 0.4-5. 1 normal Not Available [facility] [address] [place] [address], [address], 03/20/2020 10:31:30 03/20/20 20 03/20/2020 CBC w/ auto diff monocyte,abs olute 0.7 K/uL 0.0-1. 2 normal Not Available [facility] [address] [place] [address], [address], 03/20/2020 10:31:30 03/20/20 20 03/20/2020 CBC w/ auto diff eosinophil,a bsolute 0.1 K/uL 0.0-0. 8 normal Not Available [facility] [address] [place] [address], [address], 03/20/2020 10:31:30 03/20/20 20 03/20/2020 CBC w/ auto diff basophil,abs olute 0.0 K/uL 0.0-0. 3 normal Not Available [facility] [address] [place] [address], [address], 03/20/2020 10:31:30 03/20/20 20 03/20/2020 CBC w/ auto diff % neutrophils 56.5 % 42.0-7 8.0 normal Not Available [facility] [address] [place] [address], [address], 03/20/2020 10:31:30 03/20/20 20 03/20/2020 CBC w/ auto diff % lymphocytes 29.2 % 11.0-4 7.0 normal Not Available [facility] [address] [place] [address], [address], 03/20/2020 10:31:30 03/20/20 20 03/20/2020 CBC w/ auto diff % monocytes 11.4 % 0.0-11 .0 high Not Available [facility] [address] [place] [address], [address], 03/20/2020 10:31:30 03/20/20 20 03/20/2020 CBC w/ auto diff % eosinophils 2.4 % 0.0-7. 0 normal Not Available [facility] [address] [place] [address], [address], 03/20/2020 10:31:30 03/20/20 20 03/20/2020 CBC w/ auto diff % basophils 0.5 % 0.0-3. 0 normal Not Available [facility] [address] [place] [address], [address], 03/20/2020 10:31:30 03/20/20 20 03/20/2020 CBC w/ auto diff nucleated red cells 0.0 % 0.0-0. 9 normal Not Available [facility] [address] [place] [address], [address], 03/20/2020 10:31:30 03/20/20 20 03/20/2020 CBC w/ auto diff nucleated RBCs, absolute 0.00 K/uL not estab. normal Not Available [facility] [address] [place] [address], [address], 03/20/2020 10:31:30 03/20/20 20 03/20/2020 CMP, serum or plasm a glucose 121 mg/dL 74-100 high Not Available [facility] [address] [place] [address], [address], 03/20/2020 10:51:46 03/20/20 20 03/20/2020 CMP, serum or plasm a blood urea nitrogen 11 mg/dL 6-20 normal Not Available [facility] [address] [place] [address], [address], 03/20/2020 10:51:46 03/20/20 20 03/20/2020 CMP, serum or plasm a creatinine 0.80 mg/dL 0.50-0 .95 normal Not Available [facility] [address] [place] [address], [address], 03/20/2020 10:51:46 03/20/20 20 03/20/2020 CMP, serum or plasm a BUN/creatini ne ratio 14 (calc ) 10-20 normal Not Available [facility] [address] [place] [address], [address], 03/20/2020 10:51:46 03/20/20 20 03/20/2020 CMP, serum or plasm a sodium 143 mmol/ L 136-14 5 normal Not Available [facility] [address] [place] [address], [address], 03/20/2020 10:51:46 03/20/20 20 03/20/2020 CMP, serum or plasm a potassium 4.0 mmol/ L 3.4-5. 0 normal Not Available [facility] [address] [place] [address], [address], 03/20/2020 10:51:46 03/20/20 20 03/20/2020 CMP, serum or plasm a chloride 104 mmol/ L 98-107 normal Not Available [facility] [address] [place] [address], [address], 03/20/2020 10:51:46 03/20/20 20 03/20/2020 CMP, serum or plasm a carbon dioxide 29 mmol/ L 20-32 normal Not Available [facility] [address] [place] [address], [address], 03/20/2020 10:51:46 03/20/20 20 03/20/2020 CMP, serum or plasm a anion gap 10 (calc ) 7-25 normal Not Available [facility] [address] [place] [address], [address], 03/20/2020 10:51:46 03/20/20 20 03/20/2020 CMP, serum or plasm a calcium 9.3 mg/dL 8.6-10 .2 normal Not Available [facility] [address] [place] [address], [address], 03/20/2020 10:51:46 03/20/20 20 03/20/2020 CMP, serum or plasm a total protein 6.9 g/dL 6.4-8. 3 normal Not Available [facility] [address] [place] [address], [address], 03/20/2020 10:51:46 03/20/20 20 03/20/2020 CMP, serum or plasm a albumin 4.2 g/dL 3.5-5. 2 normal Not Available [facility] [address] [place] [address], [address], 03/20/2020 10:51:46 03/20/20 20 03/20/2020 CMP, serum or plasm a globulin 2.7 g/dL_ (calc ) 1.5-4. 5 normal Not Available [facility] [address] [place] [address], [address], 03/20/2020 10:51:46 03/20/20 20 03/20/2020 CMP, serum or plasm a albumin/glob ulin ratio 1.6 (calc ) 1.1-2. 5 normal Not Available [facility] [address] [place] [address], [address], 03/20/2020 10:51:46 03/20/20 20 03/20/2020 CMP, serum or plasm a bilirubin, total 0.2 mg/dL 0.1-1. 2 normal Not Available [facility] [address] [place] [address], [address], 03/20/2020 10:51:46 03/20/20 20 03/20/2020 CMP, serum or plasm a alkaline phosphatase 83 U/L 35-105 normal Not Available [facility] [address] [place] [address], [address], 03/20/2020 10:51:46 03/20/20 20 03/20/2020 CMP, serum or plasm a AST 13 U/L 0-32 normal Not Available [facility] [address] [place] [address], [address], 03/20/2020 10:51:46 03/20/20 20 03/20/2020 CMP, serum or plasm a ALT 17 U/L 0-33 normal Not Available [facility] [address] [place] [address], [address], 03/20/2020 10:51:46 03/20/20 20 03/20/2020 CMP, serum or plasm a GFR 88 >= 60 normal Not Available [facility] [address] [place] [address], [address], 03/20/2020 10:51:46 03/20/20 20 03/20/2020 CMP, serum [...] month s or longe r. Not Available [facility] [address] [place] [address], [address], 03/20/2020 10:51:46 05/05/19 22 05/05/2021 COMPL ETE BLOOD COUNT white blood cells 6.1 K/uL 3.8-10 .8 normal Not Available [facility] [address] [place] [address], [address], 05/05/2021 10:32:29 05/05/19 22 05/05/2021 COMPL ETE BLOOD COUNT red blood cells 4.75 M/uL 3.80-5 .20 normal Not Available [facility] [address] [place] [address], [address], 05/05/2021 10:32:29 05/05/19 22 05/05/2021 COMPL ETE BLOOD COUNT hemoglobin 13.9 g/dL 12.0-1 6.0 normal Not Available [facility] [address] [place] [address], [address], 05/05/2021 10:32:29 05/05/19 22 05/05/2021 COMPL ETE BLOOD COUNT hematocrit 42.5 % 35.0-4 7.0 normal Not Available [facility] [address] [place] [address], [address], 05/05/2021 10:32:29 05/05/19 22 05/05/2021 COMPL ETE BLOOD COUNT MCV 90 fL 80-100 normal Not Available [facility] [address] [place] [address], [address], 05/05/2021 10:32:29 05/05/19 22 05/05/2021 COMPL ETE BLOOD COUNT MCH 29 pg 26-35 normal Not Available [facility] [address] [place] [address], [address], 05/05/2021 10:32:29 05/05/19 22 05/05/2021 COMPL ETE BLOOD COUNT MCHC 33 g/dL 32-36 normal Not Available [facility] [address] [place] [address], [address], 05/05/2021 10:32:29 05/05/19 22 05/05/2021 COMPL ETE BLOOD COUNT RDW 14.5 % 11.0-1 5.0 normal Not Available [facility] [address] [place] [address], [address], 05/05/2021 10:32:29 05/05/19 22 05/05/2021 COMPL ETE BLOOD COUNT MPV 7.2 fL 6.2-10 .5 normal Not Available [facility] [address] [place] [address], [address], 05/05/2021 10:32:29 05/05/19 22 05/05/2021 COMPL ETE BLOOD COUNT platelet count 268 K/uL 130-40 0 normal Not Available [facility] [address] [place] [address], [address], 05/05/2021 10:32:29 05/05/19 22 05/05/2021 COMPL ETE BLOOD COUNT neutrophil,a bsolute 3.6 K/uL 1.6-8. 4 normal Not Available [facility] [address] [place] [address], [address], 05/05/2021 10:32:29 05/05/19 22 05/05/2021 COMPL ETE BLOOD COUNT lymphocyte,a bsolute 1.7 K/uL 0.4-5. 1 normal Not Available [facility] [address] [place] [address], [address], 05/05/2021 10:32:29 05/05/19 22 05/05/2021 COMPL ETE BLOOD COUNT monocyte,abs olute 0.7 K/uL 0.0-1. 2 normal Not Available [facility] [address] [place] [address], [address], 05/05/2021 10:32:29 05/05/19 22 05/05/2021 COMPL ETE BLOOD COUNT eosinophil,a bsolute 0.1 K/uL 0.0-0. 8 normal Not Available [facility] [address] [place] [address], [address], 05/05/2021 10:32:29 05/05/19 22 05/05/2021 COMPL ETE BLOOD COUNT basophil,abs olute 0.0 K/uL 0.0-0. 3 normal Not Available [facility] [address] [place] [address], [address], 05/05/2021 10:32:29 05/05/19 22 05/05/2021 COMPL ETE BLOOD COUNT % neutrophils 58.8 % 42.0-7 8.0 normal Not Available [facility] [address] [place] [address], [address], 05/05/2021 10:32:29 05/05/19 22 05/05/2021 COMPL ETE BLOOD COUNT % lymphocytes 27.9 % 11.0-4 7.0 normal Not Available [facility] [address] [place] [address], [address], 05/05/2021 10:32:29 05/05/19 22 05/05/2021 COMPL ETE BLOOD COUNT % monocytes 10.8 % 0.0-11 .0 normal Not Available [facility] [address] [place] [address], [address], 05/05/2021 10:32:29 05/05/19 22 05/05/2021 COMPL ETE BLOOD COUNT % eosinophils 1.9 % 0.0-7. 0 normal Not Available [facility] [address] [place] [address], [address], 05/05/2021 10:32:29 05/05/19 22 05/05/2021 COMPL ETE BLOOD COUNT % basophils 0.6 % 0.0-3. 0 normal Not Available [facility] [address] [place] [address], [address], 05/05/2021 10:32:29 05/05/19 22 05/05/2021 COMPL ETE BLOOD COUNT nucleated red cells 0.0 % 0.0-0. 9 normal Not Available [facility] [address] [place] [address], [address], 05/05/2021 10:32:29 05/05/19 22 05/05/2021 COMPL ETE BLOOD COUNT nucleated RBCs, absolute 0.00 K/uL not estab. normal Not Available [facility] [address] [place] [address], [address], 05/05/2021 10:32:29 05/05/19 22 05/05/2021 COMP. METAB OLIC PANEL glucose 98 mg/dL 74-100 normal Not Available [facility] [address] [place] [address], [address], 05/05/2021 11:23:14 05/05/19 22 05/05/2021 COMP. METAB OLIC PANEL blood urea nitrogen 15 mg/dL 6-20 normal Not Available [facility] [address] [place] [address], [address], 05/05/2021 11:23:14 05/05/19 22 05/05/2021 COMP. METAB OLIC PANEL creatinine 0.86 mg/dL 0.50-0 .95 normal Not Available [facility] [address] [place] [address], [address], 05/05/2021 11:23:14 05/05/19 22 05/05/2021 COMP. METAB OLIC PANEL BUN/creatini ne ratio 17 (calc ) 10-20 normal Not Available [facility] [address] [place] [address], [address], 05/05/2021 11:23:14 05/05/19 22 05/05/2021 COMP. METAB OLIC PANEL sodium 146 mmol/ L 136-14 5 high Not Available [facility] [address] [place] [address], [address], 05/05/2021 11:23:14 05/05/19 22 05/05/2021 COMP. METAB OLIC PANEL potassium 4.1 mmol/ L 3.4-5. 0 normal Not Available [facility] [address] [place] [address], [address], 05/05/2021 11:23:14 05/05/19 22 05/05/2021 COMP. METAB OLIC PANEL chloride 106 mmol/ L 98-107 normal Not Available [facility] [address] [place] [address], [address], 05/05/2021 11:23:14 05/05/19 22 05/05/2021 COMP. METAB OLIC PANEL carbon dioxide 29 mmol/ L 22-31 normal Not Available [facility] [address] [place] [address], [address], 05/05/2021 11:23:14 05/05/19 22 05/05/2021 COMP. METAB OLIC PANEL anion gap 11 (calc ) 7-25 normal Not Available [facility] [address] [place] [address], [address], 05/05/2021 11:23:14 05/05/19 22 05/05/2021 COMP. METAB OLIC PANEL calcium 9.6 mg/dL 8.6-10 .2 normal Not Available [facility] [address] [place] [address], [address], 05/05/2021 11:23:14 05/05/19 22 05/05/2021 COMP. METAB OLIC PANEL total protein 6.1 g/dL 6.4-8. 3 low Not Available [facility] [address] [place] [address], [address], 05/05/2021 11:23:14 05/05/19 22 05/05/2021 COMP. METAB OLIC PANEL albumin 4.3 g/dL 3.5-5. 2 normal Not Available [facility] [address] [place] [address], [address], 05/05/2021 11:23:14 05/05/19 22 05/05/2021 COMP. METAB OLIC PANEL globulin 1.8 g/dL_ (calc ) 1.5-4. 5 normal Not Available [facility] [address] [place] [address], [address], 05/05/2021 11:23:14 05/05/19 22 05/05/2021 COMP. METAB OLIC PANEL albumin/glob ulin ratio 2.4 (calc ) 1.1-2. 5 normal Not Available [facility] [address] [place] [address], [address], 05/05/2021 11:23:14 05/05/19 22 05/05/2021 COMP. METAB OLIC PANEL bilirubin, total 0.2 mg/dL 0.1-1. 2 normal Not Available [facility] [address] [place] [address], [address], 05/05/2021 11:23:14 05/05/19 22 05/05/2021 COMP. METAB OLIC PANEL alkaline phosphatase 80 U/L 30-121 normal Not Available [facility] [address] [place] [address], [address], 05/05/2021 11:23:14 05/05/19 22 05/05/2021 COMP. METAB OLIC PANEL AST 13 U/L 0-32 normal Not Available [facility] [address] [place] [address], [address], 05/05/2021 11:23:14 05/05/19 22 05/05/2021 COMP. METAB OLIC PANEL ALT 12 U/L 0-33 normal Not Available [facility] [address] [place] [address], [address], 05/05/2021 11:23:14 05/05/19 22 05/05/2021 COMP. METAB OLIC PANEL GFR 80 >= 60 normal Not Available [facility] [place], [address], 05/05/2021 11:23:14 05/05/19 22 05/05/2021 COMP. METAB [...] pedia tric patie nts refer to Pamela [facility] y Found ation https :[email or web address] [email or web address] rg/pr ofess ional s/KDO QI/gf r_cal culat orPed Not Available [facility] [address] [place] [address], [address], 05/05/2021 11:23:14 06/09/19 23 06/08/2022 COMPL ETE BLOOD COUNT white blood cells 7.1 K/uL 3.8-10 .8 normal Not Available [facility] [address] [place] [address], [address], 06/08/2022 11:21:18 06/09/19 23 06/08/2022 COMPL ETE BLOOD COUNT red blood cells 4.49 M/uL 3.80-5 .20 normal Not Available [facility] [address] [place] [address], [address], 06/08/2022 11:21:18 06/09/19 23 06/08/2022 COMPL ETE BLOOD COUNT hemoglobin 13.5 g/dL 12.0-1 6.0 normal Not Available [facility] [address] [place] [address], [address], 06/08/2022 11:21:18 06/09/19 23 06/08/2022 COMPL ETE BLOOD COUNT hematocrit 40.2 % 35.0-4 7.0 normal Not Available [facility] [address] [place] [address], [address], 06/08/2022 11:21:18 06/09/19 23 06/08/2022 COMPL ETE BLOOD COUNT MCV 90 fL 80-100 normal Not Available [facility] [address] [place] [address], [address], 06/08/2022 11:21:18 06/09/19 23 06/08/2022 COMPL ETE BLOOD COUNT MCH 30 pg 26-35 normal Not Available [facility] [address] [place] [address], [address], 06/08/2022 11:21:18 06/09/19 23 06/08/2022 COMPL ETE BLOOD COUNT MCHC 34 g/dL 32-36 normal Not Available [facility] [address] [place] [address], [address], 06/08/2022 11:21:18 06/09/19 23 06/08/2022 COMPL ETE BLOOD COUNT RDW 14.8 % 11.0-1 5.0 normal Not Available [facility] [address] [place] [address], [address], 06/08/2022 11:21:18 06/09/19 23 06/08/2022 COMPL ETE BLOOD COUNT MPV 6.8 fL 6.2-10 .5 normal Not Available [facility] [address] [place] [address], [address], 06/08/2022 11:21:18 06/09/19 23 06/08/2022 COMPL ETE BLOOD COUNT platelet count 311 K/uL 130-40 0 normal Not Available [facility] [address] [place] [address], [address], 06/08/2022 11:21:18 06/09/19 23 06/08/2022 COMPL ETE BLOOD COUNT neutrophil,a bsolute 5.0 K/uL 1.6-8. 4 normal Not Available [facility] [address] [place] [address], [address], 06/08/2022 11:21:18 06/09/19 23 06/08/2022 COMPL ETE BLOOD COUNT lymphocyte,a bsolute 1.4 K/uL 0.4-5. 1 normal Not Available [facility] [address] [place] [address], [address], 06/08/2022 11:21:18 06/09/19 23 06/08/2022 COMPL ETE BLOOD COUNT monocyte,abs olute 0.5 K/uL 0.0-1. 2 normal Not Available [facility] [address] [place] [address], [address], 06/08/2022 11:21:18 06/09/19 23 06/08/2022 COMPL ETE BLOOD COUNT eosinophil,a bsolute 0.1 K/uL 0.0-0. 8 normal Not Available [facility] [address] [place] [address], [address], 06/08/2022 11:21:18 06/09/19 23 06/08/2022 COMPL ETE BLOOD COUNT basophil,abs olute 0.0 K/uL 0.0-0. 3 normal Not Available [facility] [address] [place] [address], [address], 06/08/2022 11:21:18 06/09/19 23 06/08/2022 COMPL ETE BLOOD COUNT % neutrophils 71.5 % 42.0-7 8.0 normal Not Available [facility] [address] [place] [address], [address], 06/08/2022 11:21:18 06/09/19 23 06/08/2022 COMPL ETE BLOOD COUNT % lymphocytes 19.3 % 11.0-4 7.0 normal Not Available [facility] [address] [place] [address], [address], 06/08/2022 11:21:18 06/09/19 23 06/08/2022 COMPL ETE BLOOD COUNT % monocytes 7.5 % 0.0-11 .0 normal Not Available [facility] [address] [place] [address], [address], 06/08/2022 11:21:18 06/09/19 23 06/08/2022 COMPL ETE BLOOD COUNT % eosinophils 1.1 % 0.0-7. 0 normal Not Available [facility] [address] [place] [address], [address], 06/08/2022 11:21:18 06/09/19 23 06/08/2022 COMPL ETE BLOOD COUNT % basophils 0.6 % 0.0-3. 0 normal Not Available [facility] [address] [place] [address], [address], 06/08/2022 11:21:18 06/09/19 23 06/08/2022 COMPL ETE BLOOD COUNT nucleated red cells 0.1 % 0.0-0. 9 normal Not Available [facility] [address] [place] [address], [address], 06/08/2022 11:21:18 06/09/19 23 06/08/2022 COMPL ETE BLOOD COUNT nucleated RBCs, absolute 0.01 K/uL not estab. normal Not Available [facility] [address] [place] [address], [address], 06/08/2022 11:21:18 06/09/19 23 06/08/2022 COMP. METAB OLIC PANEL glucose 127 mg/dL 74-100 high Not Available [facility] [address] [place] [address], [address], 06/08/2022 11:49:27 06/09/19 23 06/08/2022 COMP. METAB OLIC PANEL blood urea nitrogen 11 mg/dL 6-20 normal Not Available [facility] [address] [place] [address], [address], 06/08/2022 11:49:27 06/09/19 23 06/08/2022 COMP. METAB OLIC PANEL creatinine 0.80 mg/dL 0.50-0 .95 normal Not Available [facility] [address] [place] [address], [address], 06/08/2022 11:49:27 06/09/19 23 06/08/2022 COMP. METAB OLIC PANEL BUN/creatini ne ratio 14 (calc ) 10-20 normal Not Available [facility] [address] [place] [address], [address], 06/08/2022 11:49:27 06/09/19 23 06/08/2022 COMP. METAB OLIC PANEL sodium 142 mmol/ L 136-14 5 normal Not Available [facility] [address] [place] [address], [address], 06/08/2022 11:49:27 06/09/19 23 06/08/2022 COMP. METAB OLIC PANEL potassium 4.1 mmol/ L 3.4-5. 0 normal Not Available [facility] [address] [place] [address], [address], 06/08/2022 11:49:27 06/09/19 23 06/08/2022 COMP. METAB OLIC PANEL chloride 104 mmol/ L 98-107 normal Not Available [facility] [address] [place] [address], [address], 06/08/2022 11:49:27 06/09/19 23 06/08/2022 COMP. METAB OLIC PANEL carbon dioxide 27 mmol/ L 22-31 normal Not Available [facility] [address] [place] [address], [address], 06/08/2022 11:49:27 06/09/19 23 06/08/2022 COMP. METAB OLIC PANEL anion gap 11 (calc ) 7-25 normal Not Available [facility] [address] [place] [address], [address], 06/08/2022 11:49:27 06/09/19 23 06/08/2022 COMP. METAB OLIC PANEL calcium 9.8 mg/dL 8.6-10 .2 normal Not Available [facility] [address] [place] [address], [address], 06/08/2022 11:49:27 06/09/19 23 06/08/2022 COMP. METAB OLIC PANEL total protein 7.2 g/dL 6.4-8. 3 normal Not Available [facility] [address] [place] [address], [address], 06/08/2022 11:49:27 06/09/19 23 06/08/2022 COMP. METAB OLIC PANEL albumin 4.1 g/dL 3.5-5. 2 normal Not Available [facility] [address] [place] [address], [address], 06/08/2022 11:49:27 06/09/19 23 06/08/2022 COMP. METAB OLIC PANEL globulin 3.1 g/dL_ (calc ) 1.5-4. 5 normal Not Available [facility] [address] [place] [address], [address], 06/08/2022 11:49:27 06/09/19 23 06/08/2022 COMP. METAB OLIC PANEL albumin/glob ulin ratio 1.3 (calc ) 1.1-2. 5 normal Not Available [facility] [address] [place] [address], [address], 06/08/2022 11:49:27 06/09/19 23 06/08/2022 COMP. METAB OLIC PANEL bilirubin, total 0.3 mg/dL 0.1-1. 2 normal Not Available [facility] [address] [place] [address], [address], 06/08/2022 11:49:27 06/09/19 23 06/08/2022 COMP. METAB OLIC PANEL alkaline phosphatase 78 U/L 30-121 normal Not Available [facility] [address] [place] [address], [address], 06/08/2022 11:49:27 06/09/19 23 06/08/2022 COMP. METAB OLIC PANEL AST 15 U/L 0-32 normal Not Available [facility] [address] [place] [address], [address], 06/08/2022 11:49:27 06/09/19 23 06/08/2022 COMP. METAB OLIC PANEL ALT 14 U/L 0-33 normal Not Available [facility] [address] [place] [address], [address], 06/08/2022 11:49:27 06/09/19 23 06/08/2022 COMP. METAB OLIC PANEL GFR 79 >= 60 normal NOT E New calcu latio n for GFR (CKD- EPI 2020) is formu lated witho ut race adjus tment facto rs at the recom menda tion of the [facility] and [facility] [employer]r o[facility]y . This calcu latio n has not been valid ated in pregn ant women . For pedia tric patie nts refer to https :[email or web address] [email or web address] rg/pr ofess ional s/KDO QI/gf r_cal culat orPed Not Available [facility] [address] [place] [address], [address], 06/08/2022 11:49:27 06/14/19 24 06/14/2023 COMPL ETE BLOOD COUNT white blood cells 7.8 10*3/ uL 3.8-10 .8 normal Not Available [facility] [address] [place] [address], [address], 06/14/2023 09:41:31 06/14/19 24 06/14/2023 COMPL ETE BLOOD COUNT red blood cells 4.69 10*6/ uL 3.80-5 .20 normal Not Available [facility] [address] [place] [address], [address], 06/14/2023 09:41:31 06/14/19 24 06/14/2023 COMPL ETE BLOOD COUNT hemoglobin 13.7 g/dL 12.0-1 6.0 normal Not Available [facility] [address] [place] [address], [address], 06/14/2023 09:41:31 06/14/19 24 06/14/2023 COMPL ETE BLOOD COUNT hematocrit 41.9 % 35.0-4 7.0 normal Not Available [facility] [address] [place] [address], [address], 06/14/2023 09:41:31 06/14/19 24 06/14/2023 COMPL ETE BLOOD COUNT MCV 90 fL 80-100 normal Not Available [facility] [address] [place] [address], [address], 06/14/2023 09:41:31 06/14/19 24 06/14/2023 COMPL ETE BLOOD COUNT MCH 29 pg 26-35 normal Not Available [facility] [address] [place] [address], [address], 06/14/2023 09:41:31 06/14/19 24 06/14/2023 COMPL ETE BLOOD COUNT MCHC 33 g/dL 32-36 normal Not Available [facility] [address] [place] [address], [address], 06/14/2023 09:41:31 06/14/19 24 06/14/2023 COMPL ETE BLOOD COUNT RDW 13.8 % 11.0-1 5.0 normal Not Available [facility] [address] [place] [address], [address], 06/14/2023 09:41:31 06/14/19 24 06/14/2023 COMPL ETE BLOOD COUNT MPV 7.4 fL 6.2-10 .5 normal Not Available [facility] [address] [place] [address], [address], 06/14/2023 09:41:31 06/14/19 24 06/14/2023 COMPL ETE BLOOD COUNT platelet count 266 10*3/ uL 150-40 0 normal Not Available [facility] [address] [place] [address], [address], 06/14/2023 09:41:31 06/14/19 24 06/14/2023 COMPL ETE BLOOD COUNT neutrophil,a bsolute 5.4 10*3/ uL 1.6-8. 4 normal Not Available [facility] [address] [place] [address], [address], 06/14/2023 09:41:31 06/14/19 24 06/14/2023 COMPL ETE BLOOD COUNT lymphocyte,a bsolute 1.5 10*3/ uL 0.4-5. 1 normal Not Available [facility] [address] [place] [address], [address], 06/14/2023 09:41:31 06/14/19 24 06/14/2023 COMPL ETE BLOOD COUNT monocyte,abs olute 0.7 10*3/ uL 0.0-1. 2 normal Not Available [facility] [address] [place] [address], [address], 06/14/2023 09:41:31 06/14/19 24 06/14/2023 COMPL ETE BLOOD COUNT eosinophil,a bsolute 0.1 10*3/ uL 0.0-0. 8 normal Not Available [facility] [address] [place] [address], [address], 06/14/2023 09:41:31 06/14/19 24 06/14/2023 COMPL ETE BLOOD COUNT basophil,abs olute 0.1 10*3/ uL 0.0-0. 3 normal Not Available [facility] [address] [place] [address], [address], 06/14/2023 09:41:31 06/14/19 24 06/14/2023 COMPL ETE BLOOD COUNT % neutrophils 69.2 % 42.0-7 8.0 normal Not Available [facility] [address] [place] [address], [address], 06/14/2023 09:41:31 06/14/19 24 06/14/2023 COMPL ETE BLOOD COUNT % lymphocytes 19.8 % 11.0-4 7.0 normal Not Available [facility] [address] [place] [address], [address], 06/14/2023 09:41:31 06/14/19 24 06/14/2023 COMPL ETE BLOOD COUNT % monocytes 9.4 % 0.0-11 .0 normal Not Available [facility] [address] [place] [address], [address], 06/14/2023 09:41:31 06/14/19 24 06/14/2023 COMPL ETE BLOOD COUNT % eosinophils 0.9 % 0.0-7. 0 normal Not Available [facility] [address] [place] [address], [address], 06/14/2023 09:41:31 06/14/19 24 06/14/2023 COMPL ETE BLOOD COUNT % basophils 0.7 % 0.0-3. 0 normal Not Available [facility] [address] [place] [address], [address], 06/14/2023 09:41:31 06/14/19 24 06/14/2023 COMPL ETE BLOOD COUNT nucleated red cells 0.1 % 0.0-0. 9 normal Not Available [facility] [address] [place] [address], [address], 06/14/2023 09:41:31 06/14/19 24 06/14/2023 COMPL ETE BLOOD COUNT nucleated RBCs, absolute 0.01 10*3/ uL not estab. normal Not Available [facility] [address] [place] [address], [address], 06/14/2023 09:41:31 06/14/19 24 06/14/2023 COMP. METAB OLIC PANEL glucose 119 mg/dL 74-100 high Not Available [facility] [address] [place] [address], [address], 06/14/2023 10:15:25 06/14/19 24 06/14/2023 COMP. METAB OLIC PANEL blood urea nitrogen 13 mg/dL 6-20 normal Not Available [facility] [address] [place] [address], [address], 06/14/2023 10:15:25 06/14/19 24 06/14/2023 COMP. METAB OLIC PANEL creatinine 0.82 mg/dL 0.50-0 .95 normal Not Available [facility] [address] [place] [address], [address], 06/14/2023 10:15:25 06/14/19 24 06/14/2023 COMP. METAB OLIC PANEL BUN/creatini ne ratio 16 (calc ) 10-20 normal Not Available [facility] [address] [place] [address], [address], 06/14/2023 10:15:25 06/14/19 24 06/14/2023 COMP. METAB OLIC PANEL sodium 146 mmol/ L 136-14 5 high Not Available [facility] [address] [place] [address], [address], 06/14/2023 10:15:25 06/14/19 24 06/14/2023 COMP. METAB OLIC PANEL potassium 3.9 mmol/ L 3.4-5. 0 normal Not Available [facility] [address] [place] [address], [address], 06/14/2023 10:15:25 06/14/19 24 06/14/2023 COMP. METAB OLIC PANEL chloride 108 mmol/ L 98-107 high Not Available [facility] [address] [place] [address], [address], 06/14/2023 10:15:25 06/14/19 24 06/14/2023 COMP. METAB OLIC PANEL carbon dioxide 27 mmol/ L 22-31 normal Not Available [facility] [address] [place] [address], [address], 06/14/2023 10:15:25 06/14/19 24 06/14/2023 COMP. METAB OLIC PANEL anion gap 11 (calc ) 7-25 normal Not Available [facility] [address] [place] [address], [address], 06/14/2023 10:15:25 06/14/19 24 06/14/2023 COMP. METAB OLIC PANEL calcium 8.9 mg/dL 8.6-10 .2 normal Not Available [facility] [address] [place] [address], [address], 06/14/2023 10:15:25 06/14/19 24 06/14/2023 COMP. METAB OLIC PANEL total protein 6.4 g/dL 6.4-8. 3 normal Not Available [facility] [address] [place] [address], [address], 06/14/2023 10:15:25 06/14/19 24 06/14/2023 COMP. METAB OLIC PANEL albumin 3.8 g/dL 3.5-5. 2 normal Not Available [facility] [address] [place] [address], [address], 06/14/2023 10:15:25 06/14/19 24 06/14/2023 COMP. METAB OLIC PANEL globulin 2.6 1.5-4. 5 normal Not Available [facility] [address] [place] [address], [address], 06/14/2023 10:15:25 06/14/19 24 06/14/2023 COMP. METAB OLIC PANEL albumin/glob ulin ratio 1.5 (calc ) 1.1-2. 5 normal Not Available [facility] [address] [place] [address], [address], 06/14/2023 10:15:25 06/14/19 24 06/14/2023 COMP. METAB OLIC PANEL bilirubin, total 0.2 mg/dL 0.1-1. 2 normal Not Available [facility] [address] [place] [address], [address], 06/14/2023 10:15:25 06/14/19 24 06/14/2023 COMP. METAB OLIC PANEL alkaline phosphatase 77 U/L 30-121 normal Not Available [facility] [address] [place] [address], [address], 06/14/2023 10:15:25 06/14/19 24 06/14/2023 COMP. METAB OLIC PANEL AST 14 U/L 0-32 normal Not Available [facility] [address] [place] [address], [address], 06/14/2023 10:15:25 06/14/19 24 06/14/2023 COMP. METAB OLIC PANEL ALT 15 U/L 0-33 normal Not Available [facility] [address] [place] [address], [address], 06/14/2023 10:15:25 06/14/19 24 06/14/2023 COMP. METAB OLIC PANEL GFR 76 >= 60 normal NOT E New calcu latio n for GFR (CKD- EPI 2020) is formu lated witho ut race adjus tment facto rs at the recom menda tion of the [facility] at[facility] and [facility] ty of Nephr ology . This calcu latio n has not been valid ated in pregn ant women . For pedia tric patie nts refer to [email or web address] :[email or web address] [email or web address]/pr ofess ional s/KDO QI/gf r_cal culat orPed Not Available [facility] [address] [place] [address], [phone], 06/14/2023 10:15:25 03/15/2003/15/2019 MAMMO , scree russell, tomos ynthe sis, bilat eral, w/ CAD [place] [facility] [address] [place] [address] Patigavin t Name: MANA benito : 1949 Age: 69 years Patigavin benito 8 Orderi ng Provid [...] year. Result s were given to the kevan benito. Interp reted By: Diony francis MD Electr onical ly Signed By: Diony francis MD on 10:[address] Radiology [address], [phone], 03/15/2019 10:34:11 03/20/2003/20/2020 MAMMO , scree russell, tomos ynthe sis, bilat eral, w/ CAD [address] [address] Patigavin benito Name: MANA benito : 1949 [...] with previo us mammog deepti dated , 2017, 2016 FINDIN GS: There are scatte [...] s were mailed or given to the patien t. Interp reted By: Diony francis MD Electr onical ly Signed By: Diony francis MD on 2019 10:26 AM [email or web address] [facility] [address] [place] [address], [phone], 03/20/2020 14:00:50 05/05/19 22 05/05/2021 MAMMO , scree russell, tomos ynthe sis, bilat eral, w/ CAD [place] [address] [place] [address] Kevan benito Name: MANA benito : 1949 Age: 71 years Kevan benito 8 Orderi ng Provid er: TANISHA [...] s were mailed or given to the kevan rankin Interp reted By: Daylin Russell MD Electr onical ly Signed By: Daylin Russell MD on 022 9:44 AM [email or web address] [facility] [address] [place] [address], [place], [phone], 05/05/2021 10:01:15 06/09/19 23 06/08/2022 MAMMO , scree russell, tomos ynthe sis, bilat eral, w/ CAD [address] [place] [address] Kevan benito Name: MANA benito : 1949 Age: 72 years Patigavin benito 8 Orderi ng Provid [...] s were mailed or given to the kevan t. Interp reted By: Daylin Russell MD Electr onical ly Signed By: Daylin Russell MD on 06/09/19 10:44 AM [email or web address] [facility] [address] [place] [address], [place], [phone], 06/08/2022 10:52:08 06/14/19 24 06/14/2023 MAMMO , scree russell, tomos ynthe sis, bilat eral, w/ CAD [address] [address] Kevan benito Name: MANA benito : 1949 Age: 73 years Patigavin benito 8 Orderi ng Provid er: TANISHA HENDRICKS EXAM DATE: 2023 EXAM: MG SCREEN ING LEANA MAMMOG USZETTE INDICA TION: Screen ing. Histor y of [...] previo us mammog deepti dated 06/08/22 , 2 2, FINDIN GS: There are scatte red [...] s were mailed or given to the kevan benito. Interp reted By: Daylin Russell MD Electr onical ly Signed By: Daylin Russell MD on 06/14/19 9:54 AM [email or web address] [facility] [address], [address], 01/23/2024 13:25:10 Result Notes Documentation Provider Name and Address Organization Details Recorded Time Mammo, Screening, Tomosynthesis, Bilateral, W/ Cad : [place] [address] Patient Name: MANA BATES Patient : 1950 Age: 69 years Patient Ordering Provider: ARLENE HENDRICKS EXAM DATE: 03/15/2019 EXAM: MG SCREENING LEANA MAMMOGRAM INDICATION: Screening. History of breast cancer treated with breast conserving therapy. PROCEDURE: Multislice imaging of both breasts was performed in standard projections using [employer] Dimensions tomosynthesis equipment (3D mammography). 2D images [...] By: Diony Drake MD NE HENDRICKS MD [address] [place] [address], [phone], [facility] 03/15/2019 10:34:11 Mammo, Screening, Tomosynthesis, Bilateral, W/ Cad : [address] [address] Patient Name: MANA BATES Patient : 1950 Age: 70 years Patient Ordering Provider: ARLENE HENDRICKS EXAM DATE: 03/20/2020 EXAM: MG SCREENING LEANA MAMMOGRAM INDICATION: Screening. History of breast cancer treated with breast conserving therapy. PROCEDURE: Multislice imaging of both breasts was performed in standard projections using [employer] Radha Dimensions tomosynthesis equipment (3D mammography). 2D [...] By: Diony Drake MD NE HENDRICKS MD [address] [place], [place] [address] [place] [address] 03/20/2020 14:00:50 Mammo, Screening, Tomosynthesis, Bilateral, W/ Cad : [address] [address] Patient Name: MANA BATES Patient : 1950 Age: 71 years Patient Ordering Provider: ARLENE HENDRICKS EXAM DATE: 05/05/2021 EXAM: MG SCREENING LEANA MAMMOGRAM INDICATION: Screening. History of breast cancer treated with breast conserving therapy. PROCEDURE: Multislice imaging of both breasts was performed in standard projections using [employer] Radha Dimensions tomosynthesis equipment (3D mammography). 2D [...] the patient. Interpreted By: Daylin Russell MD NE HENDRICKS MD [address] [place] [address], [phone], [facility] 05/05/2021 10:01:16 Mammo, Screening, Tomosynthesis, Bilateral, W/ Cad : [address] [address] Patient Name: MANA BATES Patient : 1950 Age: 72 years Patient Ordering Provider: ARLENE HENDRICKS EXAM DATE: 06/08/2022 EXAM: MG SCREENING LEANA MAMMOGRAM INDICATION: Screening. History of breast cancer treated with breast conserving therapy. PROCEDURE: Multislice imaging of both breasts was performed in standard projections using [employer] Dimensions tomosynthesis equipment (3D mammography). 2D images [...] the patient. Interpreted By: Daylin Russell MD NE HENDRICKS MD [address] [place] [address], [phone], [facility] 06/08/2022 10:52:08 Mammo, Screening, Tomosynthesis, Bilateral, W/ Cad : [address] [address] Patient Name: MANA BATES Patient : 1950 Age: 73 years Patient Ordering Provider: ARLENE HENDRICKS EXAM DATE: 06/14/2023 EXAM: MG SCREENING LEANA MAMMOGRAM INDICATION: Screening. History of breast cancer treated with breast conserving therapy. PROCEDURE: Multislice imaging of both breasts was performed in standard projections using [employer] Radha Dimensions tomosynthesis equipment (3D mammography). 2D [...] the patient. Interpreted By: Daylin Russell MD Chip Latham [facility] 01/23/2024 13:25:10 Problems Name Problem SNOMED Code Status Onset Date Resolution Date Notes Provider Name and Address Organization Details Recorded Time Primary malignant neoplasm of female breast 37065945 Active 019 ARLENE HENDRICKS MD [address] [place] [address], [phone] [facility] 9 12:06:24 Problem Notes None recorded. Medical Equipment None Reported. Allergies Allergen ID Allergen Name Allergen Category Reaction Reaction Severity Criticality Documentation Date Start Date Code Code System Note Provider Name and Address Organization Details Recorded Time 669784 shellfish derived food,medi cation Not available Not available Not available 03/06/2019 [id number] UNJason Flores Marlow [facility] 9 13:21:38 Medications Name Sig Start Date Stop Date Status Note LastModified by Organization Details LastModified Time anastrozole 1 mg tablet TAKE ONE TABLET BY MOUTH ONCE A DAY active Not Available Not Available No t Available Xanax 0.5 mg tablet Take 1 tablet as needed by oral route. active Not Available Not Available No t Available olanzapine 10 mg tablet Take 1 tablet every day by oral route. 03/15 completed Not Available Not Available Not Available aspirin 81 mg tablet,delaye d release Take 1 tablet every day by oral route. active Not Available Not Available No t Available Lipitor 40 mg tablet Take 1 tablet every day by oral route. active Not Available Not Available No t Available olanzapine 15 mg tablet Take 1 tablet every day by oral route. active Not Available Not Available No t Available Depakote 500 mg tablet,delaye d release Take 1 tablet every day by oral route. active Not Available Not Available No t Available Caltrate-600 twice daily active Not Available Not Available No t Available Vitals Date Recorded Body height Body mass index (BMI) Body weight Body temperature Heart rate Oxygen saturation Oxygen saturation in Arterial blood by Pulse oximetry Systolic blood pressure Diastolic blood pressure Provider Name and Address Organization Details Last Updated DateTime 2 158.75 cm 31.8 kg/m2 78870.4 1 g 97.1 [degF] 84 /min 95 % 95 % 116 mm[Hg] 72 mm[Hg] Theodora Obregon [facility] 2 11:01:28 Date Recorded Body height Body mass index (BMI) Body weight Body temperature Heart rate Oxygen saturation Oxygen saturation in Arterial blood by Pulse oximetry Systolic blood pressure Diastolic blood pressure Provider Name and Address Organization Details Last Updated DateTime 3 157.48 cm 31.4 kg/m2 80300.4 5 g 98.4 [degF] 94 /min 91 % 91 % 105 mm[Hg] 58 mm[Hg] Diana Pollack [facility] 3 12:11:16 Date Recorded Body weight Body mass index (BMI) Body height Body temperature Heart rate Oxygen saturation Oxygen saturation in Arterial blood by Pulse oximetry Systolic blood pressure Diastolic blood pressure Provider Name and Address Organization Details Last Updated DateTime 9 06664.6 6 g 31.5 kg/m2 158.75 cm 98.1 [degF] 88 /min 95 % 95 % 110 mm[Hg] 70 mm[Hg] Flores Marlow [facility] 9 11:41:43 Date Recorded Body weight Body mass index (BMI) Body height Heart rate Oxygen saturation Oxygen saturation in Arterial blood by Pulse oximetry Systolic blood pressure Diastolic blood pressure Provider Name and Address Organization Details Last Updated DateTime 0 61450.4 7 g 31.4 kg/m2 158.75 cm 100 /min 98 % 98 % 130 mm[Hg] 82 mm[Hg] Felicita Delaney [facility] 0 10:42:07 Social History Question Answer Notes LastModified by Organizat ion Details LastModified Time Tobacco Smoking Status Former Smoker Flores Marlow [facility], [facility] 03/15/2019 11:36:53 How Much Tobacco Do You Chew? None [email or web address] Information not available 03/15/2019 Live Alone Or With Others? Alone [email or web address] Information not available 03/15/2019 Education Level Master [email or web address] Informati on not available 03/15/2019 Exposure To Smoke No Informa tion not available 03/15/2019 Marital Status Informatio n not available 03/15/2019 What Was The Date Of Your Most Recent Tobacco Screening? 05/05/2021 Information not available 05/05/2021 How Many Children Do You Have? 1 [email or web address] Information not available 03/15/2019 What Is Your Relationship Status? Information not available 05/05/2021 Has Tobacco Cessation Counseling Been Provided? No Information not available 05/05/2021 How Many Years Have You Smoked Tobacco? 40 [email or web address] Information not available 03/15/2019 Sex: Unknown Functional Status Question Answer Note LastModified by Organizat ion Details LastModified Time Do you use any illicit or recreational drugs? No Information not available 05/05/2021 Do you or have you ever used any other forms of tobacco or nicotine? No Information not available 05/05/2021 What is your level of alcohol consumption? None Information not available 03/15/2019 Do you or have you ever used smokeless tobacco? Never used smokeless tobacco Information not available 03/15/2019 What is your occupation? retired teacher [email or web address] Information not available 03/15/2019 Mental Status None recorded. Family History Relationship Description Onset Age of this Age Resolved Age Notes LastModified by Organization Details LastModified Time Father No current problems or disability [email or web address] Not available 03/15 11:37:25 Mother No current problems or disability Not available 03/15 11:37:25 Medical History Condition Response Cancer Y Depression Y Gynecological HistoryNo gynecological history recorded. Obstetrics History GPAL:G 0 P 0 0 0 0 Immunizations Vaccine Type Date Status Note Provider Nam e and Address Organization Details Recorded Time Influenza, split virus, quadrivalent, preservative 9 completed Floreshawa Marlow [facility] 03/15/2019 11:37:54 Influenza, high-dose, quadrivalent, PF 0 completed Felicita Delaney [facility] 03/20/2020 10:39:42 COVID-19, mRNA, LNP-S, PF, 100 mcg/0.5mL dose or 50 mcg/0.25mL dose 1 completed Theodora Obregon [facility] 05/05/2021 10:58:11 COVID-19, mRNA, LNP-S, PF, 100 mcg/0.5mL dose or 50 mcg/0.25mL dose 1 completed Theodora Obregon [facility] 05/05/2021 10:58:14 COVID-19, mRNA, LNP-S, PF, 100 mcg/0.5mL dose or 50 mcg/0.25mL dose 1 completed Theodora Obregon [facility] 05/05/2021 10:58:17 Influenza, high-dose, quadrivalent, PF 1 completed Theodoracodey Aggarwalin [facility] 05/05/2021 10:58:26 Past Encounters Encounter ID Performer Location Encounter Start Date Encounter Closed Date Diagnosis/Indication Diagnosis SNOMED-CT Code Diagnosis ICD10 Code Diagnosis Note [id number] SHAY TORO MD [facility] [address] [place] [address] 03/31/2016 09:21:07 04/14/2016 15:32:35 [id number] DAYLIN ROTHMAN JR, MD GENERAL SURGERY [address] [place] [address] 03/31/2016 11:46:54 03/31/2016 17:01:20 [id number] ARLENE HENDRICKS MD [facility] [address] [place] [address] 07/07/2016 09:11:06 07/07/2016 10:44:27 [id number] ARLENE HENDRICKS MD [facility] [address] [place] [address] 11/10/2016 10:48:23 11/10/2016 12:16:27 [id number] DAYLIN ROTHMAN JR, MD GENERAL SURGERY [place] [address] [place] [address] 03/07/2017 12:21:49 03/07/2017 15:07:41 [id number] ARLENE HENDRICKS MD [facility] [address] [place] [address] 05/24/2017 10:47:29 05/24/2017 12:06:07 [id number] ARLENE HENDRICKS MD [facility] [address] [place] [address] 11/22/2017 10:18:42 11/22/2017 12:49:15 [id number] ARLENE HENDRICKS MD [facility] [address] [place] [address] 03/09/2018 11:27:20 03/09/2018 12:07:24 [id number] ARLENE HENDRICKS MD HEM/ONC [facility] CLOS[facility] [address] [place] [address] 03/15/2019 10:47:42 03/15/2019 12:14:56 Primary malignant neoplasm of female breast 93242749 C50.043 [id number] ARLENE HENDRICKS MD HEM/ONC [facility] [address] [place] [address] 03/20/2020 10:32:08 03/20/2020 11:18:55 Primary malignant neoplasm of female breast 05443386 C50.790 [id number] ARLENE HENDRICKS MD HEM/ONC [facility]OSED [address] [place] [address] 05/05/2021 10:38:27 05/05/2021 11:48:11 Primary malignant neoplasm of female breast 92492302 C50.819 [id number] ARLENE HENDRICKS MD HEM/ONC [facility] [address] [place] [address] 06/08/2022 11:33:05 06/08/2022 12:38:37 Primary malignant neoplasm of female breast 13146138 C50.819 [id number] MD TAMIKO RODRIGUEZ [facility] [address] [place] [address] 07/29/2022 13:26:54 07/29/2022 14:53:39 [id number] MD TAMIKO RODRIGUEZ [facility] [address] [place] [address] 11/07/2022 11:35:17 11/07/2022 12:40:44 [id number] ARLENE BAILEY MD [facility]TH[facility]EDI [facility] CL[facility] [address] [place] [address] 09/06/2023 10:27:07 09/06/2023 11:13:04 Health Concerns Section Related Observation LastModified by Organization Detai ls LastModified Time None Recorded Concern Status LastModified by Organization Details LastModified Time None Recorded Advance Directives Directive None Recorded Payers Insurance Date Sequence Insurance Name Policy Number Policy Escudero Covered Member ID Escudero Member ID Guarantor Name 12/14/2017 2 [place] Mana E Bates 06/19/2024 3 [place] 111 Ta B Bates [id number] Mana E Bates 03/04/2020 1 [place] 112 Mana E Bates [id number] Mana E Bates 06/25/2024 2 [place] Mana E Bates [id number] Mana E Bates 06/19/2024 1 [place] Mana E Bates [id number] Mana E Bates Notes Date Note Type Note Provider Name and Address Organization Details Recorded Time 9 text/html HPIReported bypatient.Advanced Directives / BioBank AuthorizationsAdvanced Directives? YES Dischargedischarge mode ambulatory; discharge disposition stable Distress ScreeningHas the distress screening been completed in the last 45 days? NO; Distress level 0 no stress Practical Problemsno practical problems Family Problemsno family problems Emotional Problemsno emotional problems Spiritual/Religiousspiritua l/catholic problems? NO Physical Problemsweight gain;fatigue Nutrition ScreeningNutrition Screening NO; Nutrition counseling last 6 months? NO This is a 69-year-old female, more than four and a half years out from diagnosis of T1c, N0, M0, ER positive, HER2/maria luz positive breast cancer. She underwent partial mastectomy. She had TCH chemotherapy and had a full year's worth of Herceptin without any major issues. All of her Herceptin was completed in February 2016. After systemic chemotherapy, she was placed on drug Arimidex and she has continued to tolerate this. We did have a few areas of fatty necrosis that were noted and proven on biopsy. Otherwise she has done well. She returns today without any major complaints. She has had her mammogram done today that is BIRADS 2. Laboratory studies, CBC and CMP are largely unremarkable. ARLENE HENDRICKS MD [address] [place] [address], [phone], [facility] 03/21/2019 18:24:43 0 text/html HPIReported bypatient.Advanced Directives / BioBank AuthorizationsAdvanced Directives? YES Dischargedischarge mode ambulatory; discharge disposition stable Distress ScreeningHas the distress screening been completed in the last 45 days? NO; Distress level 0 no stress Practical Problemsno practical problems Family Problemsno family problems Emotional Problemsno emotional problems Spiritual/Religiousspiritua l/catholic problems? NO Physical Problemsweight gain;fatigue Nutrition ScreeningNutrition Screening NO; Nutrition counseling last 6 months? NO This is a 70-year-old female, now 5-1/2 years out with a diagnosis of a breast cancer as T1c, N0, M0, ER positive, HER-2 positive cancer. She had a partial mastectomy. She had TCH chemotherapy and a year's worth of Herceptin, given adjuvantly. All Herceptin was completed in February of 2016. She has been on Arimidex without any incident. At this point, she does have a known history of osteopenia, is on Prolia for this and her primary team has been watching her bone density. She returns today without any major complaints. Her labs, CBC and CMP are unremarkable. Her mammogram done today is a screening mammogram, is a BI-RADS 2. ARLENE HENDRICKS MD [address] [place] [address], [phone], [facility] 03/24/2020 08:59:58 2 text/html [place] HPIReported bypatient.Advanced Directives / BioBank AuthorizationsAdvanced Directives? YES Dischargedischarge mode ambulatory; discharge disposition stable Distress ScreeningHas the distress screening been completed in the last 45 days? NO; Distress level 0 no stress Practical Problemsno practical problems Family Problemsno family problems Emotional Problemsno emotional problems Spiritual/Religiousspiritua l/catholic problems? NO Physical Problemsweight gain;fatigue Nutrition ScreeningNutrition Screening NO; Nutrition counseling last 6 months? NO This is a 71-year-old female, now more than 6 years from a diagnosis of a left-sided breast cancer, quadrant unspecified. She was diagnosed with a T1c, N0, M0, ER positive, HER-2 positive breast cancer. She underwent a partial mastectomy. She had [facility] chemotherapy, adjuvant radiation as well as full 4 years worth of Herceptin as well. All Herceptin was completed in February 2016. Since around August 2015, she has been on Arimidex. We had felt because of her HER-2 positivity that she would benefit from probably 7 years worth of adjuvant hormonal therapy after her chemotherapy and Herceptin as well. She returns today. Her mammogram was good as a BI-RADS 2. Her labs, CBC and CMP are unremarkable. On her CMP, everything is normal except for sodium says is 146 and her total protein is 6.1. The high level on our sodium is 145. Clinically, otherwise she is doing well. She has had several family members who have gotten COVID and she says that she has no new issues. ARLENE HENDRICKS MD [address] [place] [address], [phone], [facility] 05/07/2021 08:29:08 3 text/html [place] HPIReported bypatient.Advanced Directives / BioBank AuthorizationsAdvanced Directives? YES Dischargedischarge mode ambulatory; discharge disposition stable Distress ScreeningHas the distress screening been completed in the last 45 days? NO; Distress level 0 no stress Practical Problemsno practical problems Family Problemsno family problems Emotional Problemsno emotional problems Spiritual/Religiousspiritua l/catholic problems? NO Physical Problemsweight gain;fatigue Nutrition ScreeningNutrition Screening NO; Nutrition counseling last 6 months? NO This is a 72-year-old female, now more than 6-1/2 years out from a left-sided breast cancer. She had a T1c, N0 disease. It was ER positive, but also HER-2 positive. She had a partial mastectomy. She had [facility] adjuvant chemotherapy. She underwent radiation and then a complete year's worth of Herceptin. All Herceptin completed in February 2016. She was then initially placed on the drug Arimidex which she has now completed 6-1/2 years of this. Our goal is to do 7 full years. She has a great attitude and is doing well. Today's mammogram is a BI-RADS 2 and her basic labs, CBC and CMP were unremarkable. ARLENE HENDRICKS MD [facility] [place], [address], [facility] 06/10/2022 10:57:55 OBGyn Episode No OBEpisode recorded.
--- OUTSIDE RECORDS SUMMARY | 2024-09-30 12:47 | XMS_ITS | Clinical Summary ---
Author Organization Healthcare Address [address] [place] [address] Care Team Providers Care Assistant District Attorney Name Role Phone Philipp Pacheco MD Unavailable [phone] Jarrett Hutchison MD Primary Care Provider [phone] Allergies Active Allergy Reactions Criticality Noted Date Comments Shellfish Allergy Unknown - Patient st ates they do not know rxn details Low 06/30/2020 Sulfa Drugs Unknown - Patient st ates they do not know rxn details Low 06/18/2020 Medications OLANZapine (ZyPREXA) 15 MG tablet 1 tablet (15 mg) 1 (one) time each day. 05/18/2020 Active Dulera 100-5 MCG/ACT inhaler 05/04/2020 Act maria elena levothyroxine (Synthroid, Levoxyl) 88 MCG tablet 1 tablet (88 mcg). 05/29/2023 Active Icosapent Ethyl (Vascepa) 1 g capsule 04/28/2023 Active divalproex (Depakote) [address] tablet 1 tablet (500 mg). Active cholecalciferol (Vitamin D-3) 125 MCG (5000 UT) capsule 1 capsule (5,000 Units). 06/30/2020 Active aspirin 81 MG EC tablet 1 tablet (81 mg) 1 (one) time each day. Active Lipitor 40 MG tablet 1 tablet (40 mg). 04/29/2020 Active Xanax 0.5 MG tablet 1 tablet (0.5 mg). 05/08/2020 Active Active Problems Problem Noted Date Diagnosed Date Malignant neoplasm of left b reast in female, estrogen receptor positive 06/16/2023 Family History Medical History Relation Name Comments Hypertension Mother Stroke Mother Stroke Other 1 Hypertension Other 2 Relation Name Status Comments Mother Other 1 Other 2 Social History Tobacco Use Types Packs/Day Years Used Date Smoking Tobacco: Former Passive Smoke Exposure: Past Smokeless Tobacco: Never Tobacco Cessation:Counseling Given: Not Answered Comments:Quit 5 years ago. Alcohol Use Standard Drinks/Week Comments No 0 (1 standard drink = 0.6 oz pur e alcohol) Comments Unknown Sex and Gender Information Value Date Recorded Sex Assigned at Not on file Legal Sex Female 7:35 PM EDT Gender Identity Not on file Sexual Orientation Not on file Last Filed Vital Signs Vital Sign Reading Time Taken Comments Blood Pressure 111/69 06/14/2023 11:51 AM EST Pulse 94 06/14/2023 11:51 AM EST Temperature 36 C (96.8 F) 06/14/2023 11:51 AM EST Respiratory Rate - - Oxygen Saturation 93% 06/14/2023 11:51 AM EST Inhaled Oxygen Concentration - - Weight 80.9 kg (178 lb 5.6 oz) 06/14/2023 11:51 AM EST Height 157.5 cm (5' 2 ) 06/14/2023 11:51 AM EST Body Mass Index 32.62 06/14/2023 11:51 AM EST Plan of Treatment Health Maintenance Due Date Last Done Comments [facility]-Bone Density Scan 1952 [facility]-Depression Screening 1952 [facility]-Hepatitis C Screening 1950 [facility]-Medicare Annual Wellness (AWV) 1950 [facility]-/Child/Adol SDOH Screenings 1950 [facility]Y-Obesity Intervention 01/27/1958 UKY- SDOH Screenings 01/27/1970 UKY-Adult SDOH Screenings 01/27/1970 UKY-DTaP,Tdap,and Td Vaccines (1 - Tdap) 01/27/1971 UKY-Pneumococcal Vaccine: 50+ Years (1 of 2 - PCV) 01/27/1971 UKY-Zoster Vaccines (1 of 2) 01/27/1971 CT Colonography 01/27/1997 Colonoscopy 01/27/1997 FIT-DNA 01/27/1997 FIT 01/27/1997 FOBT 01/27/1997 Sigmoidoscopy 01/27/1997 UKY-Colorectal Cancer Screening 01/27/1997 UKY-RSV Vaccine: 60+ Years or (1 - Risk 60-74 years 1-dose series) 2012 [id number] Vaccine ( season) 2023 04/06/2021, 01/08/2021, 08/28/2020, Additional history exists UKY-Influenza Vaccine (Season Ended) 2024 05/31/2023, 01/08/2021, 01/14/2020, Additional history exists HPV Vaccines Aged Out No longer eligi ble based on patient's age to complete this topic UKY-HIB Vaccines Aged Out No longer e ligible based on patient's age to complete this topic UKY-Hepatitis A Vaccines Aged Out No longer eligible based on patient's age to complete this topic UKY-IPV Vaccines Aged Out No longer e ligible based on patient's age to complete this topic UKY-Rotavirus Vaccines Aged Out No lo nger eligible based on patient's age to complete this topic Insurance [facility] Care Teams Assistant District Attorney Relationship Specialty Start Date End Date Jarrett Hutchison MD [address] [place] [address] 1 [place] [address] PCP - General Family Medicine 06/14/23 Philipp Pacheco MD [address] [place] [address] Medical Oncologist Hematology and Oncology 06/14/23
--- OUTSIDE RECORDS SUMMARY | 2024-09-30 12:48 | XMS_ITS | Encounter Summary ---
Author Organization Healthcare Address [address] [place] [address] Care Team Providers Care Tax Assessor Name Role Phone TrellSamia Vickie GRIDER Primary Care Provider [phone] Janusz Robertson MD Primary Care Provider [phone] Philipp Pacheco MD Unavailable [phone] Jarrett Hutchison MD Primary Care Provider Encounter Details Date Type Department Care Team (Late st Contact Info) Description 06/08/2022 Orders Only [facility] [address] [place] [address] Philipp Pacheco MD [address] [address] Social History Tobacco Use Types [...] Diagnosis Comments CBC WITH AUTO DIFFERENTIAL Routine 06/08/2022 11:08 AM EST documented in this encounter Results * CBC and Differential (06/08/2022 11:08 AM EST) External WBC 7.1 3.8 - 10.8 K/uL [facility] External Red Blood Cell (RBC) 4.49 3.80 - 5.20 M/uL [facility] External Hemoglobin 13.5 12.0 - 16.0 G/DL [facility] External Hematocrit 40.2 35.0 - 47.0 % [facility] External MCV 90 80 - 100 fL [facility] External MCH 30 26 - 35 PG [facility] External MCHC 34 32 - 36 G/DL [facility] External RDW 14.8 11.0 - 15.0 % [facility] External Mean Platelet Volume 6.8 6.2 - 10.5 fL [facility] External Platelets 311 130 - 400 K/uL [facility] External Neutrophil# 5.0 1.6 - 8.4 K/uL [facility] External Lymphocyte# 1.4 0.4 - 5.1 K/uL [facility] External Absolute Monocyte (Abs [place]) 0.5 0.0 - 1.2 K/uL [facility] External Eosinophils# 0.1 0.0 - 0.8 K/uL [facility] External Baso# 0.0 0.0 - 0.3 K/uL [facility] External Neutrophils % 71.5 42.0 - 78.0 % [facility] External Lymphocyte % 19.3 11.0 - 47.0 % [facility] External Monocyte % 7.5 0.0 - 11.0 % [facility] External Eosinophil% 1.1 0.0 - 7.0 % [facility] External Basophil % 0.6 0.0 - 3.0 % [facility] External Nucleated RBC%-Auto 0.1 0.0 - 0.9 % [facility] External Nucleated RBC Absolute 0.01 Not Estab. K/uL [facility] 06/08/2022 11:0 8 AM EST 06/08/2022 11:18 AM EST Philipp Pacheco MD LAB BLOOD ORDERABLES Final Res ult [facility] [address] [place] [address], documented in this encounter Visit Diagnoses Not on filedocumented in this encounter Care Teams Tax Assessor Relationship Specialty Start Date End Date Samia Cai APRN [address] [place] [address] PCP - General 08/21/20 06/11/23 Janusz Robertson MD [address] [place] [address] PCP - General 06/12/23 06/13/23 Jarrett Hutchison MD [address] [place] [address] PCP - General Family Medicine 06/14/23 Philipp Pacheco MD [address] [place] [address] Medical Oncologist Hematology and Oncology 06/14/23 documented as of this encounter
--- OUTSIDE RECORDS SUMMARY | 2024-09-30 12:48 | XMS_ITS | Encounter Summary ---
Author Organization Healthcare Address [address] [place] [address] Care Team Providers Care Unit Operator Name Role Phone TrellSamia Vickie GRIDER Primary Care Provider [phone] Janusz Robertson MD Primary Care Provider [phone] Philipp Pacheco MD Unavailable [phone] Jarrett Hutchison MD Primary Care Provider [phone] Encounter Details Date Type Department Care Team (Late st Contact Info) Description 06/08/2022 Orders Only [facility] at [facility] [address] [place] [address] Philipp Pacheco MD [address] [address] Social History Tobacco Use Types [...] Procedure Name Priority Date/Time Associated Diagnosis Comments COMPREHENSIVE METABOLIC PANEL, PLASMA Routine 06/08/2022 11:08 AM EST documented in this encounter Results * (ABNORMAL) Comprehensive Metabolic Panel, Plasma (06/08/2022 11:08 AM EST) External Glucose 127(H) 74 - 100 mg/dL [facility] External BUN 11 6 - 20 mg/dL [facility] External Creatinine Blood 0.80 0.50 - 0.95 mg/dL [facility] External BUN/Creat Ratio 14 10 - 20 (calc) [facility] External Sodium 142 136 - 145 mmol/L [facility] External Potassium 4.1 3.4 - 5.0 mmol/L [facility] External Chloride 104 98 - 107 mmol/L [facility] External Carbon Dioxide 27 22 - 31 mmol/L [facility] External Anion Gap (AG) 11 7 - 25 (calc) [facility] External Calcium 9.8 8.6 - 10.2 mg/dL [facility] External Total Protein 7.2 6.4 - 8.3 g/dL [facility] External Albumin 4.1 3.5 - 5.2 g/dL [facility] External Globulin 3.1 1.5 - 4.5 g/dL (calc) [facility] External Albumin/Globulin Ratio 1.3 1.1 - 2.5 (calc) [facility] External Bilirubin Total 0.3 0.1 - 1.2 mg/dL [facility] External Alkaline Phosphatase 78 30 - 121 U/L [facility] External AST (SGOT) 15 0 - 32 U/L [facility] External ALT (SGPT) 14 0 - 33 U/L [facility] External Estimated GFR 79 >=60 [facility] Comment: NOTE New calculation for GFR (CKD-EPI 2020) is formulated without race adjustment factors at the recommendation of the National Kidney Foundation and [employer] [place] Society of Nephrology. This calculation has not been validated in women. For pediatric patients refer to https://www.kidney.org/professionals/KDOQI/gfr_calculatorPed 06/08/2022 11:0 8 AM EST 06/08/2022 11:18 AM EST us Philipp Pacheco MD LAB BLOOD ORDERABLES Final Res ult [facility] [address] [place] [address], documented in this encounter Visit Diagnoses Not on filedocumented in this encounter Care Teams Unit Operator Relationship Specialty Start Date End Date Samia Cai APRN [address] [place] [address] [id number] PCP - General 08/21/20 06/11/23 Janusz Robertson MD [address] [place] [address] PCP - General 06/12/23 06/13/23 Jarrett Hutchison MD [address] [place] [address] PCP - General Family Medicine 06/14/23 Philipp Pacheco MD [address] [place] [address] Medical Oncologist Hematology and Oncology 06/14/23 documented as of this encounter
--- OUTSIDE RECORDS SUMMARY | 2024-09-30 12:48 | XMS_ITS | Encounter Summary ---
Author Organization Healthcare Address [address] [place] [address] Care Team Providers Care Box Shook Patcher Name Role Phone TrellSamia Vickie GRIDER Primary Care Provider [phone] Janusz Robertson MD Primary Care Provider [phone] Philipp Pacheco MD Unavailable [phone] Jarrett Hutchison MD Primary Care Provider [phone] Encounter Details Date Type Department Care Team (Late st Contact Info) Description 05/05/2021 Orders Only [facility] at [facility] [address] [place] [address] Philipp Pacheco MD [address] [address] Social History Tobacco Use Types [...] Diagnosis Comments COMPREHENSIVE METABOLIC PANEL, PLASMA Routine 05/05/2021 10:09 AM EST documented in this encounter Results * (ABNORMAL) Comprehensive Metabolic Panel, Plasma (05/05/2021 10:09 AM EST) External Glucose 98 74 - 100 mg/dL [facility] External BUN 15 6 - 20 mg/dL [facility] External Creatinine Blood 0.86 0.50 - 0.95 mg/dL [facility] External BUN/Creat Ratio 17 10 - 20 (calc) [facility] External Sodium 146(H) 136 - 145 mmol/L [facility] External Potassium 4.1 3.4 - 5.0 mmol/L [facility] External Chloride 106 98 - 107 mmol/L [facility] External Carbon Dioxide 29 22 - 31 mmol/L [facility] External Anion Gap (AG) 11 7 - 25 (calc) [facility] External Calcium 9.6 8.6 - 10.2 mg/dL [facility] External Total Protein 6.1(L) 6.4 - 8.3 g/dL [facility] External Albumin 4.3 3.5 - 5.2 g/dL [facility] External Globulin 1.8 1.5 - 4.5 g/dL (calc) [facility] External Albumin/Globulin Ratio 2.4 1.1 - 2.5 (calc) [facility] External Bilirubin Total 0.2 0.1 - 1.2 mg/dL [facility] External Alkaline Phosphatase 80 30 - 121 U/L [facility] External AST (SGOT) 13 0 - 32 U/L [facility] External ALT (SGPT) 12 0 - 33 U/L [facility] External EGFR (If AFR/AM) 80 >=60 [facility] External Estimated GFR 69 >=60 [facility] Comment: NOTE Chronic kidney disease is defined as kidney damage for more than 3 months or a GFR less than 60 mL/min/1.73 m2 for greater than 3 months. This calculation has not been validated in women. For pediatric patients refer to National Kidney Foundation https://www.kidney.org/professionals/KDOQI/gfr_calculatorPed 05/05/2021 10:0 9 AM EST 05/05/2021 10:38 AM EST us Philipp Pacheco MD LAB BLOOD ORDERABLES Final Res ult [facility] [address] [place] [address] documented in this encounter Visit Diagnoses Not on filedocumented in this encounter Care Teams Box Shook Patcher Relationship Specialty Start Date End Date Samia Cai APRN [address] [place] [address] PCP - General 08/21/20 06/11/23 Janusz Robertson MD [address] [place] [address] PCP - General 06/12/23 06/13/23 Jarrett Hutchison MD [address] [place] [address] PCP - General Family Medicine 06/14/23 Philipp Pacheco MD [address] [place] [address] Medical Oncologist Hematology and Oncology 06/14/23 documented as of this encounter
== END 2024-09-28 23:59 | disposition home or self-care (01) ==
LOC: LAB.DROPOF 09-30 12:37
PROVIDERS: PCP Nurse Practitioner; Visit Provider Nurse Practitioner
DX: R31.9 Hematuria, unspecified (principal)
CPT/HCPCS: 87088; 87186

== ENCOUNTER 2024-12-17 12:59 | Outpatient (CLI) | payer MEDICARE, BC, SELFPAY ==
--- OUTSIDE RECORDS SUMMARY | 2024-12-17 13:08 | XMS_ITS | Encounter Summary ---
Author Organization Healthcare Address [address] [place] [address] Care Team Providers Care Milanese Knitting Machine Operator Name Role Phone TrellSamia Vickie GRIDER Primary Care Provider [phone] Janusz Robertson MD Primary Care Provider [phone] Philipp Pacheco MD Unavailable [phone] Jarrett Hutchison MD Primary Care Provider [phone] Encounter Details Date Type Department Care Team (Late st Contact Info) Description 05/05/2021 Orders Only [facility] at [facility] [address] [place] [address] Philipp Pacheco MD [address] [address] Social History Tobacco Use Types [...] External Glucose 98 74 - 100 mg/dL [facility] External BUN 15 6 - 20 mg/dL [facility] External Creatinine Blood 0.86 0.50 - 0.95 mg/dL [facility] External BUN/Creat Ratio 17 10 - 20 (calc) [facility] External Sodium 146(H) 136 - 145 mmol/L [facility] External Potassium 4.1 3.4 - 5.0 mmol/L [facility] External Chloride 106 98 - 107 mmol/L [facility] External Carbon Dioxide 29 22 - 31 mmol/L [facility] External Anion Gap (AG) 11 7 - 25 (calc) [facility] External Calcium 9.6 8.6 - 10.2 mg/dL [facility] External Total Protein 6.1(L) 6.4 - 8.3 g/dL [facility] External Albumin 4.3 3.5 - 5.2 g/dL [facility] External Globulin 1.8 1.5 - 4.5 g/dL (calc) [facility] External Albumin/Globulin Ratio 2.4 1.1 - 2.5 (calc) [facility] External Bilirubin Total 0.2 0.1 - 1.2 mg/dL [facility] External Alkaline Phosphatase 80 30 - 121 U/L [facility] External AST (SGOT) 13 0 - 32 U/L [facility] External ALT (SGPT) 12 0 - 33 U/L [facility] External EGFR (If AFR/AM) 80 >=60 [facility] External Estimated GFR 69 >=60 [facility] Comment: NOTE Chronic kidney disease [...] MD LAB BLOOD ORDERABLES Final Res ult [facility] [address] [place] [address] documented in this encounter Visit Diagnoses Not on filedocumented in this encounter Care Teams Milanese Knitting Machine Operator Relationship Specialty Start Date End Date Samia Cai APRN [address] [place] [address] PCP - General 08/21/20 06/11/23 Janusz Robertson MD [address] [place] [address] PCP - General 06/12/23 06/13/23 Jarrett Hutchison MD [address] [place] [address] PCP - General Family Medicine 06/14/23 Philipp Pacheco MD [address] [place] [address] Medical Oncologist Hematology and Oncology 06/14/23 documented as of this encounter
--- OUTSIDE RECORDS SUMMARY | 2024-12-17 13:08 | XMS_ITS | Clinical Summary ---
Author Organization Healthcare Address [address] [place] [address] Care Team Providers Care Loom Technician Name Role Phone Philipp Pacheco MD Unavailable [phone] Jarrett Hutchison MD Primary Care Provider [phone] Allergies Active Allergy Reactions Criticality Noted Date [...] - Risk 60-74 years 1-dose series) 2012 [id number] Vaccine ( season) 2024 04/06/2021, 01/08/2021, 08/28/2020, Additional history exists [facility]Y-Influenza Vaccine (#1) 12/09/202405/31, 01/08/2021, 01/14/2020, Additional history exists HPV Vaccines [...] age to complete this topic Insurance MEDICARE [facility] Care Teams Loom Technician Relationship Specialty Start Date End Date Jarrett Hutchison MD [address] [place] [address] 1 [place] [address] PCP - General Family Medicine 06/14/23 Philipp Pacheco MD [address] [place] [address] Medical Oncologist Hematology and Oncology 06/14/23
--- OUTSIDE RECORDS SUMMARY | 2024-12-17 13:08 | XMS_ITS | Encounter Summary ---
Author Organization Healthcare Address [address] [place] [address] Care Team Providers Care Java Programmer Name Role Phone TrellSamia Vickie GRIDER Primary Care Provider [phone] Janusz Robertson MD Primary Care Provider [phone] Philipp Pacheco MD Unavailable [phone] Jarrett Hutchison MD Primary Care Provider [phone] Encounter Details Date Type Department Care Team (Late st Contact Info) Description 05/05/2021 Orders Only [facility] at [facility] [address] [place] [address] Philipp Pacheco MD [address] [address] Social History Tobacco Use Types [...] External WBC 6.1 3.8 - 10.8 K/uL [facility] External Red Blood Cell (RBC) 4.75 3.80 - 5.20 M/uL [facility] External Hemoglobin 13.9 12.0 - 16.0 G/DL [facility] External Hematocrit 42.5 35.0 - 47.0 % [facility] External MCV 90 80 - 100 fL [facility] External MCH 29 26 - 35 PG [facility] External MCHC 33 32 - 36 G/DL [facility] External RDW 14.5 11.0 - 15.0 % [facility] External Mean Platelet Volume 7.2 6.2 - 10.5 fL [facility] External Platelets 268 130 - 400 K/uL [facility] External Neutrophil# 3.6 1.6 - 8.4 K/uL [facility] External Lymphocyte# 1.7 0.4 - 5.1 K/uL [facility] External Absolute Monocyte (Abs [place]) 0.7 0.0 - 1.2 K/uL [facility] External Eosinophils# 0.1 0.0 - 0.8 K/uL [facility] External Baso# 0.0 0.0 - 0.3 K/uL [facility] External Neutrophils % 58.8 42.0 - 78.0 % [facility] External Lymphocyte % 27.9 11.0 - 47.0 % [facility] External Monocyte % 10.8 0.0 - 11.0 % [facility] External Eosinophil% 1.9 0.0 - 7.0 % [facility] External Basophil % 0.6 0.0 - 3.0 % [facility] External Nucleated RBC%-Auto 0.0 0.0 - 0.9 % [facility] External Nucleated RBC Absolute 0.00 Not Estab. K/uL [facility] 05/05/2021 10:0 9 AM EST 05/05/2021 10:21 AM EST Philipp Pacheco MD LAB BLOOD ORDERABLES Final Res ult [facility] [address] [place] [address], documented in this encounter Visit Diagnoses Not on filedocumented in this encounter Care Teams Java Programmer Relationship Specialty Start Date End Date Samia Cai APRN [address] [place] [address] PCP - General 08/21/20 06/11/23 Janusz Robertson MD [address] [place] [address] PCP - General 06/12/23 06/13/23 Jarrett Hutchison MD [address] [place] [address] PCP - General Family Medicine 06/14/23 Philipp Pacheco MD [address] [place] [address] Medical Oncologist Hematology and Oncology 06/14/23 documented as of this encounter
--- OUTSIDE RECORDS SUMMARY | 2024-12-17 13:08 | XMS_ITS | Encounter Summary ---
Author Organization Healthcare Address [address] [place] [address] Care Team Providers Care Data Systems Manager Name Role Phone TrellSamia Vickie GRIDER Primary Care Provider [phone] Janusz Robertson MD Primary Care Provider [phone] Philipp Pacheco MD Unavailable [phone] Jarrett Hutchison MD Primary Care Provider [phone] Encounter Details Date Type Department Care Team (Late st Contact Info) Description 06/08/2022 Orders Only [facility] [address] [place] [address] Philipp Pacheco MD [address] [address] Social History Tobacco Use Types [...] External WBC 7.1 3.8 - 10.8 K/uL [facility] External Red Blood Cell (RBC) 4.49 3.80 - 5.20 M/uL [facility] External Hemoglobin 13.5 12.0 - 16.0 G/DL [facility] External Hematocrit 40.2 35.0 - 47.0 % [facility] External MCV 90 80 - 100 fL [facility] External MCH 30 26 - 35 PG [facility] External MCHC 34 32 - 36 G/DL [facility] External RDW 14.8 11.0 - 15.0 % [facility] External Mean Platelet Volume 6.8 6.2 - 10.5 fL [facility] External Platelets 311 130 - 400 K/uL [facility] External Neutrophil# 5.0 1.6 - 8.4 K/uL [facility] External Lymphocyte# 1.4 0.4 - 5.1 K/uL [facility] External Absolute Monocyte (Abs Grant) 0.5 0.0 - 1.2 K/uL [facility] External Eosinophils# 0.1 0.0 - 0.8 K/uL [facility] External Baso# 0.0 0.0 - 0.3 K/uL [facility] External Neutrophils % 71.5 42.0 - 78.0 % [facility] External Lymphocyte % 19.3 11.0 - 47.0 % [facility] External Monocyte % 7.5 0.0 - 11.0 % [facility] External Eosinophil% 1.1 0.0 - 7.0 % [facility] External Basophil % 0.6 0.0 - 3.0 % [facility] External Nucleated RBC%-Auto 0.1 0.0 - 0.9 % [facility] External Nucleated RBC Absolute 0.01 Not Estab. K/uL [facility] 06/08/2022 11:0 8 AM EST 06/08/2022 11:18 AM EST Pihlipp Pacheco MD LAB BLOOD ORDERABLES Final Res ult [facility] [address] [place] [address], documented in this encounter Visit Diagnoses Not on filedocumented in this encounter Care Teams Data Systems Manager Relationship Specialty Start Date End Date Samia Cai APRN [address] [place] [id number] PCP - General 08/21/20 06/11/23 Janusz Robertson MD [address] [place] [id number] PCP - General 06/12/23 06/13/23 Jarrett Hutchison MD [address] [place] [id number] PCP - General Family Medicine 06/14/23 Philipp Pacheco MD [address] [place] [id number] Medical Oncologist Hematology and Oncology 06/14/23 documented as of this encounter
--- OUTSIDE RECORDS SUMMARY | 2024-12-17 13:08 | XMS_ITS | Encounter Summary ---
Author Organization Healthcare Address [address] [place] [address] Care Team Providers Care Cnc Operator Machinist Name Role Phone TrellSamia Vickie GRIDER Primary Care Provider [phone] Janusz Robertson MD Primary Care Provider [phone] Philipp Pacheco MD Unavailable [phone] Jarrett Hutchison MD Primary Care Provider [phone] Encounter Details Date Type Department Care Team (Late st Contact Info) Description 06/08/2022 Orders Only [facility] [address] [place] [address] Philipp Pacheco MD [address] [address] Social History Tobacco Use Types [...] External Glucose 127(H) 74 - 100 mg/dL [facility] External BUN 11 6 - 20 mg/dL [facility] External Creatinine Blood 0.80 0.50 - 0.95 mg/dL [facility] External BUN/Creat Ratio 14 10 - 20 (calc) [facility] External Sodium 142 136 - 145 mmol/L [facility] External Potassium 4.1 3.4 - 5.0 mmol/L [facility] External Chloride 104 98 - 107 mmol/L [facility] External Carbon Dioxide 27 22 - 31 mmol/L [facility] External Anion Gap (AG) 11 7 - 25 (calc) [facility] External Calcium 9.8 8.6 - 10.2 mg/dL [facility] External Total Protein 7.2 6.4 - 8.3 g/dL [facility] External Albumin 4.1 3.5 - 5.2 g/dL [facility] External Globulin 3.1 1.5 - 4.5 g/dL (calc) [facility] External Albumin/Globulin Ratio 1.3 1.1 - 2.5 (calc) [facility] External Bilirubin Total 0.3 0.1 - 1.2 mg/dL [facility] External Alkaline Phosphatase 78 30 - 121 U/L [facility] External AST (SGOT) 15 0 - 32 U/L [facility] External ALT (SGPT) 14 0 - 33 U/L [facility] External Estimated GFR 79 >=60 [facility] Comment: NOTE New calculation for GFR (CKD-EPI 2020) is formulated without race adjustment factors at the recommendation of the National Kidney Foundation and [place] [employer]ph[employer]. This calculation has not been validated in women. For pediatric patients refer to https://www.kidney.org/professionals/KDOQI/gfr_calculatorPed 06/08/2022 11:0 8 AM EST 06/08/2022 11:18 AM EST us Philipp Pacheco MD LAB BLOOD ORDERABLES Final Res ult [facility] [address] [place] [address], documented in this encounter Visit Diagnoses Not on filedocumented in this encounter Care Teams Cnc Operator Machinist Relationship Specialty Start Date End Date Samia Cai APRN [address] [place] [address] [id number] PCP - General 08/21/20 06/11/23 Janusz Robertson MD [address] [place] [address] PCP - General 06/12/23 06/13/23 Jarrett Hutchison MD [address] [place] [address] PCP - General Family Medicine 06/14/23 Philipp Pacheco MD [address] [place] [address] Medical Oncologist Hematology and Oncology 06/14/23 documented as of this encounter
--- OUTSIDE RECORDS SUMMARY | 2024-12-17 13:08 | XMS_ITS | Clinical Summary ---
[facility] Organization [facility] Address [address] [place] [address] Care Team Providers Care Dressmaker Garment Fitter Name Role Phone Janusz Robertson MD Primary Care Provider + Medications atorvastatin (LIPITOR) 40 MG tablet TAKE ONE TABLET BY MOUTH ONCE A DAY 90 tablet 1 03/02/2022 Active Sod Picosulfate-Mag Ox-Cit Acd 10-3.5-12 MG-GM -GM/160ML solution Take 350 mL by mouth Take As Directed for 1 dose. 350 mL 09/05/2024 Active Encounters Date Type Department Care Team Description 09/20/2024 Results Follow-Up [facility] [address] [place] [id number] Miladys Lezama MD 09/19/2024 8:30 AM EDT Outside Facility Service [facility] [address] [facility] [address] [place] [phone] Miladys Lezama MD from Last 3 Months Social History Tobacco Use Types Packs/Day Years Used Date Smoking Tobacco: Never Assessed Abuse Screen Answer Date Recorded Unsafe at Home or Work/School Not on file Feels Threatened by Someone? Not on file 12/2022 Does Anyone Keep You from Co ntacting Others or Doint Things Outside the Home? Not on file 01/16/2023 Physical Sign of Abuse Present Not on file 1 Housing Stability Answer Date Recorded Current Living Arrangements Not on file 12/2022 Potentially Unsafe Housing Conditions Not on moy e 01/16/2023 Family and Community Support Answer Kendrick e Recorded Help with Day-to-Day Activities Not on file 01/16/2023 Lonely or Isolated Not on file 01/16/2023 Employment Answer Date Recorded Do you want help finding or keeping work or a miguel b? Not on file 01/16/2023 Disabilities Answer Date Recorded Concentrating, Remembering, or Making Decisions Difficulty Not on file 01/16/2023 Doing Errands Independently Difficulty Not on fi le 01/16/2023 Education Answer Date Recorded Help with school or training? Not on file Preferred Language Not on file 01/16/2023 Comments Unknown Sex and Gender Information Value Date Recorded Sex Assigned at Not on file Legal Sex Female 10:06 AM EDT Gender Identity Not on file Sexual Orientation Not on file Plan of Treatment Health Maintenance Due Date Last Done Comments DXA SCAN 1950 Pneumococcal Vaccine 50+ (1 of 2 - PCV) 01/27/1971 TDAP/TD VACCINES (1 - Tdap) 01/27/1971 COLOGUARD 01/27/1997 COLON CANCER SCREENING 5 YEA R SIGMOIDOSCOPY 01/27/1997 CT COLONOGRAPHY 01/27/1997 FECAL OCCULT BLOOD TEST 01/27/1997 FIT Testing (1 year) 01/27/1997 ZOSTER VACCINE (1 of 2) 01/27/2002 ANNUAL PHYSICAL 05/04/2021 HEPATITIS C SCREENING 05/04/2021 COVID-19 Vaccine ( - 2024-2 6 season) 2024 04/06/2021, 01/08/2021, 08/28/2020, Additional history exists INFLUENZA VACCINE 01/08/2025 05/31/2023, , 01/14/2020, Additional history exists MAMMOGRAM 06/19/2026 06/19/2024, 06/08, 06/14/2023, Additional history exists COLONOSCOPY 09/19/2029 09/19/2024, 11/0 12/2019, 05/31/2016 COLORECTAL CANCER SCREENING 09/19/2029 Procedures Procedure Name Priority Date/Time Associated Diagnosis Comments TISSUE EXAM, [facility] ([facility]) Routine 09/19/2024 9:20 AM EDT Encounter for screening for malignant neoplasm of colon SCANNED - COLONOSCOPY 09/19/2024 from Last 3 Months Results * TISSUE EXAM, [facility] ([facility]) (09/19/2024 9:20 AM EDT) Reference Lab Report [facility] [address] [place] [address] or [phone] Javy Tran M.D., Physical Design Engineer PATIENT NAME [facility] [id number] AGE SEX SSN CLIENT REF # [facility] [id number] F [id number] REQUEST[address] [place] [address] MILADYS LEZAMA ARDY DATE COLLECTED DATE RECEIVED DATE REPORTED 09/19/2024 09/19/2024 09/20/2024 DIAGNOSIS: A. SIGMOID COLON POLYP: Tubular adenoma, negative for high-grade dysplasia B. ASCENDING COLON POLYPS: Tubular adenoma fragments, negative for high-grade dysplasia C. DESCENDING COLON POLYP: Tubular adenoma, negative for high-grade dysplasia [facility] CLINICAL HISTORY: Encounter for screening for malignant neoplasm of colon SPECIMENS RECEIVED: A. SIGMOID COLON POLYP B. ASCENDING COLON POLYPS C. DESCENDING COLON POLYP MICROSCOPIC DESCRIPTION: Tissue blocks are prepared and slides are examined microscopically on all specimens. See diagnosis for details. Professional interpretation rendered by Bianca Boggs D.O. at [employer], [facility], [address] [place] [address]. GROSS DESCRIPTION: A. Labeled sigmoid polyp , consisting of multiple pieces of johnson soft tissue measuring 1.1 x 0.5 x 0.2 cm in aggregate, submitted entirely in 1 cassette. SOG B. Labeled ascending polyp , consisting of 3 pieces of johnson soft tissue measuring 0.7 x 0.5 x 0.2 cm in aggregate, submitted entirely in 1 cassette. C. Labeled descending polyp , consisting of multiple pieces of johnson-yellow fragmented soft tissue (possible vegetative matter) measuring 1.6 x 0.9 x 0.2 cm in aggregate, submitted entirely 1 cassette. REVIEWED, DIAGNOSED AND ELECTRONICALLY SIGNED BY: Bianca Boggs D.O. CPT CODES: [id number] 09/20/2024 3:38 PM EDT [facility] Tissue 09/19/2024 9:20 AM EDT 09/19/2024 3:22 PM EDT us Miladys Lezama MD PATHOLOGY/CYTOLOGY ORDERABLES Final Result [facility]
[address] [place] [address], * Colonoscopy, Scan (09/19/2024) us Miladys Lezama MD CHART REVIEW TABS Final Res ult from Last 3 Months Insurance MEDICARE A & B Care Teams Dressmaker Garment Fitter Relationship Specialty Start Date End Date Janusz Robertson MD PCP - General Family Medicine 02/03/16
[2024-12-17 13:12] VITALS: BP 102/52; PULSE 83; RESP 14; TEMP 36.3; O2SAT 97
[2024-12-17] MEDS: DENOSUMAB 60 MG/ML SYRINGE SUBCUT (13:12)
== END 2024-12-17 13:27 | disposition home or self-care (01) ==
LOC: INF 13:04
PROVIDERS: PCP Family Medicine; Visit Provider Family Medicine
DX: M81.0 Age-related osteoporosis without current pathological fracture (principal)
CPT/HCPCS: 96372; J0897